=== PATIENT | male | born 1975 | race Caucasian/White ===

== ENCOUNTER 2018-07-15 14:16 | Outpatient (RCR) | payer BC, SELFPAY ==
[2018-07-15 14:55] VITALS: BP 151/86; PULSE 88; RESP 18; TEMP 31.1; BMI 41.2
--- NOTE | 2018-07-15 16:20 | PCM.WC.HP ---
(1) Non-healing wound of lower extremity Status: Acute Current Visit: Yes Code(s): S81.809A - Unspecified open wound, unspecified lower leg, initial encounter (2) Venous insufficiency of left lower extremity Status: Chronic Current Visit: Yes Code(s): I87.2 - Venous insufficiency (chronic) (peripheral) (3) History of vein stripping Status: Chronic Current Visit: Yes Code(s): Z98.890 - Other specified postprocedural states (4) Edema of both lower extremities Status: Chronic Current Visit: Yes Code(s): R60.0 - Localized edema History of Present Illness Date of Service: 07/15/18 Chief Complaint: Nonhealing wound of left lower extremity wound left lower extremity caused by dog scratched March 2018. History of Wound: Patient obtained a left lower leg wound caused by a scratch from his dog 03/2018. He ended up hospitalized with cellulitis and had IV antibiotics. Since March he has been on Keflex for MSSA. He has been applying Neosporin to the site. Patient has a history of vein stripping 15 years ago of that left leg. He has a history of venous stasis. He has significant amount of edema of his lower extremities. Patient has compression stockings that he has not been wearing due to the significant amount of pain of his left lower extremity wound. Patient is obese. Denies smoking. Denies any recent fever chills nausea or vomiting. Past Medical History Past Medical History: Chronic Problems Venous insufficiency of left lower extremity (Chronic) History of vein stripping (Chronic) Edema of both lower extremities (Chronic) Allergies/Adverse Reactions: Allergies shrimp Allergy (Verified 07/17/18 10:06) Unknown Smoking Status: Never smoker Tobacco Use: Non-smoker Review of Systems Constitutional: Denies: Chills, Fever Eyes: Denies: Pain, Vision Change HEENT: Denies: Difficulty Hearing, Difficulty Swallowing, Sinus Congestion Cardiovascular: Denies: Chest Pain, Palpitations Respiratory: Denies: Cough, Shortness of Breath Gastrointestinal: Denies: Diarrhea, Nausea, Vomiting Genitourinary: Denies: Dysuria, Hematuria Musculoskeletal: Reports: Leg Pain - Left lower extremity pain at wound site. Psychiatric: Denies: Anxiety, Depression - Physical Exam Vital Signs Temp Pulse Resp BP 88 F L 88 18 151/86 H 07/15/18 14:55 07/15/18 14:55 07/15/18 14:55 07/15/18 14:55 General: Alert, Oriented x3, Cooperative, No apparent distress HEENT: PERRLA, EOMI Oral: Moist Mucosa Neck: No JVD Lungs: Clear to auscultation, Normal air movement Cardiovascular: Regular rate, Regular Rhythm Extremities: Capillary Refill Less than 3 Seconds, No Calf Tenderness, Diminished Peripheral Pulses, Edema - +3 pitting edema bilateral lower extremities. Bilateral lower extremities discolored skin tone purple hue, skin extremely dry and flaky., Tenderness Skin: Ulcer/ Wound - Left lower extremity anterior wound Wound Measurements and Assessment WC - Nurse 1 - General Ulcer Measurement Start: 07/15/18 14:55 Freq: Status: Active Protocol: Activity Type Activity Date Activity User E-Sign Co-Sign Detail Recorded Client Recorded Date Recorded By Document 07/15/18 14:55 DV [id number] 07/15/18 15:10 DV 07/15/18 14:55 Wound Center Nurse 1 [Ulcer Assessment] #1 Left superior moralez -Combined with other wound No -Current Size (cm) - Length 6.5 -Current Size (cm) - Width 3.7 -Current Size (cm) - Depth 0.2 -Total Square Cm 24.05 -Date of Last Picture (Recall this 07/15/18 field) -Photo Taken Yes -Epithelialization Small 1-33% -Tunneling No -Undermining/Tunneling No -Circular Undermining No -Classification - Thickness Full Thickness without Exposed Support Structure -Exudate Amt Medium (34-66%) -Exudate Type Serosanguineous -Wound Margin Flat & Intact -Granulation Amt Medium (34-66%) -Granulation Quality Red -Slough/Fibrin Yes -Necrosis Amt Medium (34-66%) -Necrotic Tissue Type Adherent Slough -Structure Exposed Fascia Fat Layer Exposed -Texture (Adali-wound Skin Appearance) Assessed Friable Localized Edema Scarring -Moisture (Adali-wound Skin Appearance Assessed ) Maceration -Color (Adali-wound Skin Appearance) Assessed Erythema Hemosiderin Staining -Temperature (Adali-wound Skin No Abnormality Appearance) (Pt Warm) -Tenderness on Palpation (Adali-wound Yes Skin Appearance) -Ulcer Cleansing Rinsed/ Irrigated with Saline -Foul Odor after Cleansing No -Anesthetic Used 5% Lidocaine Gel [Edema Assessment] -Lower Limb Edema Present Yes -Right Calf (cm) 51.0 -Right Ankle (cm) 31.0 -Left Calf (cm) 52.0 -Left Ankle (cm) 31.0 SILVANO - Nurse 2 - General Ulcer CM Notes Start: 07/15/18 14:55 Freq: Status: Active Protocol: Activity Type Activity Date Activity User E-Sign Co-Sign Detail Recorded Client Recorded Date Recorded By Document 07/15/18 15:30 CORI [id number] 07/15/18 15:33 CORI 07/15/18 15:30 Wound Center Nurse 2 [Procedure/Treatment] 2-left inferior moralez -Time 15:31 -Correct Patient Yes -Correct Side, Site, Position Yes -Correct Procedure Yes -Procedure Performed Yes -Type of Procedure Debridement -Clinical Debridement Subcutaneous -Post Debridement Size (cm) - Length 1.3 -Post Debridement Size (cm) - Width 1.2 -Post Debridement Size (cm) - Depth 0.2 -Total Square Cm 1.56 -Wound/Ulcer Outcome Not Healed -Ulcer Cleansing Rinsed/ Irrigated with Saline -Foul Odor after Cleansing No -Bioengineered Tissue No -Bleeding Controlled with Pressure -Treatment Response Procedure Tolerated Well #1 Left superior moralez -Time 15:32 -Correct Patient Yes -Correct Side, Site, Position Yes -Correct Procedure Yes -Procedure Performed Yes -Type of Procedure Debridement -Clinical Debridement Subcutaneous -Post Debridement Size (cm) - Length 2.5 -Post Debridement Size (cm) - Width 1.8 -Post Debridement Size (cm) - Depth 0.2 -Total Square Cm 4.50 -Wound/Ulcer Outcome Not Healed -Ulcer Cleansing Rinsed/ Irrigated with Saline -Foul Odor after Cleansing No -Bioengineered Tissue No -Bleeding Controlled with Pressure -Treatment Response Procedure Tolerated Well [See Physician Procedure note for Specifics] Pain Scale: 0-10 Numeric [Pain] -Is Patient Pain Free? Yes Musculoskeletal: No Tenderness to Palpation of Joints or Extremities Neurological: Neuro grossly intact Psych/Mental Status: Normal Affect, Appropriate, Alert and oriented to time, place, person, mood and affect Debridement Note Post-Debridement Measurements/Treatment SILVANO - Nurse 2 - General Ulcer CM Notes Start: 07/15/18 14:55 Freq: Status: Active Protocol: Activity Type Activity Date Activity User E-Sign Co-Sign Detail Recorded Client Recorded Date Recorded By Document 07/15/18 15:30 [id number] 07/15/18 15:33 07/15/18 15:30 Wound Center Nurse 2 2-left inferior moralez -Time 15:31 -Correct Patient Yes -Correct Side, Site, Position Yes -Correct Procedure Yes -Procedure Performed Yes -Type of Procedure Debridement -Clinical Debridement Subcutaneous -Post Debridement Size (cm) - Length 1.3 -Post Debridement Size (cm) - Width 1.2 -Post Debridement Size (cm) - Depth 0.2 -Total Square Cm 1.56 -Wound/Ulcer Outcome Not Healed -Ulcer Cleansing Rinsed/ Irrigated with Saline -Foul Odor after Cleansing No -Bioengineered Tissue No -Bleeding Controlled with Pressure -Treatment Response Procedure Tolerated Well #1 Left superior moralez -Time 15:32 -Correct Patient Yes -Correct Side, Site, Position Yes -Correct Procedure Yes -Procedure Performed Yes -Type of Procedure Debridement -Clinical Debridement Subcutaneous -Post Debridement Size (cm) - Length 2.5 -Post Debridement Size (cm) - Width 1.8 -Post Debridement Size (cm) - Depth 0.2 -Total Square Cm 4.50 -Wound/Ulcer Outcome Not Healed -Ulcer Cleansing Rinsed/ Irrigated with Saline -Foul Odor after Cleansing No -Bioengineered Tissue No -Bleeding Controlled with Pressure -Treatment Response Procedure Tolerated Well Pain Scale: 0-10 Numeric Is Patient Pain Free? Yes Wound debrided: Left anterior lower extremity Laterality: Left Type of Debridement: Excisional debridement Anesthesia Used: 5% Lidocaine Gel Depth: Down to and including healthy tissue, in the subcutaneous layer Percentage of wound debrided: 100 Instrument Used: 5mm curette Tissue Removed: Subcutaneous tissue, slough and bioderm. Severity: Fat Layer Exposed Amount of bleeding with debridement: Mild Bleeding Controlled with: Pressure Patient tolerated procedure well Assessment/Plan Ordered vascular studies and wound culture. Active Problems Non-healing wound of lower extremity (Acute) Venous insufficiency of left lower extremity (Chronic) History of vein stripping (Chronic) Edema of both lower extremities (Chronic) Assessment: 1. Non-healing wound of lower extremity (Acute). 2. Venous insufficiency of left lower extremity (Chronic). 3. History of vein stripping (Chronic). 4. Edema of both lower extremities (Chronic) Plan: Patient was seen and examined the wound center today plan of care was developed. Subcutaneous debridement was performed today. Patient tolerated the procedure well. Patient's wounds consists of a cluster wound on his left anterior/lateral lower extremity. We will have him apply Aquacel silver daily to the wound. With his significant amount of lower extremity edema we will have him apply double Adonis wrap to left lower extremity until further ocular studies were obtained. He may wear his home compression on his right lower extremity. Instructed to try to elevate his legs for 30 minutes at least 3 times a day. Wound cultures were obtained. Baseline blood work was ordered. Vascular studies were ordered. Patient educated on the importance of diet on wound healing and instructed to increase his protein intake. Patient verbalized understanding. We will have him follow-up in the wound center in 1 week. Update 07/17 2018?wound culture comes back positive for Staphylococcus aureus. Phoned and notified patient to stop his Keflex. We will start him on doxycycline twice daily with food.
[2018-07-15 19:22] LABS: ALB/GLOB Ratio 0.9 RATIO (0.9-2.4); AST(SGOT) 18 U/L (15-37); Alanine Aminotransfer ALT/SGPT 30 U/L (16-61); Albumin, Serum 3.7 g/dL (3.2-5.0); Alkaline Phosphatase 63 U/L (45-117); Anion Gap 9 (5-15); BUN 17 mg/dL (7-18); BUN/Creat Ratio 19.7 RATIO (10-20); Calcium,Total 9.1 mg/dL (8.5-10.1); Chloride 105 mmol/L (98-107); Creatinine, Serum 0.86 mg/dL (0.70-1.30); EST Glomerular Filtration Rate 103 mL/min (>60); Est Glom Filt Rate - Afr Amer 124 mL/min (>60); Estimated Creatinine Clearance 132.37 ml/min; Globulin 3.9 g/dL (2.2-4.2); Glucose 105 mg/dL (74-106); Potassium 3.5 mmol/L (3.5-5.1); Prealbumin 21.4 mg/dL (20.0-40.0); Protein, Total 7.6 g/dL (6.4-8.2); Sodium Level 141 mmol/L (136-145)
[2018-07-15 19:28] LABS: Hematocrit 34.9 % (40-54); Hemoglobin 11.1 g/dl (13.0-16.5); Mean Corp Hgb Conc 31.8 g/gl (32-36); Mean Corpuscular Hgb 28.1 pg (27.0-32.0); Mean Corpuscular Volume 88.4 fL (80-94); Mean Platelet Vol. 11.3 fl (6.2-12.0); Platelet Count 279 K/mm3 (150-450); RBC Distribution Width CV 14.1 % (11.6-14.6); Red Blood Count 3.95 M/mm3 (4.6-6.2); White Blood Count 8.4 K/mm3 (4.4-11.0)
[2018-07-15 19:30] LABS: Scan Indicated on CBC? Y/N NO
== END 2018-07-20 23:59 ==
LOC: WC 14:16
PROVIDERS: Visit Provider Nurse Practitioner Family
DX: I87.2 Venous insufficiency (chronic) (peripheral) (principal); R60.0 Localized edema; S80.812A Abrasion, left lower leg, initial encounter; W45.8XXA Other foreign body or object entering through skin, initial encounter
CPT/HCPCS: 11042; 80053; 84134; 85027; 87070; 87075; 87077; 87186; 87205; 99203; G0463

== ENCOUNTER 2018-08-12 15:30 | Outpatient (RCR) | payer BC, SELFPAY ==
[2018-07-21 01:47] VITALS: BP 151/86; PULSE 88; RESP 18; TEMP 31.1
--- NOTE | 2018-07-22 14:06 | VDLE_ITS ---
Reason For Study: ulcer, pain, swelling RIGHT LEFT CFV is compressible, spontaneous, phasic, CFV is compressible, spontaneous, phasic, competent and demonstrates normal competent, and demonstrates normal augmentation. augmentation. FV is compressible, spontaneous, phasic, FV is compressible, spontaneous, phasic, competent and demonstrates normal competent and demonstrates normal augmentation. augmentation. T/P Trunk is compressible. POP V is compressible, spontaneous, phasic, PTV is compressible. competent and demonstrates normal RT PerV is compressible. augmentation. POP V is compressible with reflux upon T/P Trunk is compressible. augmentation. PTV is compressible. S-F Junction is competent. LT PerV is compressible. GSV is incompetent throughout for greater S-F Junction is incompetent for greater than .5 seconds. GSV measures .490 x .519 cm than .5 seconds. ASV below the knee is incompetent for GSV is partially harvested. Large segment of greater than .5 seconds. ASV measures .432 GSV in the thigh is incompetent for greater x .432 cm. than .5 seconds. GSV measures .876 x .878 SSV is incompetent for greater than .5 cm. Large segment of GSV at the ankle is seconds. SSV measures .2 x .175 cm. incompetent for greater than .5 seconds. GSV Political Analyst V 11 cm proximal to the medial measures .618 x .637 cm. malleolus is incompetent for greater than .5 ASV in the thigh is incompetent for greater seconds. than .5 seconds. ASV measures .790 x .778 Procedure cm. Exam performed in department. SSV is incompetent for greater than .5 The exam was diagnostic. seconds. SSV measures .338 x .364 cm. Political Analyst V 7 cm proximal to the medial malleolus is incompetent for greater than .5 seconds. Interpretation Summary Deep veins of the lower extremities are bilaterally patent and compressible segmentally. There is no evidence of deep vein thrombosis on either side. The right popliteal vein is incompetent. The right common femoral vein and femoral vein are competent. Valvular competence appears intact within the proximal deep venous system on the left . The greater saphenous veins appear bilaterally patent and compressible segmentally. The right sapheno-femoral junction is competent . The left sapheno- femoral junction is incompetent . The right greater saphenous vein appears segmentally incompetent. The left greater saphenous vein has been partially harvested. Of the segments remaining, the left greater saphenous vein is incompetent in the left thigh and near the left ankle. Small saphenous veins are patent and incompetent bilaterally. A right accessory saphenous vein below the knee is incompetent. A left accessory saphenous vein in the thigh is incompetent. An incompetent freight trucker vein is noted in the right calf, located 11 centimeters proximal to the right medial malleolus. An incompetent freight trucker vein is noted in the left calf, located 7 centimeters proximal to the left medial malleolus. Crdering Physician: Maeve Olson NP- Performed By: Kristian Levi RVT and Student
[2018-07-22 15:01] VITALS: BP 164/97; PULSE 79; RESP 16; TEMP 36.9
--- NOTE | 2018-07-22 16:36 | PCM.WC.PN ---
(1) Non-healing wound of lower extremity Status: Acute Current Visit: Yes Code(s): S81.809A - Unspecified open wound, unspecified lower leg, initial encounter (2) Venous insufficiency of left lower extremity Status: Chronic Current Visit: Yes Code(s): I87.2 - Venous insufficiency (chronic) (peripheral) (3) History of vein stripping Status: Chronic Current Visit: No Code(s): Z98.890 - Other specified postprocedural states (4) Edema of both lower extremities Status: Chronic Current Visit: Yes Code(s): R60.0 - Localized edema Type of Wound Date of Service: 07/22/18 Chief Complaint: Nonhealing wound of left lower extremity wound left lower extremity caused by dog scratched March 2018. History of Wound: Patient obtained a left lower leg wound caused by a scratch from his dog 03/2018. He ended up hospitalized with cellulitis and had IV antibiotics. Since March he has been on Keflex for MSSA. He has been applying Neosporin to the site. Patient has a history of vein stripping 15 years ago of that left leg. He has a history of venous stasis. He has significant amount of edema of his lower extremities. Patient has compression stockings that he has not been wearing due to the significant amount of pain of his left lower extremity wound. Patient is obese. Denies smoking. Denies any recent fever chills nausea or vomiting. Progress of Wound: Improving. - Physical Exam Vital Signs Temp Pulse Resp BP 98.4 F 79 16 164/97 H 07/22/18 15:01 07/22/18 15:01 07/22/18 15:01 07/22/18 15:01 General: Alert, Oriented x3, Cooperative HEENT: Atraumatic Oral: Moist Mucosa Cardiovascular: Regular rate Extremities: Edema, Peripheral Pulses Normal Skin: Ulcer/ Wound - Left lower extremity cluster ulcer Wound Measurements and Assessment WC - Nurse 1 - General Ulcer Measurement Start: 07/22/18 15:00 Freq: Status: Active Protocol: Activity Type Activity Date Activity User E-Sign Co-Sign Detail Recorded Client Recorded Date Recorded By Document 07/22/18 15:01 [facility] [id number] 07/22/18 15:10 [facility] 07/22/18 15:01 Wound Center Nurse 1 [Ulcer Assessment] 2-left inferior moralez -Combined with other wound No -Current Size (cm) - Length 1.3 -Current Size (cm) - Width 1.4 -Current Size (cm) - Depth 0.2 -Total Square Cm 1.82 -Photo Taken No -Epithelialization None Present -Tunneling No -Undermining/Tunneling No -Circular Undermining No -Exudate Amt Small (1-33%) -Exudate Type Serosanguineous -Wound Margin Distinct, Outline Attached -Granulation Amt Small (1-33%) -Granulation Quality Red -Slough/Fibrin Yes -Necrosis Amt Large (67-100%) -Necrotic Tissue Type Adherent Slough -Texture (Adali-wound Skin Appearance) Scarring -Moisture (Adali-wound Skin Appearance Dry/Scaly ) -Color (Adali-wound Skin Appearance) Hemosiderin Staining -Temperature (Adali-wound Skin No Abnormality Appearance) (Pt Warm) -Tenderness on Palpation (Adali-wound Yes Skin Appearance) -Ulcer Cleansing Rinsed/ Irrigated with Saline -Foul Odor after Cleansing No -Anesthetic Used 4% Lidocaine Solution 5% Lidocaine Gel #1 Left superior moralez -Combined with other wound No -Current Size (cm) - Length 2.4 -Current Size (cm) - Width 2.1 -Current Size (cm) - Depth 0.2 -Total Square Cm 5.04 -Photo Taken No -Epithelialization None Present -Tunneling No -Undermining/Tunneling No -Circular Undermining No -Exudate Amt Small (1-33%) -Exudate Type Serosanguineous -Wound Margin Distinct, Outline Attached -Granulation Amt Small (1-33%) -Granulation Quality Red -Slough/Fibrin Yes -Necrosis Amt Large (67-100%) -Necrotic Tissue Type Adherent Slough -Texture (Adali-wound Skin Appearance) Scarring -Moisture (Adali-wound Skin Appearance Dry/Scaly ) -Color (Adali-wound Skin Appearance) Hemosiderin Staining -Temperature (Adali-wound Skin No Abnormality Appearance) (Pt Warm) -Tenderness on Palpation (Adali-wound Yes Skin Appearance) -Ulcer Cleansing Rinsed/ Irrigated with Saline -Foul Odor after Cleansing No -Anesthetic Used 4% Lidocaine Solution 5% Lidocaine Gel [Edema Assessment] -Lower Limb Edema Present Yes -Left Calf (cm) 49.9 -Left Ankle (cm) 30.1 WC - Nurse 2 - General Ulcer CM Notes Start: 07/22/18 15:00 Freq: Status: Active Protocol: Activity Type Activity Date Activity User E-Sign Co-Sign Detail Recorded Client Recorded Date Recorded By Document 07/22/18 15:43 DV [id number] 07/22/18 15:45 DV 07/22/18 15:43 Wound Center Nurse 2 [Procedure/Treatment] 2-left inferior moralez -Time 15:43 -Correct Patient Yes -Correct Side, Site, Position Yes -Correct Procedure Yes -Procedure Performed Yes -Type of Procedure Debridement -Clinical Debridement Subcutaneous -Post Debridement Size (cm) - Length 1.3 -Post Debridement Size (cm) - Width 1.0 -Post Debridement Size (cm) - Depth 0.2 -Total Square Cm 1.30 -Wound/Ulcer Outcome Not Healed -Ulcer Cleansing Rinsed/ Irrigated with Saline -Foul Odor after Cleansing No -Bioengineered Tissue No -Bleeding Controlled with Pressure -Treatment Response Procedure Tolerated Well #1 Left superior moralez -Time 15:43 -Correct Patient Yes -Correct Side, Site, Position Yes -Correct Procedure Yes -Procedure Performed Yes -Type of Procedure Debridement -Clinical Debridement Subcutaneous -Post Debridement Size (cm) - Length 2.2 -Post Debridement Size (cm) - Width 1.7 -Post Debridement Size (cm) - Depth 0.2 -Total Square Cm 3.74 -Wound/Ulcer Outcome Not Healed -Ulcer Cleansing Rinsed/ Irrigated with Saline -Foul Odor after Cleansing No -Bioengineered Tissue No -Bleeding Controlled with Pressure -Treatment Response Procedure Tolerated Well [See Physician Procedure note for Specifics] Pain Scale: 0-10 Numeric [Pain] -Is Patient Pain Free? Yes Debridement Note Post-Debridement Measurements/Treatment WC - Nurse 2 - General Ulcer CM Notes Start: 07/22/18 15:00 Freq: Status: Active Protocol: Activity Type Activity Date Activity User E-Sign Co-Sign Detail Recorded Client Recorded Date Recorded By Document 07/22/18 15:43 DV [id number] 07/22/18 15:45 DV 07/22/18 15:43 Wound Center Nurse 2 2-left inferior moralez -Time 15:43 -Correct Patient Yes -Correct Side, Site, Position Yes -Correct Procedure Yes -Procedure Performed Yes -Type of Procedure Debridement -Clinical Debridement Subcutaneous -Post Debridement Size (cm) - Length 1.3 -Post Debridement Size (cm) - Width 1.0 -Post Debridement Size (cm) - Depth 0.2 -Total Square Cm 1.30 -Wound/Ulcer Outcome Not Healed -Ulcer Cleansing Rinsed/ Irrigated with Saline -Foul Odor after Cleansing No -Bioengineered Tissue No -Bleeding Controlled with Pressure -Treatment Response Procedure Tolerated Well #1 Left superior moralez -Time 15:43 -Correct Patient Yes -Correct Side, Site, Position Yes -Correct Procedure Yes -Procedure Performed Yes -Type of Procedure Debridement -Clinical Debridement Subcutaneous -Post Debridement Size (cm) - Length 2.2 -Post Debridement Size (cm) - Width 1.7 -Post Debridement Size (cm) - Depth 0.2 -Total Square Cm 3.74 -Wound/Ulcer Outcome Not Healed -Ulcer Cleansing Rinsed/ Irrigated with Saline -Foul Odor after Cleansing No -Bioengineered Tissue No -Bleeding Controlled with Pressure -Treatment Response Procedure Tolerated Well Pain Scale: 0-10 Numeric Is Patient Pain Free? Yes Wound debrided: Left lower extremity superior ulcer Laterality: Left Type of Debridement: Excisional debridement Anesthesia Used: 4% Lidocaine Solution Depth: in the subcutaneous layer Percentage of wound debrided: 100 Instrument Used: 7mm curette Tissue Removed: Subcutaneous tissue and slough. Severity: Fat Layer Exposed Amount of bleeding with debridement: Mild Bleeding Controlled with: Pressure Patient tolerated procedure well - Additional Wound Wound debrided: Left lower extremity inferior ulcer Laterality: Left Type of Debridement: Excisional debridement Anesthesia Used: 4% Lidocaine Solution Depth: in the subcutaneous layer Percentage of wound debrided: 100 Instrument Used: 7mm curette Severity: Fat Layer Exposed Amount of bleeding with debridement: None Bleeding Controlled with: Pressure Patient tolerated procedure: Patient tolerated procedure well Assessment/Plan Active Problems Non-healing wound of lower extremity (Acute) Venous insufficiency of left lower extremity (Chronic) Edema of both lower extremities (Chronic) Assessment: 1. Non-healing wound of lower extremity (Acute). 2. Venous insufficiency of left lower extremity (Chronic). 3. History of vein stripping (Chronic). 4. Edema of both lower extremities (Chronic) Plan: Subcutaneous debridement was performed today. Patient tolerated the procedure well. Patient's wounds consists of a cluster wound on his left anterior/lateral lower extremity. He has been having issues with the Aquacel silver sticking to his wound and being very uncomfortable. We will have him apply Adaptic then apply Aquacel silver daily to the wound. With his significant amount of lower extremity edema we will have him apply double Adonis wrap to left lower extremity until further vascular studies were obtained. He may wear his home compression on his right lower extremity. Wound cultures showed Staphylococcus aureus and anaerobic cocci patient was started last week on doxycycline, will continue that and add Flagyl. Instructed to try to elevate his legs for 30 minutes at least 3 times a day. Wound cultures were obtained. Baseline blood work was ordered. Vascular studies were ordered. Patient educated on the importance of diet on wound healing and instructed to increase his protein intake. Patient verbalized understanding. We will have him follow-up in the wound center in 1 week. Code Visit [id number]: 18404 Greta subq tissue 20 sq cm/<
--- NOTE | 2018-07-22 16:44 | PN.PCM_ITS ---
(1) Non-healing wound of lower extremity Status: Acute Current Visit: Yes Code(s): S81.809A - Unspecified open wound, unspecified lower leg, initial encounter (2) Venous insufficiency of left lower extremity Status: Chronic Current Visit: Yes Code(s): I87.2 - Venous insufficiency (chronic) (peripheral) (3) History of vein stripping Status: Chronic Current Visit: No Code(s): Z98.890 - Other specified postprocedural states (4) Edema of both lower extremities Status: Chronic Current Visit: Yes Code(s): R60.0 - Localized edema Type of Wound Date of Service: 07/22/18 Chief Complaint: Nonhealing wound of left lower extremity wound left lower extremity caused by dog scratched March 2018. History of Wound: Patient obtained a left lower leg wound caused by a scratch from his dog 03/2018. He ended up hospitalized with cellulitis and had IV antibiotics. Since March he has been on Keflex for MSSA. He has been applying Neosporin to the site. Patient has a history of vein stripping 15 years ago of that left leg. He has a history of venous stasis. He has significant amount of edema of his lower extremities. Patient has compression stockings that he has not been wearing due to the significant amount of pain of his left lower extremity wound. Patient is obese. Denies smoking. Denies any recent fever chills nausea or vomiting. Progress of Wound: Improving. - Physical Exam Vital Signs Temp Pulse Resp BP 98.4 F 79 16 164/97 H 07/22/18 15:01 07/22/18 15:01 07/22/18 15:01 07/22/18 15:01 General: Alert, Oriented x3, Cooperative HEENT: Atraumatic Oral: Moist Mucosa Cardiovascular: Regular rate Extremities: Edema, Peripheral Pulses Normal Skin: Ulcer/ Wound - Left lower extremity cluster ulcer Wound Measurements and Assessment WC - Nurse 1 - General Ulcer Measurement Start: 07/22/18 15:00 Freq: Status: Active Protocol: Activity Type Activity Date Activity User E-Sign Co-Sign Detail Recorded Client Recorded Date Recorded By Document 07/22/18 15:01 [facility] [id number] 07/22/18 15:10 [facility] 07/22/18 15:01 Wound Center Nurse 1 [Ulcer Assessment] 2-left inferior moralez -Combined with other wound No -Current Size (cm) - Length 1.3 -Current Size (cm) - Width 1.4 -Current Size (cm) - Depth 0.2 -Total Square Cm 1.82 -Photo Taken No -Epithelialization None Present -Tunneling No -Undermining/Tunneling No -Circular Undermining No -Exudate Amt Small (1-33%) -Exudate Type Serosanguineous -Wound Margin Distinct, Outline Attached -Granulation Amt Small (1-33%) -Granulation Quality Red -Slough/Fibrin Yes -Necrosis Amt Large (67-100%) -Necrotic Tissue Type Adherent Slough -Texture (Adali-wound Skin Appearance) Scarring -Moisture (Adali-wound Skin Appearance Dry/Scaly ) -Color (Adali-wound Skin Appearance) Hemosiderin Staining -Temperature (Adali-wound Skin No Abnormality Appearance) (Pt Warm) -Tenderness on Palpation (Adali-wound Yes Skin Appearance) -Ulcer Cleansing Rinsed/ Irrigated with Saline -Foul Odor after Cleansing No -Anesthetic Used 4% Lidocaine Solution 5% Lidocaine Gel #1 Left superior moralez -Combined with other wound No -Current Size (cm) - Length 2.4 -Current Size (cm) - Width 2.1 -Current Size (cm) - Depth 0.2 -Total Square Cm 5.04 -Photo Taken No -Epithelialization None Present -Tunneling No -Undermining/Tunneling No -Circular Undermining No -Exudate Amt Small (1-33%) -Exudate Type Serosanguineous -Wound Margin Distinct, Outline Attached -Granulation Amt Small (1-33%) -Granulation Quality Red -Slough/Fibrin Yes -Necrosis Amt Large (67-100%) -Necrotic Tissue Type Adherent Slough -Texture (Adali-wound Skin Appearance) Scarring -Moisture (Adali-wound Skin Appearance Dry/Scaly ) -Color (Adali-wound Skin Appearance) Hemosiderin Staining -Temperature (Adali-wound Skin No Abnormality Appearance) (Pt Warm) -Tenderness on Palpation (Adali-wound Yes Skin Appearance) -Ulcer Cleansing Rinsed/ Irrigated with Saline -Foul Odor after Cleansing No -Anesthetic Used 4% Lidocaine Solution 5% Lidocaine Gel [Edema Assessment] -Lower Limb Edema Present Yes -Left Calf (cm) 49.9 -Left Ankle (cm) 30.1 WC - Nurse 2 - General Ulcer CM Notes Start: 07/22/18 15:00 Freq: Status: Active Protocol: Activity Type Activity Date Activity User E-Sign Co-Sign Detail Recorded Client Recorded Date Recorded By Document 07/22/18 15:43 DV [id number] 07/22/18 15:45 DV 07/22/18 15:43 Wound Center Nurse 2 [Procedure/Treatment] 2-left inferior moralez -Time 15:43 -Correct Patient Yes -Correct Side, Site, Position Yes -Correct Procedure Yes -Procedure Performed Yes -Type of Procedure Debridement -Clinical Debridement Subcutaneous -Post Debridement Size (cm) - Length 1.3 -Post Debridement Size (cm) - Width 1.0 -Post Debridement Size (cm) - Depth 0.2 -Total Square Cm 1.30 -Wound/Ulcer Outcome Not Healed -Ulcer Cleansing Rinsed/ Irrigated with Saline -Foul Odor after Cleansing No -Bioengineered Tissue No -Bleeding Controlled with Pressure -Treatment Response Procedure Tolerated Well #1 Left superior moralez -Time 15:43 -Correct Patient Yes -Correct Side, Site, Position Yes -Correct Procedure Yes -Procedure Performed Yes -Type of Procedure Debridement -Clinical Debridement Subcutaneous -Post Debridement Size (cm) - Length 2.2 -Post Debridement Size (cm) - Width 1.7 -Post Debridement Size (cm) - Depth 0.2 -Total Square Cm 3.74 -Wound/Ulcer Outcome Not Healed -Ulcer Cleansing Rinsed/ Irrigated with Saline -Foul Odor after Cleansing No -Bioengineered Tissue No -Bleeding Controlled with Pressure -Treatment Response Procedure Tolerated Well [See Physician Procedure note for Specifics] Pain Scale: 0-10 Numeric [Pain] -Is Patient Pain Free? Yes Debridement Note Post-Debridement Measurements/Treatment WC - Nurse 2 - General Ulcer CM Notes Start: 07/22/18 15:00 Freq: Status: Active Protocol: Activity Type Activity Date Activity User E-Sign Co-Sign Detail Recorded Client Recorded Date Recorded By Document 07/22/18 15:43 DV [id number] 07/22/18 15:45 DV 07/22/18 15:43 Wound Center Nurse 2 2-left inferior moralez -Time 15:43 -Correct Patient Yes -Correct Side, Site, Position Yes -Correct Procedure Yes -Procedure Performed Yes -Type of Procedure Debridement -Clinical Debridement Subcutaneous -Post Debridement Size (cm) - Length 1.3 -Post Debridement Size (cm) - Width 1.0 -Post Debridement Size (cm) - Depth 0.2 -Total Square Cm 1.30 -Wound/Ulcer Outcome Not Healed -Ulcer Cleansing Rinsed/ Irrigated with Saline -Foul Odor after Cleansing No -Bioengineered Tissue No -Bleeding Controlled with Pressure -Treatment Response Procedure Tolerated Well #1 Left superior moralez -Time 15:43 -Correct Patient Yes -Correct Side, Site, Position Yes -Correct Procedure Yes -Procedure Performed Yes -Type of Procedure Debridement -Clinical Debridement Subcutaneous -Post Debridement Size (cm) - Length 2.2 -Post Debridement Size (cm) - Width 1.7 -Post Debridement Size (cm) - Depth 0.2 -Total Square Cm 3.74 -Wound/Ulcer Outcome Not Healed -Ulcer Cleansing Rinsed/ Irrigated with Saline -Foul Odor after Cleansing No -Bioengineered Tissue No -Bleeding Controlled with Pressure -Treatment Response Procedure Tolerated Well Pain Scale: 0-10 Numeric Is Patient Pain Free? Yes Wound debrided: Left lower extremity superior ulcer Laterality: Left Type of Debridement: Excisional debridement Anesthesia Used: 4% Lidocaine Solution Depth: in the subcutaneous layer Percentage of wound debrided: 100 Instrument Used: 7mm curette Tissue Removed: Subcutaneous tissue and slough. Severity: Fat Layer Exposed Amount of bleeding with debridement: Mild Bleeding Controlled with: Pressure Patient tolerated procedure well - Additional Wound Wound debrided: Left lower extremity inferior ulcer Laterality: Left Type of Debridement: Excisional debridement Anesthesia Used: 4% Lidocaine Solution Depth: in the subcutaneous layer Percentage of wound debrided: 100 Instrument Used: 7mm curette Severity: Fat Layer Exposed Amount of bleeding with debridement: None Bleeding Controlled with: Pressure Patient tolerated procedure: Patient tolerated procedure well Assessment/Plan Active Problems Non-healing wound of lower extremity (Acute) Venous insufficiency of left lower extremity (Chronic) Edema of both lower extremities (Chronic) Assessment: 1. Non-healing wound of lower extremity (Acute). 2. Venous insufficiency of left lower extremity (Chronic). 3. History of vein stripping (Chronic). 4. Edema of both lower extremities (Chronic) Plan: Subcutaneous debridement was performed today. Patient tolerated the procedure well. Patient's wounds consists of a cluster wound on his left ante rior/lateral lower extremity. He has been having issues with the Aquacel silver sticking to his wound and being very uncomfortable. We will have him apply Adaptic then apply Aquacel silver daily to the wound. With his significant amount of lower extremity edema we will have him apply double Adonis wrap to left lower extremity until further vascular studies were obtained. He may wear his home compression on his right lower extremity. Wound cultures showed Staphylococcus aureus and anaerobic cocci patient was started last week on doxycycline, will continue that and add Flagyl. Instructed to try to elevate his legs for 30 minutes at least 3 times a day. Wound cultures were obtained. Baseline blood work was ordered. Vascular studies were ordered. Patient educated on the importance of diet on wound healing and instructed to increase his protein intake. Patient verbalized understanding. We will have him follow- up in the wound center in 1 week. Code Visit 111xxx-113xx: [id number] Greta subq tissue 20 sq cm/<
[2018-07-29 15:28] VITALS: BP 140/77; PULSE 88; RESP 18; TEMP 36.6
--- NOTE | 2018-07-31 08:38 | PCM.WC.PN ---
(1) Non-healing wound of lower extremity Status: Acute Current Visit: Yes Code(s): S81.809A - Unspecified open wound, unspecified lower leg, initial encounter (2) Venous insufficiency of left lower extremity Status: Chronic Current Visit: Yes Code(s): I87.2 - Venous insufficiency (chronic) (peripheral) (3) History of vein stripping Status: Chronic Current Visit: No Code(s): Z98.890 - Other specified postprocedural states (4) Edema of both lower extremities Status: Chronic Current Visit: Yes Code(s): R60.0 - Localized edema Type of Wound Date of Service: 07/29/18 Chief Complaint: Nonhealing wound of left lower extremity wound left lower extremity caused by dog scratched March 2018. History of Wound: Patient obtained a left lower leg wound caused by a scratch from his dog 03/2018. He ended up hospitalized with cellulitis and had IV antibiotics. Since March he has been on Keflex for MSSA. He has been applying Neosporin to the site. Patient has a history of vein stripping 15 years ago of that left leg. He has a history of venous stasis. He has significant amount of edema of his lower extremities. Patient has compression stockings that he has not been wearing due to the significant amount of pain of his left lower extremity wound. Patient is obese. Denies smoking. Denies any recent fever chills nausea or vomiting. Progress of Wound: Improving. - Physical Exam Vital Signs Temp Pulse Resp BP 97.8 F 88 18 140/77 H 07/29/18 15:28 07/29/18 15:28 07/29/18 15:28 07/29/18 15:28 General: Alert, Oriented x3 HEENT: Atraumatic Lungs: Normal air movement Cardiovascular: Regular rate Extremities: Diminished Peripheral Pulses, Edema Skin: Ulcer/ Wound - Left lower extremity wound Wound Measurements and Assessment WC - Nurse 1 - General Ulcer Measurement Start: 07/22/18 15:00 Freq: Status: Active Protocol: Activity Type Activity Date Activity User E-Sign Co-Sign Detail Recorded Client Recorded Date Recorded By Document 07/29/18 15:28 DL [id number] 07/29/18 15:34 DL 07/29/18 15:28 Wound Center Nurse 1 [Ulcer Assessment] 2-left inferior moralez -Current Size (cm) - Length 1 -Current Size (cm) - Width 0.8 -Current Size (cm) - Depth 0.1 -Total Square Cm 0.8 -Photo Taken No -Exudate Amt Small (1-33%) -Exudate Type Serosanguineous -Wound Margin Distinct, Outline Attached -Granulation Amt Large (67-100%) -Granulation Quality Red -Necrosis Amt Small (1-33%) -Necrotic Tissue Type Adherent Slough -Structure Exposed N/A -Texture (Adali-wound Skin Appearance) Localized Edema Scarring -Moisture (Adali-wound Skin Appearance No Abnormality ) -Color (Adali-wound Skin Appearance) Erythema Hemosiderin Staining Rubor -Temperature (Adali-wound Skin No Abnormality Appearance) (Pt Warm) -Tenderness on Palpation (Adali-wound Yes Skin Appearance) -Ulcer Cleansing Rinsed/ Irrigated with Saline -Foul Odor after Cleansing No -Anesthetic Used 4% Lidocaine Solution #1 Left superior moralez -Current Size (cm) - Length 2.3 -Current Size (cm) - Width 1.5 -Current Size (cm) - Depth 0.1 -Total Square Cm 3.45 -Photo Taken No -Exudate Amt Small (1-33%) -Exudate Type Serosanguineous -Wound Margin Distinct, Outline Attached -Granulation Amt Small (1-33%) -Granulation Quality [place] -Necrosis Amt Large (67-100%) -Necrotic Tissue Type Adherent Slough -Structure Exposed N/A -Texture (Adali-wound Skin Appearance) Localized Edema Scarring -Moisture (Adali-wound Skin Appearance No Abnormality ) -Color (Adali-wound Skin Appearance) Erythema Hemosiderin Staining Rubor [Edema Assessment] -Left Calf (cm) 47.5 -Left Ankle (cm) 28 WC - Nurse 2 - General Ulcer CM Notes Start: 07/22/18 15:00 Freq: Status: Active Protocol: Activity Type Activity Date Activity User E-Sign Co-Sign Detail Recorded Client Recorded Date Recorded By Document 07/29/18 15:58 CORI [id number] 07/29/18 16:05 CORI 07/29/18 15:58 Wound Center Nurse 2 [Procedure/Treatment] 2-left inferior moralez -Time 15:58 -Correct Patient Yes -Correct Side, Site, Position Yes -Correct Procedure Yes -Procedure Performed Yes -Type of Procedure Debridement -Clinical Debridement Subcutaneous -Post Debridement Size (cm) - Length 1.0 -Post Debridement Size (cm) - Width 1.0 -Post Debridement Size (cm) - Depth 0.2 -Total Square Cm 1.00 -Wound/Ulcer Outcome Not Healed -Ulcer Cleansing Rinsed/ Irrigated with Saline -Foul Odor after Cleansing No -Bioengineered Tissue No -Bleeding Controlled with Pressure -Treatment Response Procedure Tolerated Well #1 Left superior moralez -Time 15:58 -Correct Patient Yes -Correct Side, Site, Position Yes -Correct Procedure Yes -Procedure Performed Yes -Type of Procedure Debridement -Clinical Debridement Subcutaneous -Post Debridement Size (cm) - Length 2.0 -Post Debridement Size (cm) - Width 1.9 -Post Debridement Size (cm) - Depth 0.3 -Total Square Cm 3.80 -Wound/Ulcer Outcome Not Healed -Ulcer Cleansing Rinsed/ Irrigated with Saline -Foul Odor after Cleansing No -Bioengineered Tissue No -Bleeding Controlled with Pressure -Treatment Response Procedure Tolerated Well [See Physician Procedure note for Specifics] Pain Scale: 0-10 Numeric [Pain] -Is Patient Pain Free? Yes Musculoskeletal: No Tenderness to Palpation of Joints or Extremities Neurological: Neuro grossly intact Psych/Mental Status: Normal Affect, Appropriate Debridement Note Post-Debridement Measurements/Treatment WC - Nurse 2 - General Ulcer CM Notes Start: 07/22/18 15:00 Freq: Status: Active Protocol: Activity Type Activity Date Activity User E-Sign Co-Sign Detail Recorded Client Recorded Date Recorded By Document 07/22/18 15:43 DV [id number] 07/22/18 15:45 DV Document 07/29/18 15:58 [id number] 07/29/18 16:05 07/22/18 07/29/18 15:43 15:58 Wound Center Nurse 2 2-left inferior moralez -Time 15:43 15:58 -Correct Patient Yes Yes -Correct Side, Site, Position Yes Yes -Correct Procedure Yes Yes -Procedure Performed Yes Yes -Type of Procedure Debridement Debridement -Clinical Debridement Subcutaneous Subcutaneous -Post Debridement Size (cm) - Length 1.3 1.0 -Post Debridement Size (cm) - Width 1.0 1.0 -Post Debridement Size (cm) - Depth 0.2 0.2 -Total Square Cm 1.30 1.00 -Wound/Ulcer Outcome Not Healed Not Healed -Ulcer Cleansing Rinsed/ Rinsed/ Irrigated with Irrigated with Saline Saline -Foul Odor after Cleansing No No -Bioengineered Tissue No No -Bleeding Controlled with Pressure Pressure -Treatment Response Procedure Procedure Tolerated Well Tolerated Well #1 Left superior moralez -Time 15:43 15:58 -Correct Patient Yes Yes -Correct Side, Site, Position Yes Yes -Correct Procedure Yes Yes -Procedure Performed Yes Yes -Type of Procedure Debridement Debridement -Clinical Debridement Subcutaneous Subcutaneous -Post Debridement Size (cm) - Length 2.2 2.0 -Post Debridement Size (cm) - Width 1.7 1.9 -Post Debridement Size (cm) - Depth 0.2 0.3 -Total Square Cm 3.74 3.80 -Wound/Ulcer Outcome Not Healed Not Healed -Ulcer Cleansing Rinsed/ Rinsed/ Irrigated with Irrigated with Saline Saline -Foul Odor after Cleansing No No -Bioengineered Tissue No No -Bleeding Controlled with Pressure Pressure -Treatment Response Procedure Procedure Tolerated Well Tolerated Well Pain Scale: 0-10 Numeric Is Patient Pain Free? Yes Yes Wound debrided: Left lower extremity wound Laterality: Left Type of Debridement: Excisional debridement Anesthesia Used: 5% Lidocaine Gel Depth: in the subcutaneous layer Percentage of wound debrided: 100 Instrument Used: 5mm curette Tissue Removed: Subcutaneous tissue and slough. Severity: Limited To Skin Breakdown Amount of bleeding with debridement: Mild Bleeding Controlled with: Pressure Patient tolerated procedure well Assessment/Plan Active Problems Non-healing wound of lower extremity (Acute) Venous insufficiency of left lower extremity (Chronic) Edema of both lower extremities (Chronic) Assessment: 1. Non-healing wound of lower extremity (Acute). 2. Venous insufficiency of left lower extremity (Chronic). 3. History of vein stripping (Chronic). 4. Edema of both lower extremities (Chronic) Plan: Subcutaneous debridement was performed today. Patient tolerated the procedure well. Patient's wounds consists of a cluster wound on his left anterior/lateral lower extremity. He has been having issues with the Aquacel silver sticking to his wound and being very uncomfortable. He has not been applying Adaptic then apply Aquacel silver daily to the wound. He is complaining of having a burning pain with dressing changes. We will put him on moistened Bhavna dressing daily. With his significant amount of lower extremity edema we will have him apply surepress to left lower extremity. He may wear his home compression on his right lower extremity. He has an appointment with Dr. Carrillo 08/13/18 Wound cultures showed Staphylococcus aureus and anaerobic cocci patient was started last week on doxycycline, will continue that and add Flagyl. Instructed to try to elevate his legs for 30 minutes at least 3 times a day. Wound cultures were obtained. Baseline blood work was ordered. Venous doppler studies showed Right popliteal vein incompetent. Left sapheno-femoral junction is incompetent. RGS segmentally incompetent. Left GSV has been partially harvested. Of segments remaing, the left GSV is incompetent in the left thigh and near the left ankle. Small saphenous veins are patent and incompetent bilaterally. A right accessory saphenous vein below the knee is incompetent. A left accessory saphenous vein in the thigh is incompetent. 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 An incompetent school psychologist vein is noted in the left calf proximal to the left medial malleolus. Patient educated on the importance of diet on wound healing and instructed to increase his protein intake. Patient verbalized understanding. We will have him follow-up in the wound center in 1 week. Code Visit 111xxx-[id number]: [id number] Greta subq tissue 20 sq cm/<
--- NOTE | 2018-07-31 08:42 | PN.PCM_ITS ---
(1) Non-healing wound of lower extremity Status: Acute Current Visit: Yes Code(s): S81.809A - Unspecified open wound, unspecified lower leg, initial encounter (2) Venous insufficiency of left lower extremity Status: Chronic Current Visit: Yes Code(s): I87.2 - Venous insufficiency (chronic) (peripheral) (3) History of vein stripping Status: Chronic Current Visit: No Code(s): Z98.890 - Other specified postprocedural states (4) Edema of both lower extremities Status: Chronic Current Visit: Yes Code(s): R60.0 - Localized edema Type of Wound Date of Service: 07/29/18 Chief Complaint: Nonhealing wound of left lower extremity wound left lower extremity caused by dog scratched March 2018. History of Wound: Patient obtained a left lower leg wound caused by a scratch from his dog 03/2018. He ended up hospitalized with cellulitis and had IV antibiotics. Since March he has been on Keflex for MSSA. He has been applying Neosporin to the site. Patient has a history of vein stripping 15 years ago of that left leg. He has a history of venous stasis. He has significant amount of edema of his lower extremities. Patient has compression stockings that he has not been wearing due to the significant amount of pain of his left lower extremity wound. Patient is obese. Denies smoking. Denies any recent fever chills nausea or vomiting. Progress of Wound: Improving. - Physical Exam Vital Signs Temp Pulse Resp BP 97.8 F 88 18 140/77 H 07/29/18 15:28 07/29/18 15:28 07/29/18 15:28 07/29/18 15:28 General: Alert, Oriented x3 HEENT: Atraumatic Lungs: Normal air movement Cardiovascular: Regular rate Extremities: Diminished Peripheral Pulses, Edema Skin: Ulcer/ Wound - Left lower extremity wound Wound Measurements and Assessment WC - Nurse 1 - General Ulcer Measurement Start: 07/22/18 15:00 Freq: Status: Active Protocol: Activity Type Activity Date Activity User E-Sign Co-Sign Detail Recorded Client Recorded Date Recorded By Document 07/29/18 15:28 DL [id number] 07/29/18 15:34 DL 07/29/18 15:28 Wound Center Nurse 1 [Ulcer Assessment] 2-left inferior moralez -Current Size (cm) - Length 1 -Current Size (cm) - Width 0.8 -Current Size (cm) - Depth 0.1 -Total Square Cm 0.8 -Photo Taken No -Exudate Amt Small (1-33%) -Exudate Type Serosanguineous -Wound Margin Distinct, Outline Attached -Granulation Amt Large (67-100%) -Granulation Quality Red -Necrosis Amt Small (1-33%) -Necrotic Tissue Type Adherent Slough -Structure Exposed N/A -Texture (Adali-wound Skin Appearance) Localized Edema Scarring -Moisture (Adali-wound Skin Appearance No Abnormality ) -Color (Adali-wound Skin Appearance) Erythema Hemosiderin Staining Rubor -Temperature (Adali-wound Skin No Abnormality Appearance) (Pt Warm) -Tenderness on Palpation (Adali-wound Yes Skin Appearance) -Ulcer Cleansing Rinsed/ Irrigated with Saline -Foul Odor after Cleansing No -Anesthetic Used 4% Lidocaine Solution #1 Left superior moralez -Current Size (cm) - Length 2.3 -Current Size (cm) - Width 1.5 -Current Size (cm) - Depth 0.1 -Total Square Cm 3.45 -Photo Taken No -Exudate Amt Small (1-33%) -Exudate Type Serosanguineous -Wound Margin Distinct, Outline Attached -Granulation Amt Small (1-33%) -Granulation Quality [place] -Necrosis Amt Large (67-100%) -Necrotic Tissue Type Adherent Slough -Structure Exposed N/A -Texture (Adali-wound Skin Appearance) Localized Edema Scarring -Moisture (Adali-wound Skin Appearance No Abnormality ) -Color (Adali-wound Skin Appearance) Erythema Hemosiderin Staining Rubor [Edema Assessment] -Left Calf (cm) 47.5 -Left Ankle (cm) 28 WC - Nurse 2 - General Ulcer CM Notes Start: 07/22/18 15:00 Freq: Status: Active Protocol: Activity Type Activity Date Activity User E-Sign Co-Sign Detail Recorded Client Recorded Date Recorded By Document 07/29/18 15:58 CORI [id number] 07/29/18 16:05 COIR 07/29/18 15:58 Wound Center Nurse 2 [Procedure/Treatment] 2-left inferior moralez -Time 15:58 -Correct Patient Yes -Correct Side, Site, Position Yes -Correct Procedure Yes -Procedure Performed Yes -Type of Procedure Debridement -Clinical Debridement Subcutaneous -Post Debridement Size (cm) - Length 1.0 -Post Debridement Size (cm) - Width 1.0 -Post Debridement Size (cm) - Depth 0.2 -Total Square Cm 1.00 -Wound/Ulcer Outcome Not Healed -Ulcer Cleansing Rinsed/ Irrigated with Saline -Foul Odor after Cleansing No -Bioengineered Tissue No -Bleeding Controlled with Pressure -Treatment Response Procedure Tolerated Well #1 Left superior moralez -Time 15:58 -Correct Patient Yes -Correct Side, Site, Position Yes -Correct Procedure Yes -Procedure Performed Yes -Type of Procedure Debridement -Clinical Debridement Subcutaneous -Post Debridement Size (cm) - Length 2.0 -Post Debridement Size (cm) - Width 1.9 -Post Debridement Size (cm) - Depth 0.3 -Total Square Cm 3.80 -Wound/Ulcer Outcome Not Healed -Ulcer Cleansing Rinsed/ Irrigated with Saline -Foul Odor after Cleansing No -Bioengineered Tissue No -Bleeding Controlled with Pressure -Treatment Response Procedure Tolerated Well [See Physician Procedure note for Specifics] Pain Scale: 0-10 Numeric [Pain] -Is Patient Pain Free? Yes Musculoskeletal: No Tenderness to Palpation of Joints or Extremities Neurological: Neuro grossly intact Psych/Mental Status: Normal Affect, Appropriate Debridement Note Post-Debridement Measurements/Treatment WC - Nurse 2 - General Ulcer CM Notes Start: 07/22/18 15:00 Freq: Status: Active Protocol: Activity Type Activity Date Activity User E-Sign Co-Sign Detail Recorded Client Recorded Date Recorded By Document 07/22/18 15:43 DV [id number] 07/22/18 15:45 DV Document 07/29/18 15:58 [id number] 07/29/18 16:05 07/22/18 07/29/18 15:43 15:58 Wound Center Nurse 2 2-left inferior moralez -Time 15:43 15:58 -Correct Patient Yes Yes -Correct Side, Site, Position Yes Yes -Correct Procedure Yes Yes -Procedure Performed Yes Yes -Type of Procedure Debridement Debridement -Clinical Debridement Subcutaneous Subcutaneous -Post Debridement Size (cm) - Length 1.3 1.0 -Post Debridement Size (cm) - Width 1.0 1.0 -Post Debridement Size (cm) - Depth 0.2 0.2 -Total Square Cm 1.30 1.00 -Wound/Ulcer Outcome Not Healed Not Healed -Ulcer Cleansing Rinsed/ Rinsed/ Irrigated with Irrigated with Saline Saline -Foul Odor after Cleansing No No -Bioengineered Tissue No No -Bleeding Controlled with Pressure Pressure -Treatment Response Procedure Procedure Tolerated Well Tolerated Well #1 Left superior moralez -Time 15:43 15:58 -Correct Patient Yes Yes -Correct Side, Site, Position Yes Yes -Correct Procedure Yes Yes -Procedure Performed Yes Yes -Type of Procedure Debridement Debridement -Clinical Debridement Subcutaneous Subcutaneous -Post Debridement Size (cm) - Length 2.2 2.0 -Post Debridement Size (cm) - Width 1.7 1.9 -Post Debridement Size (cm) - Depth 0.2 0.3 -Total Square Cm 3.74 3.80 -Wound/Ulcer Outcome Not Healed Not Healed -Ulcer Cleansing Rinsed/ Rinsed/ Irrigated with Irrigated with Saline Saline -Foul Odor after Cleansing No No -Bioengineered Tissue No No -Bleeding Controlled with Pressure Pressure -Treatment Response Procedure Procedure Tolerated Well Tolerated Well Pain Scale: 0-10 Numeric Is Patient Pain Free? Yes Yes Wound debrided: Left lower extremity wound Laterality: Left Type of Debridement: Excisional debridement Anesthesia Used: 5% Lidocaine Gel Depth: in the subcutaneous layer Percentage of wound debrided: 100 Instrument Used: 5mm curette Tissue Removed: Subcutaneous tissue and slough. Severity: Limited To Skin Breakdown Amount of bleeding with debridement: Mild Bleeding Controlled with: Pressure Patient tolerated procedure well Assessment/Plan Active Problems Non-healing wound of lower extremity (Acute) Venous insufficiency of left lower extremity (Chronic) Edema of both lower extremities (Chronic) Assessment: 1. Non-healing wound of lower extremity (Acute). 2. Venous insufficiency of left lower extremity (Chronic). 3. History of vein stripping (Chronic). 4. Edema of both lower extremities (Chronic) Plan: Subcutaneous debridement was performed today. Patient tolerated the procedure well. Patient's wounds consists of a cluster wound on his left anterior/lateral lower extremity. He has been having issues with the Aquacel silver sticking to his wound and being very uncomfortable. He has not been applying Adaptic then apply Aquacel silver daily to the wound. He is complaining of having a burning pain with dressing changes. We will put him on moistened Bhavna dressing daily. With his significant amount of lower extremity edema we will have him apply surepress to left lower extremity. He may wear his home compression on his right lower extremity. He has an appointment with Dr. Carrillo 08/13/18 Wound cultures showed Staphylococcus aureus and anaerobic cocci patient was started last week on doxycycline, will continue that and add Flagyl. Instructed to try to elevate his legs for 30 minutes at least 3 times a day. Wound cultures were obtained. Baseline blood work was ordered. Venous doppler studies showed Right popliteal vein incompetent. Left sapheno-femoral junction is incompetent. RGS segmentally incompetent. Left GSV has been partially harvested. Of segments remaing, the left GSV is incompetent in the left thigh and near the left ankle. Small saphenous veins are patent and incompetent bilaterally. A right accessory saphenous vein below the knee is incompetent. A left accessory saphenous vein in the thigh is incompetent. An incompetent signing agent vein is noted in the right calf proximal to the right medial malleolus. An incompetent signing agent vein is noted in the left calf proximal to the left medial malleolus. Patient educated on the importance of diet on wound healing and instructed to increase his protein intake. Patient verbalized understanding. We will have him follow-up in the wound center in 1 week. Code Visit [id number]: [id number] Greta subq tissue 20 sq cm/<
[2018-08-05 15:37] VITALS: BP 162/80; PULSE 80; RESP 16; TEMP 37.3
--- NOTE | 2018-08-05 16:50 | PCM.WC.PN ---
(1) Non-healing wound of lower extremity Status: Acute Current Visit: Yes Code(s): S81.809A - Unspecified open wound, unspecified lower leg, initial encounter (2) Venous insufficiency of left lower extremity Status: Chronic Current Visit: Yes Code(s): I87.2 - Venous insufficiency (chronic) (peripheral) (3) History of vein stripping Status: Chronic Current Visit: No Code(s): Z98.890 - Other specified postprocedural states (4) Edema of both lower extremities Status: Chronic Current Visit: Yes Code(s): R60.0 - Localized edema (5) Nerve pain Status: Acute Current Visit: Yes Code(s): M79.2 - Neuralgia and neuritis, unspecified Type of Wound Date of Service: 08/05/18 Chief Complaint: Nonhealing wound of left lower extremity wound left lower extremity caused by dog scratched March 2018. History of Wound: Patient obtained a left lower leg wound caused by a scratch from his dog 03/2018. He ended up hospitalized with cellulitis and had IV antibiotics. Since March he has been on Keflex for MSSA. He has been applying Neosporin to the site. Patient has a history of vein stripping 15 years ago of that left leg. He has a history of venous stasis. He has significant amount of edema of his lower extremities. Patient has compression stockings that he has not been wearing due to the significant amount of pain of his left lower extremity wound. Patient is obese. Denies smoking. Denies any recent fever chills nausea or vomiting. Progress of Wound: Improving. Subjective: Patient is complaining of burning pain in left lower leg around the area of his wound. It has been become increasingly more painful to do dressing changes. - Physical Exam Vital Signs Temp Pulse Resp BP 99.1 F 80 16 162/80 H 08/05/18 15:37 08/05/18 15:37 08/05/18 15:37 08/05/18 15:37 General: Alert, Oriented x3, Cooperative HEENT: Atraumatic Oral: Moist Mucosa Lungs: Normal air movement Extremities: Edema, Peripheral Pulses Normal Skin: Ulcer/ Wound - Left lower lateral leg Wound Measurements and Assessment WC - Nurse 1 - General Ulcer Measurement Start: 07/22/18 15:00 Freq: Status: Active Protocol: Activity Type Activity Date Activity User E-Sign Co-Sign Detail Recorded Client Recorded Date Recorded By Document 08/05/18 15:37 SCOTT [id number] 08/05/18 15:55 JS 08/05/18 15:37 Wound Center Nurse 1 [Ulcer Assessment] 2-left inferior moralez -Combined with other wound No -Current Size (cm) - Length 1.8 -Current Size (cm) - Width 1.0 -Current Size (cm) - Depth 0.2 -Total Square Cm 1.80 #1 Left superior moralez -Current Size (cm) - Length 2.6 -Current Size (cm) - Width 1.6 -Current Size (cm) - Depth 0.1 -Total Square Cm 4.16 -Date of Last Picture (Recall this 07/15/18 field) -Tunneling No -Undermining/Tunneling No -Circular Undermining No -Classification - Thickness Full Thickness without Exposed Support Structure -Change in Wound Grade/Stage No Query Text:If change please identify the Stage/Grade in the comment (ie. S2 G3) -Exudate Amt Small (1-33%) -Exudate Type Serosanguineous -Wound Margin Distinct, Outline Attached -Granulation Amt Small (1-33%) -Granulation Quality Pale Red -Slough/Fibrin Yes -Necrosis Amt None Present (0 %) -Necrotic Tissue Type Eschar -Structure Exposed N/A -Texture (Adali-wound Skin Appearance) No Abnormality -Moisture (Adali-wound Skin Appearance No Abnormality ) -Color (Adali-wound Skin Appearance) Hemosiderin Staining -Temperature (Adali-wound Skin No Abnormality Appearance) (Pt Warm) -Tenderness on Palpation (Adali-wound Yes Skin Appearance) -Ulcer Cleansing Rinsed/ Irrigated with Saline -Foul Odor after Cleansing No -Anesthetic Used 4% Lidocaine Solution 5% Lidocaine Gel [Edema Assessment] -Lower Limb Edema Present Yes -Left Calf (cm) 48.3 -Left Ankle (cm) 26.7 WC - Nurse 2 - General Ulcer CM Notes Start: 07/22/18 15:00 Freq: Status: Active Protocol: Activity Type Activity Date Activity User E-Sign Co-Sign Detail Recorded Client Recorded Date Recorded By Document 08/05/18 16:32 CORI [id number] 08/05/18 16:34 CORI 08/05/18 16:32 Wound Center Nurse 2 [Procedure/Treatment] 2-left inferior moralez -Time 16:33 -Correct Patient Yes -Correct Side, Site, Position Yes -Correct Procedure Yes -Procedure Performed Yes -Type of Procedure Debridement -Clinical Debridement Subcutaneous -Post Debridement Size (cm) - Length 1.3 -Post Debridement Size (cm) - Width 1.3 -Post Debridement Size (cm) - Depth 0.2 -Total Square Cm 1.69 -Wound/Ulcer Outcome Amputation -Ulcer Cleansing Rinsed/ Irrigated with Saline -Foul Odor after Cleansing No -Bioengineered Tissue No -Bleeding Controlled with Pressure -Treatment Response Procedure Tolerated Well #1 Left superior moralez -Time 16:34 -Correct Patient Yes -Correct Side, Site, Position Yes -Correct Procedure Yes -Procedure Performed Yes -Type of Procedure Debridement -Clinical Debridement Subcutaneous -Post Debridement Size (cm) - Length 2.7 -Post Debridement Size (cm) - Width 1.8 -Post Debridement Size (cm) - Depth 0.1 -Total Square Cm 4.86 -Wound/Ulcer Outcome Not Healed -Ulcer Cleansing Rinsed/ Irrigated with Saline -Foul Odor after Cleansing No -Bioengineered Tissue No -Bleeding Controlled with Pressure -Treatment Response Procedure Tolerated Well [See Physician Procedure note for Specifics] Pain Scale: 0-10 Numeric [Pain] -Is Patient Pain Free? Yes Musculoskeletal: No Tenderness to Palpation of Joints or Extremities Neurological: Neuro grossly intact Psych/Mental Status: Normal Affect, Appropriate Debridement Note Post-Debridement Measurements/Treatment WC - Nurse 2 - General Ulcer CM Notes Start: 07/22/18 15:00 Freq: Status: Active Protocol: Activity Type Activity Date Activity User E-Sign Co-Sign Detail Recorded Client Recorded Date Recorded By Document 07/22/18 15:43 DV [id number] 07/22/18 15:45 DV Document 07/29/18 15:58 [id number] 07/29/18 16:05 JF Document 08/05/18 16:32 [id number] 08/05/18 16:34 07/22/18 07/29/18 08/05/18 15:43 15:58 16:32 Wound Center Nurse 2 2-left inferior moralez -Time 15:43 15:58 16:33 -Correct Patient Yes Yes Yes -Correct Side, Site, Position Yes Yes Yes -Correct Procedure Yes Yes Yes -Procedure Performed Yes Yes Yes -Type of Procedure Debridement Debridement Debridement -Clinical Debridement Subcutaneous Subcutaneous Subcutaneous -Post Debridement Size (cm) - Length 1.3 1.0 1.3 -Post Debridement Size (cm) - Width 1.0 1.0 1.3 -Post Debridement Size (cm) - Depth 0.2 0.2 0.2 -Total Square Cm 1.30 1.00 1.69 -Wound/Ulcer Outcome Not Healed Not Healed Amputation -Ulcer Cleansing Rinsed/ Rinsed/ Rinsed/ Irrigated with Irrigated with Irrigated with Saline Saline Saline -Foul Odor after Cleansing No No No -Bioengineered Tissue No No No -Bleeding Controlled with Pressure Pressure Pressure -Treatment Response Procedure Procedure Procedure Tolerated Well Tolerated Well Tolerated Well #1 Left superior moralez -Time 15:43 15:58 16:34 -Correct Patient Yes Yes Yes -Correct Side, Site, Position Yes Yes Yes -Correct Procedure Yes Yes Yes -Procedure Performed Yes Yes Yes -Type of Procedure Debridement Debridement Debridement -Clinical Debridement Subcutaneous Subcutaneous Subcutaneous -Post Debridement Size (cm) - Length 2.2 2.0 2.7 -Post Debridement Size (cm) - Width 1.7 1.9 1.8 -Post Debridement Size (cm) - Depth 0.2 0.3 0.1 -Total Square Cm 3.74 3.80 4.86 -Wound/Ulcer Outcome Not Healed Not Healed Not Healed -Ulcer Cleansing Rinsed/ Rinsed/ Rinsed/ Irrigated with Irrigated with Irrigated with Saline Saline Saline -Foul Odor after Cleansing No No No -Bioengineered Tissue No No No -Bleeding Controlled with Pressure Pressure Pressure -Treatment Response Procedure Procedure Procedure Tolerated Well Tolerated Well Tolerated Well Pain Scale: 0-10 Numeric Is Patient Pain Free? Yes Yes Yes Wound debrided: Left lower leg Laterality: Left Type of Debridement: Excisional debridement Anesthesia Used: 4% Lidocaine Solution Depth: Down to and including healthy tissue, in the subcutaneous layer Percentage of wound debrided: 100 Instrument Used: 7mm curette Tissue Removed: Subcutaneous tissue and slough Severity: Limited To Skin Breakdown Amount of bleeding with debridement: Mild Bleeding Controlled with: Pressure Patient tolerated procedure well Assessment/Plan Active Problems Non-healing wound of lower extremity (Acute) Venous insufficiency of left lower extremity (Chronic) Edema of both lower extremities (Chronic) Nerve pain (Acute) Assessment: 1. Non-healing wound of lower extremity (Acute). 2. Venous insufficiency of left lower extremity (Chronic). 3. History of vein stripping (Chronic). 4. Edema of both lower extremities (Chronic) Plan: Subcutaneous debridement was performed today. Patient tolerated the procedure well. Patient's wounds consists of a cluster wound on his left anterior/lateral lower extremity. He had been having issues with the Aquacel silver sticking to his wound and being very uncomfortable. We changed him to moistened Bhavna dressing daily with no improvement in his burning pain or it sticking to his wound. He was not using the adaptic as prescribed. Will inquire about insurance approval for appligraf to help promote faster healing since he has not had much improvement over the past couple weeks. Will have him use aquacel silver with adaptic daily while we wait for insurance approval. He is complaining of having a burning pain with dressing changes and now through out the day. Will start him on Neurotin to help with the burning pain he has been experiencing that has not improved with tylenol or ibuprofen. With his significant amount of lower extremity edema we will had him apply surepress to left lower extremity but it he didn't like it so he quit wearing it. He is refusing 3M double wrap compression. Will apply Tubigrip today. He may wear his home compression on his right lower extremity. Stressed again the importance of compression. Instructed to try to elevate his legs for 30 minutes at least 3 times a day. He has an appointment with Dr. Carrillo 08/13/18. Wound cultures showed Staphylococcus aureus and anaerobic cocci. Patient completed his antibiotics of doxycycline and Flagyl. Baseline bloodwork was unremarkable. Pre-albumin 21.4 from 07/15/18. Venous doppler studies showed Right popliteal vein incompetent. Left sapheno-femoral junction is incompetent. RGS segmentally incompetent. Left GSV has been partially harvested. Of segments remaing, the left GSV is incompetent in the left thigh and near the left ankle. Small saphenous veins are patent and incompetent bilaterally. A right accessory saphenous vein below the knee is incompetent. A left accessory saphenous vein in the thigh is incompetent. 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 An incompetent regional refrigerated cdl truck driver vein is noted in the left calf proximal to the left medial malleolus. Patient educated on the importance of diet on wound healing and instructed to increase his protein intake. Patient verbalized understanding. We will have him follow-up in the wound center in 1 week.
[2018-08-12 16:08] VITALS: BP 136/81; PULSE 75; RESP 20; TEMP 37
--- NOTE | 2018-08-12 17:11 | PCM.WC.PN ---
(1) Non-healing wound of lower extremity Status: Acute Current Visit: Yes Code(s): S81.809A - Unspecified open wound, unspecified lower leg, initial encounter (2) Venous insufficiency of left lower extremity Status: Chronic Current Visit: Yes Code(s): I87.2 - Venous insufficiency (chronic) (peripheral) (3) History of vein stripping Status: Chronic Current Visit: No Code(s): Z98.890 - Other specified postprocedural states (4) Edema of both lower extremities Status: Chronic Current Visit: Yes Code(s): R60.0 - Localized edema (5) Nerve pain Status: Acute Current Visit: Yes Code(s): M79.2 - Neuralgia and neuritis, unspecified Type of Wound Date of Service: 08/12/18 Chief Complaint: Nonhealing wound of left lower extremity wound left lower extremity caused by dog scratched March 2018. History of Wound: Patient obtained a left lower leg wound caused by a scratch from his dog 03/2018. He ended up hospitalized with cellulitis and had IV antibiotics. Since March he has been on Keflex for MSSA. He has been applying Neosporin to the site. Patient has a history of vein stripping 15 years ago of that left leg. He has a history of venous stasis. He has significant amount of edema of his lower extremities. Patient has compression stockings that he has not been wearing due to the significant amount of pain of his left lower extremity wound. Patient is obese. Denies smoking. Denies any recent fever chills nausea or vomiting. Progress of Wound: Improving. - Physical Exam Vital Signs Temp Pulse Resp BP 98.6 F 75 20 H 136/81 H 08/12/18 16:08 08/12/18 16:08 08/12/18 16:08 08/12/18 16:08 General: Alert, Oriented x3, Cooperative HEENT: Atraumatic Lungs: Normal air movement Extremities: Capillary Refill Less than 3 Seconds, Edema, Peripheral Pulses Normal Skin: Ulcer/ Wound - Left lower leg wound Wound Measurements and Assessment WC - Nurse 1 - General Ulcer Measurement Start: 07/22/18 15:00 Freq: Status: Active Protocol: Activity Type Activity Date Activity User E-Sign Co-Sign Detail Recorded Client Recorded Date Recorded By Document 08/12/18 16:08 DL [id number] 08/12/18 16:18 DL 08/12/18 16:08 Wound Center Nurse 1 [Ulcer Assessment] 2-left inferior moralez -Current Size (cm) - Length 1.7 -Current Size (cm) - Width 0.8 -Current Size (cm) - Depth 0.1 -Total Square Cm 1.36 -Photo Taken No -Exudate Amt Small (1-33%) -Exudate Type Serosanguineous -Wound Margin Distinct, Outline Attached -Granulation Amt Medium (34-66%) -Granulation Quality Red -Necrosis Amt Medium (34-66%) -Necrotic Tissue Type Adherent Slough -Structure Exposed N/A -Texture (Adali-wound Skin Appearance) Localized Edema Scarring -Moisture (Adali-wound Skin Appearance No Abnormality ) -Color (Adali-wound Skin Appearance) Hemosiderin Staining Rubor -Temperature (Adali-wound Skin No Abnormality Appearance) (Pt Warm) -Tenderness on Palpation (Adali-wound Yes Skin Appearance) -Ulcer Cleansing Wound Cleanser -Foul Odor after Cleansing No -Anesthetic Used 4% Lidocaine Solution 5% Lidocaine Gel #1 Left superior moralez -Current Size (cm) - Length 2.5 -Current Size (cm) - Width 1.4 -Current Size (cm) - Depth 0.1 -Total Square Cm 3.50 -Photo Taken No -Exudate Amt Small (1-33%) -Exudate Type Serosanguineous -Wound Margin Distinct, Outline Attached -Granulation Amt Medium (34-66%) -Granulation Quality Red -Necrosis Amt Medium (34-66%) -Necrotic Tissue Type Adherent Slough -Structure Exposed N/A -Texture (Adali-wound Skin Appearance) Localized Edema Scarring -Moisture (Adali-wound Skin Appearance No Abnormality ) -Color (Adali-wound Skin Appearance) Erythema Hemosiderin Staining Rubor -Temperature (Adali-wound Skin No Abnormality Appearance) (Pt Warm) -Tenderness on Palpation (Adali-wound Yes Skin Appearance) -Ulcer Cleansing Rinsed/ Irrigated with Saline -Foul Odor after Cleansing No -Anesthetic Used 4% Lidocaine Solution 5% Lidocaine Gel [Edema Assessment] -Left Calf (cm) 47 -Left Ankle (cm) 28.5 WC - Nurse 2 - General Ulcer CM Notes Start: 07/22/18 15:00 Freq: Status: Active Protocol: Activity Type Activity Date Activity User E-Sign Co-Sign Detail Recorded Client Recorded Date Recorded By Document 08/12/18 16:45 [id number] 08/12/18 16:51 08/12/18 16:45 Wound Center Nurse 2 [Procedure/Treatment] 2-left inferior moralez -Time 16:46 -Correct Patient Yes -Correct Side, Site, Position Yes -Correct Procedure Yes -Procedure Performed Yes -Type of Procedure Debridement -Clinical Debridement Subcutaneous -Post Debridement Size (cm) - Length 1.3 -Post Debridement Size (cm) - Width 1.3 -Post Debridement Size (cm) - Depth 0.2 -Total Square Cm 1.69 -Wound/Ulcer Outcome Not Healed -Ulcer Cleansing Rinsed/ Irrigated with Saline -Foul Odor after Cleansing No -Bioengineered Tissue No -Bleeding Controlled with Pressure -Treatment Response Procedure Tolerated Well #1 Left superior moralez -Time 16:46 -Correct Patient Yes -Correct Side, Site, Position Yes -Correct Procedure Yes -Procedure Performed Yes -Type of Procedure Debridement -Clinical Debridement Subcutaneous -Post Debridement Size (cm) - Length 2.3 -Post Debridement Size (cm) - Width 1.8 -Post Debridement Size (cm) - Depth 0.2 -Total Square Cm 4.14 -Wound/Ulcer Outcome Not Healed -Ulcer Cleansing Rinsed/ Irrigated with Saline -Foul Odor after Cleansing No -Bioengineered Tissue No -Bleeding Controlled with Pressure -Treatment Response Procedure Tolerated Well [See Physician Procedure note for Specifics] Pain Scale: 0-10 Numeric [Pain] -Is Patient Pain Free? Yes Musculoskeletal: No Tenderness to Palpation of Joints or Extremities Neurological: Neuro grossly intact Psych/Mental Status: Normal Affect, Appropriate Debridement Note Post-Debridement Measurements/Treatment WC - Nurse 2 - General Ulcer CM Notes Start: 07/22/18 15:00 Freq: Status: Active Protocol: Activity Type Activity Date Activity User E-Sign Co-Sign Detail Recorded Client Recorded Date Recorded By Document 07/22/18 15:43 DV [id number] 07/22/18 15:45 DV Document 07/29/18 15:58 JF [id number] 07/29/18 16:05 JF Document 08/05/18 16:32 JF [id number] 08/05/18 16:34 JF Document 08/12/18 16:45 [id number] 08/12/18 16:51 JF 1007/29/18 08/05/18 15:43 15:58 16:32 Wound Center Nurse 2 2-left inferior moralez -Time 15:43 15:58 16:33 -Correct Patient Yes Yes Yes -Correct Side, Site, Position Yes Yes Yes -Correct Procedure Yes Yes Yes -Procedure Performed Yes Yes Yes -Type of Procedure Debridement Debridement Debridement -Clinical Debridement Subcutaneous Subcutaneous Subcutaneous -Post Debridement Size (cm) - Length 1.3 1.0 1.3 -Post Debridement Size (cm) - Width 1.0 1.0 1.3 -Post Debridement Size (cm) - Depth 0.2 0.2 0.2 -Total Square Cm 1.30 1.00 1.69 -Wound/Ulcer Outcome Not Healed Not Healed Amputation -Ulcer Cleansing Rinsed/ Rinsed/ Rinsed/ Irrigated with Irrigated with Irrigated with Saline Saline Saline -Foul Odor after Cleansing No No No -Bioengineered Tissue No No No -Bleeding Controlled with Pressure Pressure Pressure -Treatment Response Procedure Procedure Procedure Tolerated Well Tolerated Well Tolerated Well #1 Left superior moralez -Time 15:43 15:58 16:34 -Correct Patient Yes Yes Yes -Correct Side, Site, Position Yes Yes Yes -Correct Procedure Yes Yes Yes -Procedure Performed Yes Yes Yes -Type of Procedure Debridement Debridement Debridement -Clinical Debridement Subcutaneous Subcutaneous Subcutaneous -Post Debridement Size (cm) - Length 2.2 2.0 2.7 -Post Debridement Size (cm) - Width 1.7 1.9 1.8 -Post Debridement Size (cm) - Depth 0.2 0.3 0.1 -Total Square Cm 3.74 3.80 4.86 -Wound/Ulcer Outcome Not Healed Not Healed Not Healed -Ulcer Cleansing Rinsed/ Rinsed/ Rinsed/ Irrigated with Irrigated with Irrigated with Saline Saline Saline -Foul Odor after Cleansing No No No -Bioengineered Tissue No No No -Bleeding Controlled with Pressure Pressure Pressure -Treatment Response Procedure Procedure Procedure Tolerated Well Tolerated Well Tolerated Well Pain Scale: 0-10 Numeric Is Patient Pain Free? Yes Yes Yes 08/12/18 16:45 Wound Center Nurse 2 2-left inferior moralez -Time 16:46 -Correct Patient Yes -Correct Side, Site, Position Yes -Correct Procedure Yes -Procedure Performed Yes -Type of Procedure Debridement -Clinical Debridement Subcutaneous -Post Debridement Size (cm) - Length 1.3 -Post Debridement Size (cm) - Width 1.3 -Post Debridement Size (cm) - Depth 0.2 -Total Square Cm 1.69 -Wound/Ulcer Outcome Not Healed -Ulcer Cleansing Rinsed/ Irrigated with Saline -Foul Odor after Cleansing No -Bioengineered Tissue No -Bleeding Controlled with Pressure -Treatment Response Procedure Tolerated Well #1 Left superior moralez -Time 16:46 -Correct Patient Yes -Correct Side, Site, Position Yes -Correct Procedure Yes -Procedure Performed Yes -Type of Procedure Debridement -Clinical Debridement Subcutaneous -Post Debridement Size (cm) - Length 2.3 -Post Debridement Size (cm) - Width 1.8 -Post Debridement Size (cm) - Depth 0.2 -Total Square Cm 4.14 -Wound/Ulcer Outcome Not Healed -Ulcer Cleansing Rinsed/ Irrigated with Saline -Foul Odor after Cleansing No -Bioengineered Tissue No -Bleeding Controlled with Pressure -Treatment Response Procedure Tolerated Well Pain Scale: 0-10 Numeric Is Patient Pain Free? Yes Wound debrided: Left lower leg Laterality: Left Type of Debridement: Excisional debridement Anesthesia Used: 5% Lidocaine Gel Depth: Down to and including healthy tissue, in the subcutaneous layer Percentage of wound debrided: 100 Instrument Used: 7mm curette Tissue Removed: Subcutaneous tissue and slough Severity: Fat Layer Exposed Amount of bleeding with debridement: Mild Bleeding Controlled with: Pressure Patient tolerated procedure well Assessment/Plan Active Problems Non-healing wound of lower extremity (Acute) Venous insufficiency of left lower extremity (Chronic) Edema of both lower extremities (Chronic) Nerve pain (Acute) Assessment: 1. Non-healing wound of lower extremity (Acute). 2. Venous insufficiency of left lower extremity (Chronic). 3. History of vein stripping (Chronic). 4. Edema of both lower extremities (Chronic) Plan: Subcutaneous debridement was performed today. Patient tolerated the procedure well. Patient's wounds consists of a cluster wound on his left anterior/lateral lower extremity. He was approved for appligraf but his expense out of pocket is more than he would like to spend. Will have him continue aquacel silver with adaptic daily. He has started the Neurotin and is now taking it twice per day. He is not sure if he has started to notice a difference in his burning pain. Will apply Tubigrip today for compression (since he does not like any other compression). He may wear his home compression on his right lower extremity. Stressed again the importance of compression. Instructed to try to elevate his legs for 30 minutes at least 3 times a day. He has an appointment with Dr. Carrillo 08/13/18. Wound cultures showed Staphylococcus aureus and anaerobic cocci. Patient completed his antibiotics of doxycycline and Flagyl. Baseline bloodwork was unremarkable. Pre-albumin 21.4 from 07/15/18. Venous doppler studies showed Right popliteal vein incompetent. Left sapheno-femoral junction is incompetent. RGS segmentally incompetent. Left GSV has been partially harvested. Of segments remaing, the left GSV is incompetent in the left thigh and near the left ankle. Small saphenous veins are patent and incompetent bilaterally. A right accessory saphenous vein below the knee is incompetent. A left accessory saphenous vein in the thigh is incompetent. An incompetent lead enterprise architect vein is noted in the right calf proximal to the right medial malleolus. An incompetent lead enterprise architect vein is noted in the left calf proximal to the left medial malleolus. Patient educated on the importance of diet on wound healing and instructed to increase his protein intake. Patient verbalized understanding. We will have him follow-up in the wound center in 2 weeks. Code Visit [id number]: [id number] Greta subq tissue 20 sq cm/<
--- NOTE | 2018-08-14 13:21 | PN.PCM_ITS ---
(1) Non-healing wound of lower extremity Status: Acute Current Visit: Yes Code(s): S81.809A - Unspecified open wound, unspecified lower leg, initial encounter (2) Venous insufficiency of left lower extremity Status: Chronic Current Visit: Yes Code(s): I87.2 - Venous insufficiency (chronic) (peripheral) (3) History of vein stripping Status: Chronic Current Visit: No Code(s): Z98.890 - Other specified postprocedural states (4) Edema of both lower extremities Status: Chronic Current Visit: Yes Code(s): R60.0 - Localized edema (5) Nerve pain Status: Acute Current Visit: Yes Code(s): M79.2 - Neuralgia and neuritis, unspecified Type of Wound Date of Service: 08/12/18 Chief Complaint: Nonhealing wound of left lower extremity wound left lower extremity caused by dog scratched March 2018. History of Wound: Patient obtained a left lower leg wound caused by a scratch from his dog 03/2018. He ended up hospitalized with cellulitis and had IV antibiotics. Since March he has been on Keflex for MSSA. He has been applying Neosporin to the site. Patient has a history of vein stripping 15 years ago of that left leg. He has a history of venous stasis. He has significant amount of edema of his lower extremities. Patient has compression stockings that he has not been wearing due to the significant amount of pain of his left lower extremity wound. Patient is obese. Denies smoking. Denies any recent fever chills nausea or vomiting. Progress of Wound: Improving. - Physical Exam Vital Signs Temp Pulse Resp BP 98.6 F 75 20 H 136/81 H 08/12/18 16:08 08/12/18 16:08 08/12/18 16:08 08/12/18 16:08 General: Alert, Oriented x3, Cooperative HEENT: Atraumatic Lungs: Normal air movement Extremities: Capillary Refill Less than 3 Seconds, Edema, Peripheral Pulses Normal Skin: Ulcer/ Wound - Left lower leg wound Wound Measurements and Assessment WC - Nurse 1 - General Ulcer Measurement Start: 07/22/18 15:00 Freq: Status: Active Protocol: Activity Type Activity Date Activity User E-Sign Co-Sign Detail Recorded Client Recorded Date Recorded By Document 08/12/18 16:08 DL [id number] 08/12/18 16:18 DL 08/12/18 16:08 Wound Center Nurse 1 [Ulcer Assessment] 2-left inferior moralez -Current Size (cm) - Length 1.7 -Current Size (cm) - Width 0.8 -Current Size (cm) - Depth 0.1 -Total Square Cm 1.36 -Photo Taken No -Exudate Amt Small (1-33%) -Exudate Type Serosanguineous -Wound Margin Distinct, Outline Attached -Granulation Amt Medium (34-66%) -Granulation Quality Red -Necrosis Amt Medium (34-66%) -Necrotic Tissue Type Adherent Slough -Structure Exposed N/A -Texture (Adali-wound Skin Appearance) Localized Edema Scarring -Moisture (Adali-wound Skin Appearance No Abnormality ) -Color (Adali-wound Skin Appearance) Hemosiderin Staining Rubor -Temperature (Adali-wound Skin No Abnormality Appearance) (Pt Warm) -Tenderness on Palpation (Adali-wound Yes Skin Appearance) -Ulcer Cleansing Wound Cleanser -Foul Odor after Cleansing No -Anesthetic Used 4% Lidocaine Solution 5% Lidocaine Gel #1 Left superior moralez -Current Size (cm) - Length 2.5 -Current Size (cm) - Width 1.4 -Current Size (cm) - Depth 0.1 -Total Square Cm 3.50 -Photo Taken No -Exudate Amt Small (1-33%) -Exudate Type Serosanguineous -Wound Margin Distinct, Outline Attached -Granulation Amt Medium (34-66%) -Granulation Quality Red -Necrosis Amt Medium (34-66%) -Necrotic Tissue Type Adherent Slough -Structure Exposed N/A -Texture (Adali-wound Skin Appearance) Localized Edema Scarring -Moisture (Adali-wound Skin Appearance No Abnormality ) -Color (Adali-wound Skin Appearance) Erythema Hemosiderin Staining Rubor -Temperature (Adali-wound Skin No Abnormality Appearance) (Pt Warm) -Tenderness on Palpation (Adali-wound Yes Skin Appearance) -Ulcer Cleansing Rinsed/ Irrigated with Saline -Foul Odor after Cleansing No -Anesthetic Used 4% Lidocaine Solution 5% Lidocaine Gel [Edema Assessment] -Left Calf (cm) 47 -Left Ankle (cm) 28.5 WC - Nurse 2 - General Ulcer CM Notes Start: 07/22/18 15:00 Freq: Status: Active Protocol: Activity Type Activity Date Activity User E-Sign Co-Sign Detail Recorded Client Recorded Date Recorded By Document 08/12/18 16:45 [id number] 08/12/18 16:51 08/12/18 16:45 Wound Center Nurse 2 [Procedure/Treatment] 2-left inferior moralez -Time 16:46 -Correct Patient Yes -Correct Side, Site, Position Yes -Correct Procedure Yes -Procedure Performed Yes -Type of Procedure Debridement -Clinical Debridement Subcutaneous -Post Debridement Size (cm) - Length 1.3 -Post Debridement Size (cm) - Width 1.3 -Post Debridement Size (cm) - Depth 0.2 -Total Square Cm 1.69 -Wound/Ulcer Outcome Not Healed -Ulcer Cleansing Rinsed/ Irrigated with Saline -Foul Odor after Cleansing No -Bioengineered Tissue No -Bleeding Controlled with Pressure -Treatment Response Procedure Tolerated Well #1 Left superior moralez -Time 16:46 -Correct Patient Yes -Correct Side, Site, Position Yes -Correct Procedure Yes -Procedure Performed Yes -Type of Procedure Debridement -Clinical Debridement Subcutaneous -Post Debridement Size (cm) - Length 2.3 -Post Debridement Size (cm) - Width 1.8 -Post Debridement Size (cm) - Depth 0.2 -Total Square Cm 4.14 -Wound/Ulcer Outcome Not Healed -Ulcer Cleansing Rinsed/ Irrigated with Saline -Foul Odor after Cleansing No -Bioengineered Tissue No -Bleeding Controlled with Pressure -Treatment Response Procedure Tolerated Well [See Physician Procedure note for Specifics] Pain Scale: 0-10 Numeric [Pain] -Is Patient Pain Free? Yes Musculoskeletal: No Tenderness to Palpation of Joints or Extremities Neurological: Neuro grossly intact Psych/Mental Status: Normal Affect, Appropriate Debridement Note Post-Debridement Measurements/Treatment WC - Nurse 2 - General Ulcer CM Notes Start: 07/22/18 15:00 Freq: Status: Active Protocol: Activity Type Activity Date Activity User E-Sign Co-Sign Detail Recorded Client Recorded Date Recorded By Document 07/22/18 15:43 DV [id number] 07/22/18 15:45 DV Document 07/29/18 15:58 JF [id number] 07/29/18 16:05 JF Document 08/05/18 16:32 JF [id number] 08/05/18 16:34 JF Document 08/12/18 16:45 [id number] 08/12/18 16:51 JF 1007/29/18 08/05/18 15:43 15:58 16:32 Wound Center Nurse 2 2-left inferior moralez -Time 15:43 15:58 16:33 -Correct Patient Yes Yes Yes -Correct Side, Site, Position Yes Yes Yes -Correct Procedure Yes Yes Yes -Procedure Performed Yes Yes Yes -Type of Procedure Debridement Debridement Debridement -Clinical Debridement Subcutaneous Subcutaneous Subcutaneous -Post Debridement Size (cm) - Length 1.3 1.0 1.3 -Post Debridement Size (cm) - Width 1.0 1.0 1.3 -Post Debridement Size (cm) - Depth 0.2 0.2 0.2 -Total Square Cm 1.30 1.00 1.69 -Wound/Ulcer Outcome Not Healed Not Healed Amputation -Ulcer Cleansing Rinsed/ Rinsed/ Rinsed/ Irrigated with Irrigated with Irrigated with Saline Saline Saline -Foul Odor after Cleansing No No No -Bioengineered Tissue No No No -Bleeding Controlled with Pressure Pressure Pressure -Treatment Response Procedure Procedure Procedure Tolerated Well Tolerated Well Tolerated Well #1 Left superior moralez -Time 15:43 15:58 16:34 -Correct Patient Yes Yes Yes -Correct Side, Site, Position Yes Yes Yes -Correct Procedure Yes Yes Yes -Procedure Performed Yes Yes Yes -Type of Procedure Debridement Debridement Debridement -Clinical Debridement Subcutaneous Subcutaneous Subcutaneous -Post Debridement Size (cm) - Length 2.2 2.0 2.7 -Post Debridement Size (cm) - Width 1.7 1.9 1.8 -Post Debridement Size (cm) - Depth 0.2 0.3 0.1 -Total Square Cm 3.74 3.80 4.86 -Wound/Ulcer Outcome Not Healed Not Healed Not Healed -Ulcer Cleansing Rinsed/ Rinsed/ Rinsed/ Irrigated with Irrigated with Irrigated with Saline Saline Saline -Foul Odor after Cleansing No No No -Bioengineered Tissue No No No -Bleeding Controlled with Pressure Pressure Pressure -Treatment Response Procedure Procedure Procedure Tolerated Well Tolerated Well Tolerated Well Pain Scale: 0-10 Numeric Is Patient Pain Free? Yes Yes Yes 08/12/18 16:45 Wound Center Nurse 2 2-left inferior moralez -Time 16:46 -Correct Patient Yes -Correct Side, Site, Position Yes -Correct Procedure Yes -Procedure Performed Yes -Type of Procedure Debridement -Clinical Debridement Subcutaneous -Post Debridement Size (cm) - Length 1.3 -Post Debridement Size (cm) - Width 1.3 -Post Debridement Size (cm) - Depth 0.2 -Total Square Cm 1.69 -Wound/Ulcer Outcome Not Healed -Ulcer Cleansing Rinsed/ Irrigated with Saline -Foul Odor after Cleansing No -Bioengineered Tissue No -Bleeding Controlled with Pressure -Treatment Response Procedure Tolerated Well #1 Left superior moralez -Time 16:46 -Correct Patient Yes -Correct Side, Site, Position Yes -Correct Procedure Yes -Procedure Performed Yes -Type of Procedure Debridement -Clinical Debridement Subcutaneous -Post Debridement Size (cm) - Length 2.3 -Post Debridement Size (cm) - Width 1.8 -Post Debridement Size (cm) - Depth 0.2 -Total Square Cm 4.14 -Wound/Ulcer Outcome Not Healed -Ulcer Cleansing Rinsed/ Irrigated with Saline -Foul Odor after Cleansing No -Bioengineered Tissue No -Bleeding Controlled with Pressure -Treatment Response Procedure Tolerated Well Pain Scale: 0-10 Numeric Is Patient Pain Free? Yes Wound debrided: Left lower leg Laterality: Left Type of Debridement: Excisional debridement Anesthesia Used: 5% Lidocaine Gel Depth: Down to and including healthy tissue, in the subcutaneous layer Percentage of wound debrided: 100 Instrument Used: 7mm curette Tissue Removed: Subcutaneous tissue and slough Severity: Fat Layer Exposed Amount of bleeding with debridement: Mild Bleeding Controlled with: Pressure Patient tolerated procedure well Assessment/Plan Active Problems Non-healing wound of lower extremity (Acute) Venous insufficiency of left lower extremity (Chronic) Edema of both lower extremities (Chronic) Nerve pain (Acute) Assessment: 1. Non-healing wound of lower extremity (Acute). 2. Venous insufficiency of left lower extremity (Chronic). 3. History of vein stripping (Chronic). 4. Edema of both lower extremities (Chronic) Plan: Subcutaneous debridement was performed today. Patient tolerated the procedure well. Patient's wounds consists of a cluster wound on his left anterior/lateral lower extremity. He was approved for appligraf but his expense out of pocket is more than he would like to spend. Will have him continue aquacel silver with adaptic daily. He has started the Neurotin and is now taking it twice per day. He is not sure if he has started to notice a difference in his burning pain. Will apply Tubigrip today for compression (since he does not like any other compression). He may wear his home compression on his right lower extremity. Stressed again the importance of compression. Instructed to try to elevate his legs for 30 minutes at least 3 times a day. He has an appointment with Dr. Carrillo 08/13/18. Wound cultures showed Staphylococcus aureus and anaerobic cocci. Patient completed his antibiotics of doxycycline and Flagyl. Baseline bloodwork was unremarkable. Pre-albumin 21.4 from 07/15/18. Venous doppler studies showed Right popliteal vein incompetent. Left sapheno-femoral junction is incompetent. RGS segmentally incompetent. Left GSV has been partially harvested. Of segments remaing, the left GSV is incompetent in the left thigh and near the left ankle. Small saphenous veins are patent and incompetent bilaterally. A right accessory saphen ous vein below the knee is incompetent. A left accessory saphenous vein in the thigh is incompetent. An incompetent stable attendant vein is noted in the right calf proximal to the right medial malleolus. An incompetent stable attendant vein is noted in the left calf proximal to the left medial malleolus. Patient educated on the importance of diet on wound healing and instructed to increase his protein intake. Patient verbalized understanding. We will have him follow-up in the wound center in 2 weeks. Code Visit 111xxx-113xx: [id number] Greta subq tissue 20 sq cm/<
== END 2018-08-20 23:59 ==
LOC: WC 15:30
PROVIDERS: Referring Provider Nurse Practitioner Family; Visit Provider Nurse Practitioner Family
DX: I87.2 Venous insufficiency (chronic) (peripheral) (principal); R60.0 Localized edema; S80.812A Abrasion, left lower leg, initial encounter; W45.8XXA Other foreign body or object entering through skin, initial encounter
CPT/HCPCS: 11042; 93970

== ENCOUNTER 2018-09-16 15:30 | Outpatient (RCR) | payer BC, SELFPAY ==
[2018-08-21 01:44] VITALS: BP 136/81; PULSE 75; RESP 20; TEMP 37
[2018-08-26 15:49] VITALS: BP 153/84; PULSE 88; RESP 16; TEMP 36.7
--- NOTE | 2018-08-27 08:21 | PCM.WC.PN ---
(1) Non-healing wound of lower extremity Status: Chronic Current Visit: Yes Code(s): S81.809A - Unspecified open wound, unspecified lower leg, initial encounter (2) Venous insufficiency of left lower extremity Status: Chronic Current Visit: Yes Code(s): I87.2 - Venous insufficiency (chronic) (peripheral) (3) History of vein stripping Status: Chronic Current Visit: Yes Code(s): Z98.890 - Other specified postprocedural states (4) Edema of both lower extremities Status: Chronic Current Visit: Yes Code(s): R60.0 - Localized edema (5) Nerve pain Status: Acute Current Visit: Yes Code(s): M79.2 - Neuralgia and neuritis, unspecified Type of Wound Date of Service: 08/26/18 Chief Complaint: Nonhealing wound of left lower extremity wound left lower extremity caused by dog scratched March 2018. History of Wound: Patient obtained a left lower leg wound caused by a scratch from his dog 03/2018. He ended up hospitalized with cellulitis and had IV antibiotics. Since March he has been on Keflex for MSSA. He has been applying Neosporin to the site. Patient has a history of vein stripping 15 years ago of that left leg. He has a history of venous stasis. He has significant amount of edema of his lower extremities. Patient has compression stockings that he has not been wearing due to the significant amount of pain of his left lower extremity wound. Patient is obese. Denies smoking. Patient is on his feet standing for 10-15 hours per day. Denies any recent fever chills nausea or vomiting. Progress of Wound: Improving. - Physical Exam Vital Signs Temp Pulse Resp BP 98.0 F 88 16 153/84 H 08/26/18 15:49 08/26/18 15:49 08/26/18 15:49 08/26/18 15:49 General: Alert, Oriented x3, Cooperative HEENT: Atraumatic Cardiovascular: Regular rate Extremities: Diminished Peripheral Pulses, Edema Skin: Ulcer/ Wound - Left lower leg opened area Wound Measurements and Assessment WC - Nurse 1 - General Ulcer Measurement Start: 08/26/18 15:49 Freq: Status: Active Protocol: Activity Type Activity Date Activity User E-Sign Co-Sign Detail Recorded Client Recorded Date Recorded By Document 08/26/18 15:49 [id number] 08/26/18 15:52 08/26/18 15:49 Wound Center Nurse 1 [Ulcer Assessment] 2-left inferior moralez -Combined with other wound No -Current Size (cm) - Length 1.4 -Current Size (cm) - Width 1.1 -Current Size (cm) - Depth 0.1 -Total Square Cm 1.54 -Photo Taken No -Epithelialization Medium 34-66% -Tunneling No -Undermining/Tunneling No -Circular Undermining No -Exudate Amt Small (1-33%) -Exudate Type Serosanguineous -Wound Margin Flat & Intact -Granulation Amt Medium (34-66%) -Granulation Quality Red -Slough/Fibrin Yes -Necrosis Amt Small (1-33%) -Necrotic Tissue Type Adherent Slough -Structure Exposed N/A -Texture (Adali-wound Skin Appearance) Assessed Localized Edema -Moisture (Adali-wound Skin Appearance Assessed ) Dry/Scaly -Color (Adali-wound Skin Appearance) Assessed Hemosiderin Staining -Temperature (Adali-wound Skin No Abnormality Appearance) (Pt Warm) -Tenderness on Palpation (Adali-wound No Skin Appearance) -Ulcer Cleansing Rinsed/ Irrigated with Saline -Foul Odor after Cleansing No -Anesthetic Used 4% Lidocaine Solution #1 Left superior moralez -Combined with other wound No -Current Size (cm) - Length 2.6 -Current Size (cm) - Width 1.6 -Current Size (cm) - Depth 0.1 -Total Square Cm 4.16 -Photo Taken No -Epithelialization Medium 34-66% -Tunneling No -Undermining/Tunneling No -Circular Undermining No -Exudate Amt Medium (34-66%) -Exudate Type Serosanguineous -Wound Margin Flat & Intact -Granulation Amt Medium (34-66%) -Granulation Quality Red -Slough/Fibrin Yes -Necrosis Amt Small (1-33%) -Necrotic Tissue Type Adherent Slough -Structure Exposed N/A -Texture (Adali-wound Skin Appearance) Assessed Localized Edema -Moisture (Adali-wound Skin Appearance Assessed ) Dry/Scaly -Color (Adali-wound Skin Appearance) Assessed Hemosiderin Staining -Temperature (Adali-wound Skin No Abnormality Appearance) (Pt Warm) -Tenderness on Palpation (Adali-wound No Skin Appearance) -Ulcer Cleansing Rinsed/ Irrigated with Saline -Foul Odor after Cleansing No -Anesthetic Used 4% Lidocaine Solution [Edema Assessment] -Lower Limb Edema Present Yes -Left Calf (cm) 49.0 -Left Ankle (cm) 29.0 SILVANO - Nurse 2 - General Ulcer CM Notes Start: 08/26/18 15:49 Freq: Status: Active Protocol: Activity Type Activity Date Activity User E-Sign Co-Sign Detail Recorded Client Recorded Date Recorded By Document 08/26/18 16:23 [id number] [id number] 08/26/18 16:28 08/26/18 16:23 Wound Center Nurse 2 [Procedure/Treatment] 2-left inferior moralez -Time 16:25 -Correct Patient Yes -Correct Side, Site, Position Yes -Correct Procedure Yes -Procedure Performed Yes -Type of Procedure Debridement -Clinical Debridement Subcutaneous -Post Debridement Size (cm) - Length 1.3 -Post Debridement Size (cm) - Width 1.7 -Post Debridement Size (cm) - Depth 0.2 -Total Square Cm 2.21 -Wound/Ulcer Outcome Not Healed -Ulcer Cleansing Rinsed/ Irrigated with Saline -Foul Odor after Cleansing No -Bioengineered Tissue No -Bleeding Controlled with Pressure -Treatment Response Procedure Tolerated Well #1 Left superior moralez -Time 16:25 -Correct Patient Yes -Correct Side, Site, Position Yes -Correct Procedure Yes -Procedure Performed Yes -Type of Procedure Debridement -Clinical Debridement Subcutaneous -Post Debridement Size (cm) - Length 2.5 -Post Debridement Size (cm) - Width 1.7 -Post Debridement Size (cm) - Depth 0.2 -Total Square Cm 4.25 -Wound/Ulcer Outcome Not Healed -Ulcer Cleansing Rinsed/ Irrigated with Saline -Foul Odor after Cleansing No -Bioengineered Tissue No -Bleeding Controlled with Pressure -Treatment Response Procedure Tolerated Well [See Physician Procedure note for Specifics] Pain Scale: 0-10 Numeric [Pain] -Is Patient Pain Free? Yes Musculoskeletal: No Tenderness to Palpation of Joints or Extremities Neurological: Neuro grossly intact Psych/Mental Status: Normal Affect, Appropriate Debridement Note Post-Debridement Measurements/Treatment SILVANO - Nurse 2 - General Ulcer CM Notes Start: 08/26/18 15:49 Freq: Status: Active Protocol: Activity Type Activity Date Activity User E-Sign Co-Sign Detail Recorded Client Recorded Date Recorded By Document 08/26/18 16:23 [id number] 08/26/18 16:28 08/26/18 16:23 Wound Center Nurse 2 2-left inferior moralez -Time 16:25 -Correct Patient Yes -Correct Side, Site, Position Yes -Correct Procedure Yes -Procedure Performed Yes -Type of Procedure Debridement -Clinical Debridement Subcutaneous -Post Debridement Size (cm) - Length 1.3 -Post Debridement Size (cm) - Width 1.7 -Post Debridement Size (cm) - Depth 0.2 -Total Square Cm 2.21 -Wound/Ulcer Outcome Not Healed -Ulcer Cleansing Rinsed/ Irrigated with Saline -Foul Odor after Cleansing No -Bioengineered Tissue No -Bleeding Controlled with Pressure -Treatment Response Procedure Tolerated Well #1 Left superior moralez -Time 16:25 -Correct Patient Yes -Correct Side, Site, Position Yes -Correct Procedure Yes -Procedure Performed Yes -Type of Procedure Debridement -Clinical Debridement Subcutaneous -Post Debridement Size (cm) - Length 2.5 -Post Debridement Size (cm) - Width 1.7 -Post Debridement Size (cm) - Depth 0.2 -Total Square Cm 4.25 -Wound/Ulcer Outcome Not Healed -Ulcer Cleansing Rinsed/ Irrigated with Saline -Foul Odor after Cleansing No -Bioengineered Tissue No -Bleeding Controlled with Pressure -Treatment Response Procedure Tolerated Well Pain Scale: 0-10 Numeric Is Patient Pain Free? Yes Wound debrided: left lower leg Laterality: Left Type of Debridement: Excisional debridement Anesthesia Used: 5% Lidocaine Gel Depth: Down to and including healthy tissue, in the subcutaneous layer Percentage of wound debrided: 100 Instrument Used: 3mm curette Tissue Removed: Subcutaneous tissue and slough Severity: Fat Layer Exposed Amount of bleeding with debridement: Mild Bleeding Controlled with: Pressure Patient tolerated procedure well Assessment/Plan Active Problems Non-healing wound of lower extremity (Chronic) Venous insufficiency of left lower extremity (Chronic) History of vein stripping (Chronic) Edema of both lower extremities (Chronic) Nerve pain (Acute) Assessment: 1. Non-healing wound of lower extremity (Acute). 2. Venous insufficiency of left lower extremity (Chronic). 3. History of vein stripping (Chronic). 4. Edema of both lower extremities (Chronic) Plan: Subcutaneous debridement was performed today. Patient tolerated the procedure well. Patient's wounds consists of a cluster wound on his left anterior/lateral lower extremity. He continues to have a significant amount of bioburden. He would benefit from a product that would help reduce that between visits. Since the appligraf was too expensive, will apply for Santyl to see if that is more cost effective for him. Will have him continue aquacel silver with adaptic daily until we hear if he qualifies and can afford Santyl. He has started the Neurotin and is now taking it twice per day. He is not sure if he has started to notice a difference in his burning pain. Will apply Tubigrip today for compression (since he does not like any other compression). He may wear his home compression on his right lower extremity. Stressed again the importance of compression. Instructed to try to elevate his legs for 30 minutes at least 3 times a day. He had his appointment with Dr. Carrillo 08/13/18. He states that Dr. Carrillo would like his wound improved before doing anything else. He will follow up with Dr. Carrillo in 3 months. Wound cultures showed Staphylococcus aureus and anaerobic cocci. Patient completed his antibiotics of doxycycline and Flagyl. Baseline bloodwork was unremarkable. Pre-albumin 21.4 from 07/15/18. Venous doppler studies showed Right popliteal vein incompetent. Left sapheno-femoral junction is incompetent. RGS segmentally incompetent. Left GSV has been partially harvested. Of segments remaing, the left GSV is incompetent in the left thigh and near the left ankle. Small saphenous veins are patent and incompetent bilaterally. A right accessory saphenous vein below the knee is incompetent. A left accessory saphenous vein in the thigh is incompetent. An incompetent collector of aquarium specimens vein is noted in the right calf proximal to the right medial malleolus. An incompetent collector of aquarium specimens vein is noted in the left calf proximal to the left medial malleolus. Patient educated on the importance of diet on wound healing and instructed to increase his protein intake. Patient verbalized understanding. We will have him follow-up in the wound center in 1 week. Code Visit 111xxx-113xx: [id number] Greta subq tissue 20 sq cm/<
--- NOTE | 2018-08-27 08:25 | PN.PCM_ITS ---
(1) Non-healing wound of lower extremity Status: Chronic Current Visit: Yes Code(s): S81.809A - Unspecified open wound, unspecified lower leg, initial encounter (2) Venous insufficiency of left lower extremity Status: Chronic Current Visit: Yes Code(s): I87.2 - Venous insufficiency (chronic) (peripheral) (3) History of vein stripping Status: Chronic Current Visit: Yes Code(s): Z98.890 - Other specified postprocedural states (4) Edema of both lower extremities Status: Chronic Current Visit: Yes Code(s): R60.0 - Localized edema (5) Nerve pain Status: Acute Current Visit: Yes Code(s): M79.2 - Neuralgia and neuritis, unspecified Type of Wound Date of Service: 08/26/18 Chief Complaint: Nonhealing wound of left lower extremity wound left lower extremity caused by dog scratched March 2018. History of Wound: Patient obtained a left lower leg wound caused by a scratch from his dog 03/2018. He ended up hospitalized with cellulitis and had IV antibiotics. Since March he has been on Keflex for MSSA. He has been applying Neosporin to the site. Patient has a history of vein stripping 15 years ago of that left leg. He has a history of venous stasis. He has significant amount of edema of his lower extremities. Patient has compression stockings that he has not been wearing due to the significant amount of pain of his left lower extremity wound. Patient is obese. Denies smoking. Patient is on his feet standing for 10-15 hours per day. Denies any recent fever chills nausea or vomiting. Progress of Wound: Improving. - Physical Exam Vital Signs Temp Pulse Resp BP 98.0 F 88 16 153/84 H 08/26/18 15:49 08/26/18 15:49 08/26/18 15:49 08/26/18 15:49 General: Alert, Oriented x3, Cooperative HEENT: Atraumatic Cardiovascular: Regular rate Extremities: Diminished Peripheral Pulses, Edema Skin: Ulcer/ Wound - Left lower leg opened area Wound Measurements and Assessment WC - Nurse 1 - General Ulcer Measurement Start: 08/26/18 15:49 Freq: Status: Active Protocol: Activity Type Activity Date Activity User E-Sign Co-Sign Detail Recorded Client Recorded Date Recorded By Document 08/26/18 15:49 [id number] 08/26/18 15:52 08/26/18 15:49 Wound Center Nurse 1 [Ulcer Assessment] 2-left inferior moralez -Combined with other wound No -Current Size (cm) - Length 1.4 -Current Size (cm) - Width 1.1 -Current Size (cm) - Depth 0.1 -Total Square Cm 1.54 -Photo Taken No -Epithelialization Medium 34-66% -Tunneling No -Undermining/Tunneling No -Circular Undermining No -Exudate Amt Small (1-33%) -Exudate Type Serosanguineous -Wound Margin Flat & Intact -Granulation Amt Medium (34-66%) -Granulation Quality Red -Slough/Fibrin Yes -Necrosis Amt Small (1-33%) -Necrotic Tissue Type Adherent Slough -Structure Exposed N/A -Texture (Adali-wound Skin Appearance) Assessed Localized Edema -Moisture (Adali-wound Skin Appearance Assessed ) Dry/Scaly -Color (Adali-wound Skin Appearance) Assessed Hemosiderin Staining -Temperature (Adali-wound Skin No Abnormality Appearance) (Pt Warm) -Tenderness on Palpation (Adali-wound No Skin Appearance) -Ulcer Cleansing Rinsed/ Irrigated with Saline -Foul Odor after Cleansing No -Anesthetic Used 4% Lidocaine Solution #1 Left superior moralez -Combined with other wound No -Current Size (cm) - Length 2.6 -Current Size (cm) - Width 1.6 -Current Size (cm) - Depth 0.1 -Total Square Cm 4.16 -Photo Taken No -Epithelialization Medium 34-66% -Tunneling No -Undermining/Tunneling No -Circular Undermining No -Exudate Amt Medium (34-66%) -Exudate Type Serosanguineous -Wound Margin Flat & Intact -Granulation Amt Medium (34-66%) -Granulation Quality Red -Slough/Fibrin Yes -Necrosis Amt Small (1-33%) -Necrotic Tissue Type Adherent Slough -Structure Exposed N/A -Texture (Adali-wound Skin Appearance) Assessed Localized Edema -Moisture (Adali-wound Skin Appearance Assessed ) Dry/Scaly -Color (Adali-wound Skin Appearance) Assessed Hemosiderin Staining -Temperature (Adali-wound Skin No Abnormality Appearance) (Pt Warm) -Tenderness on Palpation (Adali-wound No Skin Appearance) -Ulcer Cleansing Rinsed/ Irrigated with Saline -Foul Odor after Cleansing No -Anesthetic Used 4% Lidocaine Solution [Edema Assessment] -Lower Limb Edema Present Yes -Left Calf (cm) 49.0 -Left Ankle (cm) 29.0 SILVANO - Nurse 2 - General Ulcer CM Notes Start: 08/26/18 15:49 Freq: Status: Active Protocol: Activity Type Activity Date Activity User E-Sign Co-Sign Detail Recorded Client Recorded Date Recorded By Document 08/26/18 16:23 [id number] 08/26/18 16:28 08/26/18 16:23 Wound Center Nurse 2 [Procedure/Treatment] 2-left inferior moralez -Time 16:25 -Correct Patient Yes -Correct Side, Site, Position Yes -Correct Procedure Yes -Procedure Performed Yes -Type of Procedure Debridement -Clinical Debridement Subcutaneous -Post Debridement Size (cm) - Length 1.3 -Post Debridement Size (cm) - Width 1.7 -Post Debridement Size (cm) - Depth 0.2 -Total Square Cm 2.21 -Wound/Ulcer Outcome Not Healed -Ulcer Cleansing Rinsed/ Irrigated with Saline -Foul Odor after Cleansing No -Bioengineered Tissue No -Bleeding Controlled with Pressure -Treatment Response Procedure Tolerated Well #1 Left superior moralez -Time 16:25 -Correct Patient Yes -Correct Side, Site, Position Yes -Correct Procedure Yes -Procedure Performed Yes -Type of Procedure Debridement -Clinical Debridement Subcutaneous -Post Debridement Size (cm) - Length 2.5 -Post Debridement Size (cm) - Width 1.7 -Post Debridement Size (cm) - Depth 0.2 -Total Square Cm 4.25 -Wound/Ulcer Outcome Not Healed -Ulcer Cleansing Rinsed/ Irrigated with Saline -Foul Odor after Cleansing No -Bioengineered Tissue No -Bleeding Controlled with Pressure -Treatment Response Procedure Tolerated Well [See Physician Procedure note for Specifics] Pain Scale: 0-10 Numeric [Pain] -Is Patient Pain Free? Yes Musculoskeletal: No Tenderness to Palpation of Joints or Extremities Neurological: Neuro grossly intact Psych/Mental Status: Normal Affect, Appropriate Debridement Note Post-Debridement Measurements/Treatment SILVANO - Nurse 2 - General Ulcer CM Notes Start: 08/26/18 15:49 Freq: Status: Active Protocol: Activity Type Activity Date Activity User E-Sign Co-Sign Detail Recorded Client Recorded Date Recorded By Document 08/26/18 16:23 [id number] 08/26/18 16:28 08/26/18 16:23 Wound Center Nurse 2 2-left inferior moralez -Time 16:25 -Correct Patient Yes -Correct Side, Site, Position Yes -Correct Procedure Yes -Procedure Performed Yes -Type of Procedure Debridement -Clinical Debridement Subcutaneous -Post Debridement Size (cm) - Length 1.3 -Post Debridement Size (cm) - Width 1.7 -Post Debridement Size (cm) - Depth 0.2 -Total Square Cm 2.21 -Wound/Ulcer Outcome Not Healed -Ulcer Cleansing Rinsed/ Irrigated with Saline -Foul Odor after Cleansing No -Bioengineered Tissue No -Bleeding Controlled with Pressure -Treatment Response Procedure Tolerated Well #1 Left superior moralez -Time 16:25 -Correct Patient Yes -Correct Side, Site, Position Yes -Correct Procedure Yes -Procedure Performed Yes -Type of Procedure Debridement -Clinical Debridement Subcutaneous -Post Debridement Size (cm) - Length 2.5 -Post Debridement Size (cm) - Width 1.7 -Post Debridement Size (cm) - Depth 0.2 -Total Square Cm 4.25 -Wound/Ulcer Outcome Not Healed -Ulcer Cleansing Rinsed/ Irrigated with Saline -Foul Odor after Cleansing No -Bioengineered Tissue No -Bleeding Controlled with Pressure -Treatment Response Procedure Tolerated Well Pain Scale: 0-10 Numeric Is Patient Pain Free? Yes Wound debrided: left lower leg Laterality: Left Type of Debridement: Excisional debridement Anesthesia Used: 5% Lidocaine Gel Depth: Down to and including healthy tissue, in the subcutaneous layer Percentage of wound debrided: 100 Instrument Used: 3mm curette Tissue Removed: Subcutaneous tissue and slough Severity: Fat Layer Exposed Amount of bleeding with debridement: Mild Bleeding Controlled with: Pressure Patient tolerated procedure well Assessment/Plan Active Problems Non-healing wound of lower extremity (Chronic) Venous insufficiency of left lower extremity (Chronic) History of vein stripping (Chronic) Edema of both lower extremities (Chronic) Nerve pain (Acute) Assessment: 1. Non-healing wound of lower extremity (Acute). 2. Venous insufficiency of left lower extremity (Chronic). 3. History of vein stripping (Chronic). 4. Edema of both lower extremities (Chronic) Plan: Subcutaneous debridement was performed today. Patient tolerated the procedure well. Patient's wounds consists of a cluster wound on his left anterior/lateral lower extremity. He continues to have a significant amount of bioburden. He would benefit from a product that would help reduce that between visits. Since the appligraf was too expensive, will apply for Santyl to see if that is more cost effective for him. Will have him continue aquacel silver with adaptic daily until we hear if he qualifies and can afford Santyl. He has started the Neurotin and is now taking it twice per day. He is not sure if he has started to notice a difference in his burning pain. Will apply Tubigrip today for compression (since he does not like any other compression). He may wear his home compression on his right lower extremity. Stressed again the importance of compression. Instructed to try to elevate his legs for 30 minutes at least 3 times a day. He had his appointment with Dr. Carrillo 08/13/18. He states that Dr. Carrillo would like his wound improved before doing anything else. He will follow up with Dr. Carrillo in 3 months. Wound cultures showed Staphylococcus aureus and anaerobic cocci. Patient completed his antibiotics of doxycycline and Flagyl. Baseline bloodwork was unremarkable. Pre-albumin 21.4 from 07/15/18. Venous doppler studies showed Right popliteal vein incompetent. Left sapheno-femoral junction is incompetent. RGS segmentally incompetent. Left GSV has been partially harvested. Of segments remaing, the left GSV is incompetent in the left thigh and near the left ankle. Small saphenous veins are patent and incompetent bilaterally. A right accessory saphenous vein below the knee is incompetent. A left accessory saphenous vein in the thigh is incompetent. An incompetent senior credit officer vein is noted in the right calf proximal to the right medial malleolus. An incompetent senior credit officer vein is n oted in the left calf proximal to the left medial malleolus. Patient educated on the importance of diet on wound healing and instructed to increase his protein intake. Patient verbalized understanding. We will have him follow-up in the wound center in 1 week. Code Visit 111xxx-113xx: [id number] Greta subq tissue 20 sq cm/<
[2018-09-02 16:10] VITALS: BP 154/88; PULSE 79; RESP 18; TEMP 36.1
--- NOTE | 2018-09-02 17:47 | PCM.WC.PN ---
(1) Non-healing wound of lower extremity Status: Chronic Current Visit: Yes Code(s): S81.809A - Unspecified open wound, unspecified lower leg, initial encounter (2) Venous insufficiency of left lower extremity Status: Chronic Current Visit: Yes Code(s): I87.2 - Venous insufficiency (chronic) (peripheral) (3) History of vein stripping Status: Chronic Current Visit: Yes Code(s): Z98.890 - Other specified postprocedural states (4) Edema of both lower extremities Status: Chronic Current Visit: Yes Code(s): R60.0 - Localized edema (5) Nerve pain Status: Acute Current Visit: Yes Code(s): M79.2 - Neuralgia and neuritis, unspecified Type of Wound Date of Service: 09/02/18 Chief Complaint: Nonhealing wound of left lower extremity wound left lower extremity caused by dog scratched March 2018. History of Wound: Patient obtained a left lower leg wound caused by a scratch from his dog 03/2018. He ended up hospitalized with cellulitis and had IV antibiotics. Since March he has been on Keflex for MSSA. He has been applying Neosporin to the site. Patient has a history of vein stripping 15 years ago of that left leg. He has a history of venous stasis. He has significant amount of edema of his lower extremities. Patient has compression stockings that he has not been wearing due to the significant amount of pain of his left lower extremity wound. Patient is obese. Denies smoking. Patient is on his feet standing for 10-15 hours per day. Denies any recent fever chills nausea or vomiting. Progress of Wound: Improving. - Physical Exam Vital Signs Temp Pulse Resp BP 97 F L 79 18 154/88 H 09/02/18 16:10 09/02/18 16:10 09/02/18 16:10 09/02/18 16:10 General: Alert, Oriented x3, Cooperative HEENT: Atraumatic Oral: Moist Mucosa Extremities: Diminished Peripheral Pulses, Edema Skin: Ulcer/ Wound - Left lower anterior/lateral leg ulcers Wound Measurements and Assessment WC - Nurse 1 - General Ulcer Measurement Start: 08/26/18 15:49 Freq: Status: Active Protocol: Activity Type Activity Date Activity User E-Sign Co-Sign Detail Recorded Client Recorded Date Recorded By Document 09/02/18 16:10 IN [id number] 09/02/18 16:17 IN 09/02/18 16:10 Wound Center Nurse 1 [Ulcer Assessment] 2-left inferior moralez -Combined with other wound No -Current Size (cm) - Length 1.7 -Current Size (cm) - Width 1.4 -Current Size (cm) - Depth 0.1 -Total Square Cm 2.38 -Photo Taken No -Tunneling No -Undermining/Tunneling No -Circular Undermining No -Exudate Amt Medium (34-66%) -Exudate Type Serosanguineous -Wound Margin Flat & Intact -Granulation Amt Medium (34-66%) -Granulation Quality Pale [place] -Slough/Fibrin Yes -Necrosis Amt Small (1-33%) -Necrotic Tissue Type Adherent Slough -Texture (Adali-wound Skin Appearance) Assessed Localized Edema -Moisture (Adali-wound Skin Appearance Assessed ) Maceration -Color (Adali-wound Skin Appearance) Assessed -Temperature (Adali-wound Skin No Abnormality Appearance) (Pt Warm) -Ulcer Cleansing Rinsed/ Irrigated with Saline -Foul Odor after Cleansing No -Anesthetic Used 5% Lidocaine Gel #1 Left superior moralez -Current Size (cm) - Length 3 -Current Size (cm) - Width 1.9 -Current Size (cm) - Depth 0.1 -Total Square Cm 5.7 -Photo Taken No -Tunneling No -Undermining/Tunneling No -Circular Undermining No -Exudate Amt None Present (0 %) -Exudate Type Serosanguineous -Wound Margin Flat & Intact -Granulation Amt Medium (34-66%) -Granulation Quality Pale [place] -Necrosis Amt Medium (34-66%) -Necrotic Tissue Type Adherent Slough -Texture (Adali-wound Skin Appearance) Assessed Localized Edema -Moisture (Adali-wound Skin Appearance Assessed ) Maceration -Color (Adali-wound Skin Appearance) Assessed -Temperature (Adali-wound Skin No Abnormality Appearance) (Pt Warm) -Tenderness on Palpation (Adali-wound No Skin Appearance) -Ulcer Cleansing Rinsed/ Irrigated with Saline -Foul Odor after Cleansing No -Anesthetic Used 5% Lidocaine Gel [Edema Assessment] -Right Calf (cm) 47 -Right Ankle (cm) 30 WC - Nurse 2 - General Ulcer CM Notes Start: 08/26/18 15:49 Freq: Status: Active Protocol: Activity Type Activity Date Activity User E-Sign Co-Sign Detail Recorded Client Recorded Date Recorded By Document 09/02/18 16:35 [id number] 09/02/18 16:40 09/02/18 16:35 Wound Center Nurse 2 [Procedure/Treatment] 2-left inferior moralez -Time 16:36 -Correct Patient Yes -Correct Side, Site, Position Yes -Correct Procedure Yes -Procedure Performed Yes -Type of Procedure Debridement -Clinical Debridement Subcutaneous -Post Debridement Size (cm) - Length 1.5 -Post Debridement Size (cm) - Width 1.5 -Post Debridement Size (cm) - Depth 0.2 -Total Square Cm 2.25 -Wound/Ulcer Outcome Not Healed -Ulcer Cleansing Rinsed/ Irrigated with Saline -Foul Odor after Cleansing No -Bioengineered Tissue No -Bleeding Controlled with Pressure -Treatment Response Procedure Tolerated Well #1 Left superior moralez -Time 16:36 -Correct Patient Yes -Correct Side, Site, Position Yes -Correct Procedure Yes -Procedure Performed Yes -Type of Procedure Debridement -Clinical Debridement Subcutaneous -Post Debridement Size (cm) - Length 2.8 -Post Debridement Size (cm) - Width 2.0 -Post Debridement Size (cm) - Depth 0.2 -Total Square Cm 5.60 -Wound/Ulcer Outcome Not Healed -Ulcer Cleansing Rinsed/ Irrigated with Saline -Foul Odor after Cleansing No -Bioengineered Tissue No -Bleeding Controlled with Pressure -Treatment Response Procedure Tolerated Well [See Physician Procedure note for Specifics] Pain Scale: 0-10 Numeric [Pain] -Is Patient Pain Free? Yes Musculoskeletal: No Tenderness to Palpation of Joints or Extremities Neurological: Deep Tendon Reflexes 2+/4 and Symmetrical Psych/Mental Status: Normal Affect, Appropriate Debridement Note Post-Debridement Measurements/Treatment WC - Nurse 2 - General Ulcer CM Notes Start: 08/26/18 15:49 Freq: Status: Active Protocol: Activity Type Activity Date Activity User E-Sign Co-Sign Detail Recorded Client Recorded Date Recorded By Document 08/26/18 16:23 [id number] 08/26/18 16:28 Document 09/02/18 16:35 [id number] 09/02/18 16:40 08/26/18 09/02/18 16:23 16:35 Wound Center Nurse 2 2-left inferior moralez -Time 16:25 16:36 -Correct Patient Yes Yes -Correct Side, Site, Position Yes Yes -Correct Procedure Yes Yes -Procedure Performed Yes Yes -Type of Procedure Debridement Debridement -Clinical Debridement Subcutaneous Subcutaneous -Post Debridement Size (cm) - Length 1.3 1.5 -Post Debridement Size (cm) - Width 1.7 1.5 -Post Debridement Size (cm) - Depth 0.2 0.2 -Total Square Cm 2.21 2.25 -Wound/Ulcer Outcome Not Healed Not Healed -Ulcer Cleansing Rinsed/ Rinsed/ Irrigated with Irrigated with Saline Saline -Foul Odor after Cleansing No No -Bioengineered Tissue No No -Bleeding Controlled with Pressure Pressure -Treatment Response Procedure Procedure Tolerated Well Tolerated Well #1 Left superior moralez -Time 16:25 16:36 -Correct Patient Yes Yes -Correct Side, Site, Position Yes Yes -Correct Procedure Yes Yes -Procedure Performed Yes Yes -Type of Procedure Debridement Debridement -Clinical Debridement Subcutaneous Subcutaneous -Post Debridement Size (cm) - Length 2.5 2.8 -Post Debridement Size (cm) - Width 1.7 2.0 -Post Debridement Size (cm) - Depth 0.2 0.2 -Total Square Cm 4.25 5.60 -Wound/Ulcer Outcome Not Healed Not Healed -Ulcer Cleansing Rinsed/ Rinsed/ Irrigated with Irrigated with Saline Saline -Foul Odor after Cleansing No No -Bioengineered Tissue No No -Bleeding Controlled with Pressure Pressure -Treatment Response Procedure Procedure Tolerated Well Tolerated Well Pain Scale: 0-10 Numeric Is Patient Pain Free? Yes Yes Wound debrided: Left lower anterior/lateral ulcer Type of Debridement: Excisional debridement Anesthesia Used: 4% Lidocaine Solution Depth: Down to and including healthy tissue, in the subcutaneous layer Percentage of wound debrided: 100 Instrument Used: 3mm curette Tissue Removed: Subcutaneous tissue and slough Severity: Fat Layer Exposed Amount of bleeding with debridement: Mild Bleeding Controlled with: Pressure Patient did not tolerate procedure well - Patient having significant amount of discomfort during debridement due to the amount of slough Assessment/Plan Active Problems Non-healing wound of lower extremity (Chronic) Venous insufficiency of left lower extremity (Chronic) History of vein stripping (Chronic) Edema of both lower extremities (Chronic) Nerve pain (Acute) Assessment: 1. Non-healing wound of lower extremity (Acute). 2. Venous insufficiency of left lower extremity (Chronic). 3. History of vein stripping (Chronic). 4. Edema of both lower extremities (Chronic) Plan: Subcutaneous debridement was performed today. Patient tolerated the procedure well. Patient's ulcer consists of a cluster opened on his left anterior/lateral lower extremity. He continues to have a significant amount of bioburden. He would benefit from a product that would help reduce that between visits. Since the appligraf was too expensive, will apply for Santyl to see if that is more cost effective for him. He states that Santyl is $50 and he can afford it, he just has not paid to get it. Will have him continue aquacel silver with adaptic daily until we hear if he qualifies and can afford Santyl. He has started the Neurotin and is now taking it twice per day. He is not sure if he has started to notice a difference in his burning pain. Will apply double wrap Tubigrip and loi wrap today for compression. He may wear his home compression on his right lower extremity. Stressed again the importance of compression. Instructed to try to elevate his legs for 30 minutes at least 3 times a day. He had his appointment with Dr. Carrillo 08/13/18. He states that Dr. Carrillo would like his wound improved before doing anything else. He will follow up with Dr. Carrillo in 3 months. Wound cultures showed Staphylococcus aureus and anaerobic cocci. Patient completed his antibiotics of doxycycline and Flagyl. Baseline bloodwork was unremarkable. Pre-albumin 21.4 from 07/15/18. Venous doppler studies showed Right popliteal vein incompetent. Left sapheno-femoral junction is incompetent. RGS segmentally incompetent. Left GSV has been partially harvested. Of segments remaing, the left GSV is incompetent in the left thigh and near the left ankle. Small saphenous veins are patent and incompetent bilaterally. A right accessory saphenous vein below the knee is incompetent. A left accessory saphenous vein in the thigh is incompetent. An incompetent slug press operator vein is noted in the right calf proximal to the right medial malleolus. An incompetent slug press operator vein is noted in the left calf proximal to the left medial malleolus. Patient educated on the importance of diet on wound healing and instructed to increase his protein intake. Patient verbalized understanding. We will have him follow-up in the wound center in 2 weeks due to his work schedule. Code Visit [id number]: [id number] Greta subq tissue 20 sq cm/<
--- NOTE | 2018-09-04 11:52 | PN.PCM_ITS ---
(1) Non-healing wound of lower extremity Status: Chronic Current Visit: Yes Code(s): S81.809A - Unspecified open wound, unspecified lower leg, initial encounter (2) Venous insufficiency of left lower extremity Status: Chronic Current Visit: Yes Code(s): I87.2 - Venous insufficiency (chronic) (peripheral) (3) History of vein stripping Status: Chronic Current Visit: Yes Code(s): Z98.890 - Other specified postprocedural states (4) Edema of both lower extremities Status: Chronic Current Visit: Yes Code(s): R60.0 - Localized edema (5) Nerve pain Status: Acute Current Visit: Yes Code(s): M79.2 - Neuralgia and neuritis, unspecified Type of Wound Date of Service: 09/02/18 Chief Complaint: Nonhealing wound of left lower extremity wound left lower extremity caused by dog scratched March 2018. History of Wound: Patient obtained a left lower leg wound caused by a scratch from his dog 03/2018. He ended up hospitalized with cellulitis and had IV antibiotics. Since March he has been on Keflex for MSSA. He has been applying Neosporin to the site. Patient has a history of vein stripping 15 years ago of that left leg. He has a history of venous stasis. He has significant amount of edema of his lower extremities. Patient has compression stockings that he has not been wearing due to the significant amount of pain of his left lower extremity wound. Patient is obese. Denies smoking. Patient is on his feet standing for 10-15 hours per day. Denies any recent fever chills nausea or vomiting. Progress of Wound: Improving. - Physical Exam Vital Signs Temp Pulse Resp BP 97 F L 79 18 154/88 H 09/02/18 16:10 09/02/18 16:10 09/02/18 16:10 09/02/18 16:10 General: Alert, Oriented x3, Cooperative HEENT: Atraumatic Oral: Moist Mucosa Extremities: Diminished Peripheral Pulses, Edema Skin: Ulcer/ Wound - Left lower anterior/lateral leg ulcers Wound Measurements and Assessment WC - Nurse 1 - General Ulcer Measurement Start: 08/26/18 15:49 Freq: Status: Active Protocol: Activity Type Activity Date Activity User E-Sign Co-Sign Detail Recorded Client Recorded Date Recorded By Document 09/02/18 16:10 RI [id number] 09/02/18 16:17 RI 09/02/18 16:10 Wound Center Nurse 1 [Ulcer Assessment] 2-left inferior moralez -Combined with other wound No -Current Size (cm) - Length 1.7 -Current Size (cm) - Width 1.4 -Current Size (cm) - Depth 0.1 -Total Square Cm 2.38 -Photo Taken No -Tunneling No -Undermining/Tunneling No -Circular Undermining No -Exudate Amt Medium (34-66%) -Exudate Type Serosanguineous -Wound Margin Flat & Intact -Granulation Amt Medium (34-66%) -Granulation Quality Pale [place] -Slough/Fibrin Yes -Necrosis Amt Small (1-33%) -Necrotic Tissue Type Adherent Slough -Texture (Adali-wound Skin Appearance) Assessed Localized Edema -Moisture (Adali-wound Skin Appearance Assessed ) Maceration -Color (Adali-wound Skin Appearance) Assessed -Temperature (Adali-wound Skin No Abnormality Appearance) (Pt Warm) -Ulcer Cleansing Rinsed/ Irrigated with Saline -Foul Odor after Cleansing No -Anesthetic Used 5% Lidocaine Gel #1 Left superior moralez -Current Size (cm) - Length 3 -Current Size (cm) - Width 1.9 -Current Size (cm) - Depth 0.1 -Total Square Cm 5.7 -Photo Taken No -Tunneling No -Undermining/Tunneling No -Circular Undermining No -Exudate Amt None Present (0 %) -Exudate Type Serosanguineous -Wound Margin Flat & Intact -Granulation Amt Medium (34-66%) -Granulation Quality Pale [place] -Necrosis Amt Medium (34-66%) -Necrotic Tissue Type Adherent Slough -Texture (Adali-wound Skin Appearance) Assessed Localized Edema -Moisture (Adali-wound Skin Appearance Assessed ) Maceration -Color (Adali-wound Skin Appearance) Assessed -Temperature (Adali-wound Skin No Abnormality Appearance) (Pt Warm) -Tenderness on Palpation (Adali-wound No Skin Appearance) -Ulcer Cleansing Rinsed/ Irrigated with Saline -Foul Odor after Cleansing No -Anesthetic Used 5% Lidocaine Gel [Edema Assessment] -Right Calf (cm) 47 -Right Ankle (cm) 30 WC - Nurse 2 - General Ulcer CM Notes Start: 08/26/18 15:49 Freq: Status: Active Protocol: Activity Type Activity Date Activity User E-Sign Co-Sign Detail Recorded Client Recorded Date Recorded By Document 09/02/18 16:35 [id number] 09/02/18 16:40 09/02/18 16:35 Wound Center Nurse 2 [Procedure/Treatment] 2-left inferior moralez -Time 16:36 -Correct Patient Yes -Correct Side, Site, Position Yes -Correct Procedure Yes -Procedure Performed Yes -Type of Procedure Debridement -Clinical Debridement Subcutaneous -Post Debridement Size (cm) - Length 1.5 -Post Debridement Size (cm) - Width 1.5 -Post Debridement Size (cm) - Depth 0.2 -Total Square Cm 2.25 -Wound/Ulcer Outcome Not Healed -Ulcer Cleansing Rinsed/ Irrigated with Saline -Foul Odor after Cleansing No -Bioengineered Tissue No -Bleeding Controlled with Pressure -Treatment Response Procedure Tolerated Well #1 Left superior moralez -Time 16:36 -Correct Patient Yes -Correct Side, Site, Position Yes -Correct Procedure Yes -Procedure Performed Yes -Type of Procedure Debridement -Clinical Debridement Subcutaneous -Post Debridement Size (cm) - Length 2.8 -Post Debridement Size (cm) - Width 2.0 -Post Debridement Size (cm) - Depth 0.2 -Total Square Cm 5.60 -Wound/Ulcer Outcome Not Healed -Ulcer Cleansing Rinsed/ Irrigated with Saline -Foul Odor after Cleansing No -Bioengineered Tissue No -Bleeding Controlled with Pressure -Treatment Response Procedure Tolerated Well [See Physician Procedure note for Specifics] Pain Scale: 0-10 Numeric [Pain] -Is Patient Pain Free? Yes Musculoskeletal: No Tenderness to Palpation of Joints or Extremities Neurological: Deep Tendon Reflexes 2+/4 and Symmetrical Psych/Mental Status: Normal Affect, Appropriate Debridement Note Post-Debridement Measurements/Treatment WC - Nurse 2 - General Ulcer CM Notes Start: 08/26/18 15:49 Freq: Status: Active Protocol: Activity Type Activity Date Activity User E-Sign Co-Sign Detail Recorded Client Recorded Date Recorded By Document 08/26/18 16:23 [id number] 08/26/18 16:28 Document 09/02/18 16:35 [id number] 09/02/18 16:40 08/26/18 09/02/18 16:23 16:35 Wound Center Nurse 2 2-left inferior moralez -Time 16:25 16:36 -Correct Patient Yes Yes -Correct Side, Site, Position Yes Yes -Correct Procedure Yes Yes -Procedure Performed Yes Yes -Type of Procedure Debridement Debridement -Clinical Debridement Subcutaneous Subcutaneous -Post Debridement Size (cm) - Length 1.3 1.5 -Post Debridement Size (cm) - Width 1.7 1.5 -Post Debridement Size (cm) - Depth 0.2 0.2 -Total Square Cm 2.21 2.25 -Wound/Ulcer Outcome Not Healed Not Healed -Ulcer Cleansing Rinsed/ Rinsed/ Irrigated with Irrigated with Saline Saline -Foul Odor after Cleansing No No -Bioengineered Tissue No No -Bleeding Controlled with Pressure Pressure -Treatment Response Procedure Procedure Tolerated Well Tolerated Well #1 Left superior moralez -Time 16:25 16:36 -Correct Patient Yes Yes -Correct Side, Site, Position Yes Yes -Correct Procedure Yes Yes -Procedure Performed Yes Yes -Type of Procedure Debridement Debridement -Clinical Debridement Subcutaneous Subcutaneous -Post Debridement Size (cm) - Length 2.5 2.8 -Post Debridement Size (cm) - Width 1.7 2.0 -Post Debridement Size (cm) - Depth 0.2 0.2 -Total Square Cm 4.25 5.60 -Wound/Ulcer Outcome Not Healed Not Healed -Ulcer Cleansing Rinsed/ Rinsed/ Irrigated with Irrigated with Saline Saline -Foul Odor after Cleansing No No -Bioengineered Tissue No No -Bleeding Controlled with Pressure Pressure -Treatment Response Procedure Procedure Tolerated Well Tolerated Well Pain Scale: 0-10 Numeric Is Patient Pain Free? Yes Yes Wound debrided: Left lower anterior/lateral ulcer Type of Debridement: Excisional debridement Anesthesia Used: 4% Lidocaine Solution Depth: Down to and including healthy tissue, in the subcutaneous layer Percentage of wound debrided: 100 Instrument Used: 3mm curette Tissue Removed: Subcutaneous tissue and slough Severity: Fat Layer Exposed Amount of bleeding with debridement: Mild Bleeding Controlled with: Pressure Patient did not tolerate procedure well - Patient having significant amount of discomfort during debridement due to the amount of slough Assessment/Plan Active Problems Non-healing wound of lower extremity (Chronic) Venous insufficiency of left lower extremity (Chronic) History of vein stripping (Chronic) Edema of both lower extremities (Chronic) Nerve pain (Acute) Assessment: 1. Non-healing wound of lower extremity (Acute). 2. Venous insufficiency of left lower extremity (Chronic). 3. History of vein stripping (Chronic). 4. Edema of both lower extremities (Chronic) Plan: Subcutaneous debridement was performed today. Patient tolerated the procedure well. Patient's ulcer consists of a cluster opened on his left anterior/lateral lower extremity. He continues to have a significant amount of bioburden. He would benefit from a product that would help reduce that between visits. Since the appligraf was too expensive, will apply for Santyl to see if that is more cost effective for him. He states that Santyl is $50 and he can afford it, he just has not paid to get it. Will have him continue aquacel silver with adaptic daily until we hear if he qualifies and can afford Santyl. He has started the Neurotin and is now taking it twice per day. He is not sure if he has started to notice a difference in his burning pain. Will apply double wrap Tubigrip and loi wrap today for compression. He may wear his home compression on his right lower extremity. Stressed again the importance of compression. Instructed to try to elevate his legs for 30 minutes at least 3 times a day. He had his appointment with Dr. Carrillo 08/13/18. He states that Dr. Carrillo would like his wound improved before doing anything else. He will follow up with Dr. Carrillo in 3 months. Wound cultures showed Staphylococcus aureus and anaerobic cocci. Patient completed his antibiotics of doxycycline and Flagyl. Baseline bloodwork was unremarkable. Pre-albumin 21.4 from 07/15/18. Venous doppler studies showed Right popliteal vein incompetent. Left sapheno-femoral junction is incompetent. RGS segmentally incompetent. Left GSV has been partially harvested. Of segments remaing, the left GSV is incompetent in the left thigh and near the left ankle. Small saphenous veins are patent and incompetent bilaterally. A right accessory saphenous vein below the knee is incompetent. A left accessory saphenous vein in the thigh is incompetent. An incompetent stock order lister vein is noted in the right calf proximal to the right medial malleolus. An incompetent stock order lister vein is noted in the left calf proximal to the left medial malleolus. Patient educated on the importance of diet on wound healing and instructed to increase his protein intake. Patient verbalized understanding. We will have him follow-up in the wound center in 2 weeks due to his work schedule. Code Visit 111xxx-[id number]: [id number] Greta subq tissue 20 sq cm/<
[2018-09-16 15:53] VITALS: BP 164/81; PULSE 88; RESP 18; TEMP 36.5
--- NOTE | 2018-09-19 10:28 | PCM.WC.PN ---
(1) Non-healing wound of lower extremity Status: Chronic Current Visit: Yes Code(s): S81.809A - Unspecified open wound, unspecified lower leg, initial encounter (2) Venous insufficiency of left lower extremity Status: Chronic Current Visit: Yes Code(s): I87.2 - Venous insufficiency (chronic) (peripheral) (3) History of vein stripping Status: Chronic Current Visit: Yes Code(s): Z98.890 - Other specified postprocedural states (4) Edema of both lower extremities Status: Chronic Current Visit: Yes Code(s): R60.0 - Localized edema (5) Nerve pain Status: Acute Current Visit: Yes Code(s): M79.2 - Neuralgia and neuritis, unspecified Type of Wound Date of Service: 09/16/18 Chief Complaint: Nonhealing wound of left lower extremity wound left lower extremity caused by dog scratched March 2018. History of Wound: Patient obtained a left lower leg wound caused by a scratch from his dog 03/2018. He ended up hospitalized with cellulitis and had IV antibiotics. Since March he has been on Keflex for MSSA. He has been applying Neosporin to the site. Patient has a history of vein stripping 15 years ago of that left leg. He has a history of venous stasis. He has significant amount of edema of his lower extremities. Patient has compression stockings that he has not been wearing due to the significant amount of pain of his left lower extremity wound. Patient is obese. Denies smoking. Patient is on his feet standing for 10-15 hours per day. Denies any recent fever chills nausea or vomiting. Progress of Wound: Improving. - Physical Exam Vital Signs Temp Pulse Resp BP 97.7 F L 88 18 164/81 H 09/16/18 15:53 09/16/18 15:53 09/16/18 15:53 09/16/18 15:53 General: Alert, Oriented x3, Cooperative HEENT: Atraumatic Oral: Moist Mucosa Lungs: Normal air movement Cardiovascular: Regular rate Extremities: Capillary Refill Less than 3 Seconds, Diminished Peripheral Pulses, Edema Skin: Ulcer/ Wound - Left lower leg wound Wound Measurements and Assessment WC - Nurse 1 - General Ulcer Measurement Start: 08/26/18 15:49 Freq: Status: Active Protocol: Activity Type Activity Date Activity User E-Sign Co-Sign Detail Recorded Client Recorded Date Recorded By Document 09/16/18 15:53 TM [id number] 09/16/18 15:56 TM 09/16/18 15:53 Wound Center Nurse 1 [Ulcer Assessment] 2-left inferior moralez -Combined with other wound No -Current Size (cm) - Length 1.1 -Current Size (cm) - Width 1.5 -Current Size (cm) - Depth 0.1 -Total Square Cm 1.65 -Photo Taken No -Epithelialization Small 1-33% -Tunneling No -Undermining/Tunneling No -Circular Undermining No -Classification - Thickness Full Thickness without Exposed Support Structure -Exudate Amt Small (1-33%) -Exudate Type Serosanguineous -Wound Margin Distinct, Outline Attached -Granulation Amt Large (67-100%) -Granulation Quality Red -Slough/Fibrin Yes -Necrosis Amt Small (1-33%) -Necrotic Tissue Type Adherent Slough -Structure Exposed Fascia Fat Layer Exposed -Texture (Adali-wound Skin Appearance) Assessed Localized Edema Scarring -Moisture (Adali-wound Skin Appearance Assessed ) Maceration -Color (Adali-wound Skin Appearance) Assessed Hemosiderin Staining -Temperature (Adali-wound Skin No Abnormality Appearance) (Pt Warm) -Tenderness on Palpation (Adali-wound No Skin Appearance) -Ulcer Cleansing Rinsed/ Irrigated with Saline -Foul Odor after Cleansing No -Anesthetic Used 5% Lidocaine Gel #1 Left superior moralez -Combined with other wound No -Current Size (cm) - Length 3.0 -Current Size (cm) - Width 2.0 -Current Size (cm) - Depth 0.1 -Total Square Cm 6.00 -Photo Taken No -Epithelialization Small 1-33% -Tunneling No -Undermining/Tunneling No -Circular Undermining No -Classification - Thickness Full Thickness without Exposed Support Structure -Exudate Amt Medium (34-66%) -Exudate Type Serosanguineous -Wound Margin Distinct, Outline Attached -Granulation Amt Large (67-100%) -Granulation Quality Red -Slough/Fibrin Yes -Necrosis Amt Small (1-33%) -Necrotic Tissue Type Adherent Slough -Structure Exposed Fascia Fat Layer Exposed -Texture (Adali-wound Skin Appearance) Assessed Friable Localized Edema Scarring -Moisture (Adali-wound Skin Appearance Assessed ) Maceration -Color (Adali-wound Skin Appearance) Assessed Hemosiderin Staining -Temperature (Adali-wound Skin No Abnormality Appearance) (Pt Warm) -Tenderness on Palpation (Adali-wound No Skin Appearance) -Ulcer Cleansing Rinsed/ Irrigated with Saline -Foul Odor after Cleansing No -Anesthetic Used 5% Lidocaine Gel [Edema Assessment] -Lower Limb Edema Present Yes -Left Calf (cm) 49.0 -Left Ankle (cm) 28.0 WC - Nurse 2 - General Ulcer CM Notes Start: 08/26/18 15:49 Freq: Status: Active Protocol: Activity Type Activity Date Activity User E-Sign Co-Sign Detail Recorded Client Recorded Date Recorded By Document 09/16/18 16:25 JF [id number] 09/16/18 16:26 JF 09/16/18 16:25 Wound Center Nurse 2 [Procedure/Treatment] 2-left inferior moralez -Time 16:25 -Correct Patient Yes -Correct Side, Site, Position Yes -Correct Procedure Yes -Procedure Performed Yes -Type of Procedure Debridement -Clinical Debridement Subcutaneous -Post Debridement Size (cm) - Length 1.2 -Post Debridement Size (cm) - Width 1.7 -Post Debridement Size (cm) - Depth 0.1 -Total Square Cm 2.04 -Wound/Ulcer Outcome Not Healed -Ulcer Cleansing Rinsed/ Irrigated with Saline -Foul Odor after Cleansing No -Bioengineered Tissue No -Bleeding Controlled with Pressure -Treatment Response Procedure Tolerated Well #1 Left superior moralez -Time 16:25 -Correct Patient Yes -Correct Side, Site, Position Yes -Correct Procedure Yes -Procedure Performed Yes -Type of Procedure Debridement -Clinical Debridement Subcutaneous -Post Debridement Size (cm) - Length 2.1 -Post Debridement Size (cm) - Width 1.4 -Post Debridement Size (cm) - Depth 0.1 -Total Square Cm 2.94 -Wound/Ulcer Outcome Not Healed -Ulcer Cleansing Rinsed/ Irrigated with Saline -Foul Odor after Cleansing No -Bioengineered Tissue No -Bleeding Controlled with Pressure -Treatment Response Procedure Tolerated Well [See Physician Procedure note for Specifics] Pain Scale: 0-10 Numeric [Pain] -Is Patient Pain Free? Yes Musculoskeletal: No Tenderness to Palpation of Joints or Extremities Neurological: Neuro grossly intact Psych/Mental Status: Normal Affect, Appropriate Debridement Note Post-Debridement Measurements/Treatment WC - Nurse 2 - General Ulcer CM Notes Start: 08/26/18 15:49 Freq: Status: Active Protocol: Activity Type Activity Date Activity User E-Sign Co-Sign Detail Recorded Client Recorded Date Recorded By Document 08/26/18 16:23 [id number] 08/26/18 16:28 Document 09/02/18 16:35 [id number] 09/02/18 16:40 Document 09/16/18 16:25 [id number] 09/16/18 16:26 08/26/18 09/02/18 09/16/18 16:23 16:35 16:25 Wound Center Nurse 2 2-left inferior moralez -Time 16:25 16:36 16:25 -Correct Patient Yes Yes Yes -Correct Side, Site, Position Yes Yes Yes -Correct Procedure Yes Yes Yes -Procedure Performed Yes Yes Yes -Type of Procedure Debridement Debridement Debridement -Clinical Debridement Subcutaneous Subcutaneous Subcutaneous -Post Debridement Size (cm) - Length 1.3 1.5 1.2 -Post Debridement Size (cm) - Width 1.7 1.5 1.7 -Post Debridement Size (cm) - Depth 0.2 0.2 0.1 -Total Square Cm 2.21 2.25 2.04 -Wound/Ulcer Outcome Not Healed Not Healed Not Healed -Ulcer Cleansing Rinsed/ Rinsed/ Rinsed/ Irrigated with Irrigated with Irrigated with Saline Saline Saline -Foul Odor after Cleansing No No No -Bioengineered Tissue No No No -Bleeding Controlled with Pressure Pressure Pressure -Treatment Response Procedure Procedure Procedure Tolerated Well Tolerated Well Tolerated Well #1 Left superior moralez -Time 16:25 16:36 16:25 -Correct Patient Yes Yes Yes -Correct Side, Site, Position Yes Yes Yes -Correct Procedure Yes Yes Yes -Procedure Performed Yes Yes Yes -Type of Procedure Debridement Debridement Debridement -Clinical Debridement Subcutaneous Subcutaneous Subcutaneous -Post Debridement Size (cm) - Length 2.5 2.8 2.1 -Post Debridement Size (cm) - Width 1.7 2.0 1.4 -Post Debridement Size (cm) - Depth 0.2 0.2 0.1 -Total Square Cm 4.25 5.60 2.94 -Wound/Ulcer Outcome Not Healed Not Healed Not Healed -Ulcer Cleansing Rinsed/ Rinsed/ Rinsed/ Irrigated with Irrigated with Irrigated with Saline Saline Saline -Foul Odor after Cleansing No No No -Bioengineered Tissue No No No -Bleeding Controlled with Pressure Pressure Pressure -Treatment Response Procedure Procedure Procedure Tolerated Well Tolerated Well Tolerated Well Pain Scale: 0-10 Numeric Is Patient Pain Free? Yes Yes Yes Wound debrided: Left lower leg Laterality: Left Type of Debridement: Excisional debridement Anesthesia Used: 4% Lidocaine Solution Depth: Down to and including healthy tissue, in the subcutaneous layer Percentage of wound debrided: 100 Instrument Used: 5mm curette Tissue Removed: Subcutaneous tissue and slough Severity: Fat Layer Exposed Amount of bleeding with debridement: Mild Bleeding Controlled with: Pressure Patient tolerated procedure well Assessment/Plan Active Problems Non-healing wound of lower extremity (Chronic) Venous insufficiency of left lower extremity (Chronic) History of vein stripping (Chronic) Edema of both lower extremities (Chronic) Nerve pain (Acute) Assessment: 1. Non-healing wound of lower extremity (Acute). 2. Venous insufficiency of left lower extremity (Chronic). 3. History of vein stripping (Chronic). 4. Edema of both lower extremities (Chronic) Plan: Subcutaneous debridement was performed today. Patient tolerated the procedure well. Patient's ulcer consists of a cluster opened on his left anterior/lateral lower extremity. He continues to have a significant amount of bioburden. He would benefit from a product that would help reduce that between visits. Since the appligraf was too expensive, will apply for Santyl to see if that is more cost effective for him. He has been using Santyl a couple weeks ago. There has been improvement in the amount of bioburden on this wound. It is starting to look much better. He has started the Neurotin and is now taking it twice per day for his burning nerve pain. Continue to double wrap Tubigrip and for compression. He may wear his home compression on his right lower extremity. Stressed again the importance of compression. Instructed to try to elevate his legs for 30 minutes at least 3 times a day. He had his appointment with Dr. Carrillo 08/13/18. He states that Dr. Carrillo would like his wound improved before doing anything else. He will follow up with Dr. Carrillo in 3 months. Wound cultures showed Staphylococcus aureus and anaerobic cocci. Patient completed his antibiotics of doxycycline and Flagyl. Baseline bloodwork was unremarkable. Pre-albumin 21.4 from 07/15/18. Venous doppler studies showed Right popliteal vein incompetent. Left sapheno-femoral junction is incompetent. RGS segmentally incompetent. Left GSV has been partially harvested. Of segments remaing, the left GSV is incompetent in the left thigh and near the left ankle. Small saphenous veins are patent and incompetent bilaterally. A right accessory saphenous vein below the knee is incompetent. A left accessory saphenous vein in the thigh is incompetent. An incompetent engineering secretary vein is noted in the right calf proximal to the right medial malleolus. An incompetent engineering secretary vein is noted in the left calf proximal to the left medial malleolus. Patient educated on the importance of diet on wound healing and instructed to increase his protein intake. Patient verbalized understanding. We will have him follow-up in the wound center in 1 week. Code Visit [id number]: [id number] Greta subq tissue 20 sq cm/<
--- NOTE | 2018-09-19 10:32 | PN.PCM_ITS ---
(1) Non-healing wound of lower extremity Status: Chronic Current Visit: Yes Code(s): S81.809A - Unspecified open wound, unspecified lower leg, initial encounter (2) Venous insufficiency of left lower extremity Status: Chronic Current Visit: Yes Code(s): I87.2 - Venous insufficiency (chronic) (peripheral) (3) History of vein stripping Status: Chronic Current Visit: Yes Code(s): Z98.890 - Other specified postprocedural states (4) Edema of both lower extremities Status: Chronic Current Visit: Yes Code(s): R60.0 - Localized edema (5) Nerve pain Status: Acute Current Visit: Yes Code(s): M79.2 - Neuralgia and neuritis, unspecified Type of Wound Date of Service: 09/16/18 Chief Complaint: Nonhealing wound of left lower extremity wound left lower extremity caused by dog scratched March 2018. History of Wound: Patient obtained a left lower leg wound caused by a scratch from his dog 03/2018. He ended up hospitalized with cellulitis and had IV antibiotics. Since March he has been on Keflex for MSSA. He has been applying Neosporin to the site. Patient has a history of vein stripping 15 years ago of that left leg. He has a history of venous stasis. He has significant amount of edema of his lower extremities. Patient has compression stockings that he has not been wearing due to the significant amount of pain of his left lower extremity wound. Patient is obese. Denies smoking. Patient is on his feet standing for 10-15 hours per day. Denies any recent fever chills nausea or vomiting. Progress of Wound: Improving. - Physical Exam Vital Signs Temp Pulse Resp BP 97.7 F L 88 18 164/81 H 09/16/18 15:53 09/16/18 15:53 09/16/18 15:53 09/16/18 15:53 General: Alert, Oriented x3, Cooperative HEENT: Atraumatic Oral: Moist Mucosa Lungs: Normal air movement Cardiovascular: Regular rate Extremities: Capillary Refill Less than 3 Seconds, Diminished Peripheral Pulses, Edema Skin: Ulcer/ Wound - Left lower leg wound Wound Measurements and Assessment WC - Nurse 1 - General Ulcer Measurement Start: 08/26/18 15:49 Freq: Status: Active Protocol: Activity Type Activity Date Activity User E-Sign Co-Sign Detail Recorded Client Recorded Date Recorded By Document 09/16/18 15:53 TM [id number] 09/16/18 15:56 TM 09/16/18 15:53 Wound Center Nurse 1 [Ulcer Assessment] 2-left inferior moralez -Combined with other wound No -Current Size (cm) - Length 1.1 -Current Size (cm) - Width 1.5 -Current Size (cm) - Depth 0.1 -Total Square Cm 1.65 -Photo Taken No -Epithelialization Small 1-33% -Tunneling No -Undermining/Tunneling No -Circular Undermining No -Classification - Thickness Full Thickness without Exposed Support Structure -Exudate Amt Small (1-33%) -Exudate Type Serosanguineous -Wound Margin Distinct, Outline Attached -Granulation Amt Large (67-100%) -Granulation Quality Red -Slough/Fibrin Yes -Necrosis Amt Small (1-33%) -Necrotic Tissue Type Adherent Slough -Structure Exposed Fascia Fat Layer Exposed -Texture (Adali-wound Skin Appearance) Assessed Localized Edema Scarring -Moisture (Adali-wound Skin Appearance Assessed ) Maceration -Color (Adali-wound Skin Appearance) Assessed Hemosiderin Staining -Temperature (Adali-wound Skin No Abnormality Appearance) (Pt Warm) -Tenderness on Palpation (Adali-wound No Skin Appearance) -Ulcer Cleansing Rinsed/ Irrigated with Saline -Foul Odor after Cleansing No -Anesthetic Used 5% Lidocaine Gel #1 Left superior moralez -Combined with other wound No -Current Size (cm) - Length 3.0 -Current Size (cm) - Width 2.0 -Current Size (cm) - Depth 0.1 -Total Square Cm 6.00 -Photo Taken No -Epithelialization Small 1-33% -Tunneling No -Undermining/Tunneling No -Circular Undermining No -Classification - Thickness Full Thickness without Exposed Support Structure -Exudate Amt Medium (34-66%) -Exudate Type Serosanguineous -Wound Margin Distinct, Outline Attached -Granulation Amt Large (67-100%) -Granulation Quality Red -Slough/Fibrin Yes -Necrosis Amt Small (1-33%) -Necrotic Tissue Type Adherent Slough -Structure Exposed Fascia Fat Layer Exposed -Texture (Adali-wound Skin Appearance) Assessed Friable Localized Edema Scarring -Moisture (Adali-wound Skin Appearance Assessed ) Maceration -Color (Adali-wound Skin Appearance) Assessed Hemosiderin Staining -Temperature (Adali-wound Skin No Abnormality Appearance) (Pt Warm) -Tenderness on Palpation (Adali-wound No Skin Appearance) -Ulcer Cleansing Rinsed/ Irrigated with Saline -Foul Odor after Cleansing No -Anesthetic Used 5% Lidocaine Gel [Edema Assessment] -Lower Limb Edema Present Yes -Left Calf (cm) 49.0 -Left Ankle (cm) 28.0 WC - Nurse 2 - General Ulcer CM Notes Start: 08/26/18 15:49 Freq: Status: Active Protocol: Activity Type Activity Date Activity User E-Sign Co-Sign Detail Recorded Client Recorded Date Recorded By Document 09/16/18 16:25 JF [id number] 09/16/18 16:26 JF 09/16/18 16:25 Wound Center Nurse 2 [Procedure/Treatment] 2-left inferior moralez -Time 16:25 -Correct Patient Yes -Correct Side, Site, Position Yes -Correct Procedure Yes -Procedure Performed Yes -Type of Procedure Debridement -Clinical Debridement Subcutaneous -Post Debridement Size (cm) - Length 1.2 -Post Debridement Size (cm) - Width 1.7 -Post Debridement Size (cm) - Depth 0.1 -Total Square Cm 2.04 -Wound/Ulcer Outcome Not Healed -Ulcer Cleansing Rinsed/ Irrigated with Saline -Foul Odor after Cleansing No -Bioengineered Tissue No -Bleeding Controlled with Pressure -Treatment Response Procedure Tolerated Well #1 Left superior moralez -Time 16:25 -Correct Patient Yes -Correct Side, Site, Position Yes -Correct Procedure Yes -Procedure Performed Yes -Type of Procedure Debridement -Clinical Debridement Subcutaneous -Post Debridement Size (cm) - Length 2.1 -Post Debridement Size (cm) - Width 1.4 -Post Debridement Size (cm) - Depth 0.1 -Total Square Cm 2.94 -Wound/Ulcer Outcome Not Healed -Ulcer Cleansing Rinsed/ Irrigated with Saline -Foul Odor after Cleansing No -Bioengineered Tissue No -Bleeding Controlled with Pressure -Treatment Response Procedure Tolerated Well [See Physician Procedure note for Specifics] Pain Scale: 0-10 Numeric [Pain] -Is Patient Pain Free? Yes Musculoskeletal: No Tenderness to Palpation of Joints or Extremities Neurological: Neuro grossly intact Psych/Mental Status: Normal Affect, Appropriate Debridement Note Post-Debridement Measurements/Treatment WC - Nurse 2 - General Ulcer CM Notes Start: 08/26/18 15:49 Freq: Status: Active Protocol: Activity Type Activity Date Activity User E-Sign Co-Sign Detail Recorded Client Recorded Date Recorded By Document 08/26/18 16:23 [id number] 08/26/18 16:28 Document 09/02/18 16:35 [id number] 09/02/18 16:40 Document 09/16/18 16:25 [id number] 09/16/18 16:26 08/26/18 09/02/18 09/16/18 16:23 16:35 16:25 Wound Center Nurse 2 2-left inferior moralez -Time 16:25 16:36 16:25 -Correct Patient Yes Yes Yes -Correct Side, Site, Position Yes Yes Yes -Correct Procedure Yes Yes Yes -Procedure Performed Yes Yes Yes -Type of Procedure Debridement Debridement Debridement -Clinical Debridement Subcutaneous Subcutaneous Subcutaneous -Post Debridement Size (cm) - Length 1.3 1.5 1.2 -Post Debridement Size (cm) - Width 1.7 1.5 1.7 -Post Debridement Size (cm) - Depth 0.2 0.2 0.1 -Total Square Cm 2.21 2.25 2.04 -Wound/Ulcer Outcome Not Healed Not Healed Not Healed -Ulcer Cleansing Rinsed/ Rinsed/ Rinsed/ Irrigated with Irrigated with Irrigated with Saline Saline Saline -Foul Odor after Cleansing No No No -Bioengineered Tissue No No No -Bleeding Controlled with Pressure Pressure Pressure -Treatment Response Procedure Procedure Procedure Tolerated Well Tolerated Well Tolerated Well #1 Left superior moralez -Time 16:25 16:36 16:25 -Correct Patient Yes Yes Yes -Correct Side, Site, Position Yes Yes Yes -Correct Procedure Yes Yes Yes -Procedure Performed Yes Yes Yes -Type of Procedure Debridement Debridement Debridement -Clinical Debridement Subcutaneous Subcutaneous Subcutaneous -Post Debridement Size (cm) - Length 2.5 2.8 2.1 -Post Debridement Size (cm) - Width 1.7 2.0 1.4 -Post Debridement Size (cm) - Depth 0.2 0.2 0.1 -Total Square Cm 4.25 5.60 2.94 -Wound/Ulcer Outcome Not Healed Not Healed Not Healed -Ulcer Cleansing Rinsed/ Rinsed/ Rinsed/ Irrigated with Irrigated with Irrigated with Saline Saline Saline -Foul Odor after Cleansing No No No -Bioengineered Tissue No No No -Bleeding Controlled with Pressure Pressure Pressure -Treatment Response Procedure Procedure Procedure Tolerated Well Tolerated Well Tolerated Well Pain Scale: 0-10 Numeric Is Patient Pain Free? Yes Yes Yes Wound debrided: Left lower leg Laterality: Left Type of Debridement: Excisional debridement Anesthesia Used: 4% Lidocaine Solution Depth: Down to and including healthy tissue, in the subcutaneous layer Percentage of wound debrided: 100 Instrument Used: 5mm curette Tissue Removed: Subcutaneous tissue and slough Severity: Fat Layer Exposed Amount of bleeding with debridement: Mild Bleeding Controlled with: Pressure Patient tolerated procedure well Assessment/Plan Active Problems Non-healing wound of lower extremity (Chronic) Venous insufficiency of left lower extremity (Chronic) History of vein stripping (Chronic) Edema of both lower extremities (Chronic) Nerve pain (Acute) Assessment: 1. Non-healing wound of lower extremity (Acute). 2. Venous insufficiency of left lower extremity (Chronic). 3. History of vein stripping (Chronic). 4. Edema of both lower extremities (Chronic) Plan: Subcutaneous debridement was performed today. Patient tolerated the procedure well. Patient's ulcer consists of a cluster opened on his left anterior/lateral lower extremity. He continues to have a significant amount of bioburden. He would benefit from a product that would help reduce that between visits. Since the appligraf was too expensive, will apply for Santyl to see if that is more cost effective for him. He has been using Santyl a couple weeks ago. There has been improvement in the amount of bioburden on this wound. It is starting to look much better. He has started the Neurotin and is now taking it twice per day for his burning nerve pain. Continue to double wrap Tubigrip and for compression. He may wear his home compression on his right lower extremity. Stressed again the importance of compression. Instructed to try to elevate his legs for 30 minutes at least 3 times a day. He had his appointment with Dr. Carrillo 08/13/18. He states that Dr. Carrillo would like his wound improved before doing anything else. He will follow up with Dr. aCrrillo in 3 months. Wound cultures showed Staphylococcus aureus and anaerobic cocci. Patient completed his antibiotics of doxycycline and Flagyl. Baseline bloodwork was unremarkable. Pre-albumin 21.4 from 07/15/18. Venous doppler studies showed Right popliteal vein incompetent. Left sapheno-femoral junction is incompetent. RGS segmentally incompetent. Left GSV has been partially harvested. Of segments remaing, the left GSV is incompetent in the left thigh and near the left ankle. Small saphenous veins are patent and incompetent bilaterally. A right accessory saphenous vein below the knee is incompetent. A left accessory saphenous vein in the thigh is incompetent. An incompetent tool procurement coordinator vein is noted in the right calf proximal to the right medial malleolus. An incompetent tool procurement coordinator vein is noted in the left calf proximal to the left medial malleolus. Patient educated on the importance of diet on wound healing and instructed to increase his protein intake. Patient verbalized understanding. We will have him follow-up in the wound center in 1 week. Code Visit 111xxx-[id number]: [id number] Greta subq tissue 20 sq cm/<
== END 2018-09-19 23:59 ==
LOC: WC 15:30
PROVIDERS: Referring Provider Nurse Practitioner Family; Visit Provider Nurse Practitioner Family
DX: I87.2 Venous insufficiency (chronic) (peripheral) (principal); S80.812A Abrasion, left lower leg, initial encounter; W45.8XXA Other foreign body or object entering through skin, initial encounter; Z98.890 Other specified postprocedural states; R60.0 Localized edema; M79.2 Neuralgia and neuritis, unspecified; E66.9 Obesity, unspecified; Z68.41 Body mass index [BMI] 40.0-44.9, adult; Z71.3 Dietary counseling and surveillance
CPT/HCPCS: 11042

== ENCOUNTER 2018-10-20 08:30 | Outpatient (RCR) | payer BC, SELFPAY ==
[2018-09-20 01:24] VITALS: BP 164/81; PULSE 88; RESP 18; TEMP 36.5
[2018-09-23 15:38] VITALS: BP 156/79; PULSE 80; RESP 18; TEMP 36.2
--- NOTE | 2018-09-23 16:24 | PCM.WC.PN ---
(1) Non-healing wound of lower extremity Status: Chronic Current Visit: Yes Code(s): S81.809A - Unspecified open wound, unspecified lower leg, initial encounter (2) Venous insufficiency of left lower extremity Status: Chronic Current Visit: Yes Code(s): I87.2 - Venous insufficiency (chronic) (peripheral) (3) History of vein stripping Status: Chronic Current Visit: Yes Code(s): Z98.890 - Other specified postprocedural states (4) Edema of both lower extremities Status: Chronic Current Visit: Yes Code(s): R60.0 - Localized edema (5) Nerve pain Status: Acute Current Visit: Yes Code(s): M79.2 - Neuralgia and neuritis, unspecified Type of Wound Date of Service: 09/23/18 Chief Complaint: Nonhealing wound of left lower extremity wound left lower extremity caused by dog scratched March 2018. History of Wound: Patient obtained a left lower leg wound caused by a scratch from his dog 03/2018. He ended up hospitalized with cellulitis and had IV antibiotics. Since March he has been on Keflex for MSSA. He has been applying Neosporin to the site. Patient has a history of vein stripping 15 years ago of that left leg. He has a history of venous stasis. He has significant amount of edema of his lower extremities. Patient has compression stockings that he has not been wearing due to the significant amount of pain of his left lower extremity wound. Patient is obese. Denies smoking. Patient is on his feet standing for 10-15 hours per day. We were approved for Apligraf but due to the amount of out of pocket for the patient, he refused to use it. Started using Santyl with improvment wound bed. Denies any recent fever chills nausea or vomiting. Progress of Wound: Improving. - Physical Exam Vital Signs Temp Pulse Resp BP 97.1 F L 80 18 156/79 H 09/23/18 15:38 09/23/18 15:38 09/23/18 15:38 09/23/18 15:38 General: Alert, Oriented x3, Cooperative HEENT: Atraumatic Oral: Moist Mucosa Lungs: Normal air movement Cardiovascular: Regular rate Extremities: Capillary Refill Less than 3 Seconds, Edema, Peripheral Pulses Normal Skin: Ulcer/ Wound - Left lower leg with 2 sepate opened areas. Improvement in wound bed using Santyl Wound Measurements and Assessment WC - Nurse 1 - General Ulcer Measurement Start: 09/23/18 15:38 Freq: Status: Active Protocol: Activity Type Activity Date Activity User E-Sign Co-Sign Detail Recorded Client Recorded Date Recorded By Document 09/23/18 15:38 [id number] 09/23/18 15:42 TM 09/23/18 15:38 Wound Center Nurse 1 [Ulcer Assessment] 2-left inferior moralez -Combined with other wound No -Current Size (cm) - Length 1.1 -Current Size (cm) - Width 1.1 -Current Size (cm) - Depth 0.1 -Total Square Cm 1.21 -Photo Taken No -Epithelialization Small 1-33% -Tunneling No -Undermining/Tunneling No -Circular Undermining No -Classification - Thickness Full Thickness without Exposed Support Structure -Exudate Amt Medium (34-66%) -Exudate Type Serosanguineous -Wound Margin Distinct, Outline Attached -Granulation Amt Large (67-100%) -Granulation Quality Red -Slough/Fibrin Yes -Necrosis Amt Small (1-33%) -Necrotic Tissue Type Adherent Slough -Structure Exposed Fascia Fat Layer Exposed -Texture (Adali-wound Skin Appearance) Assessed Friable Localized Edema -Moisture (Adali-wound Skin Appearance Assessed ) Maceration -Color (Adali-wound Skin Appearance) Assessed Hemosiderin Staining -Temperature (Adali-wound Skin No Abnormality Appearance) (Pt Warm) -Tenderness on Palpation (Adali-wound No Skin Appearance) -Ulcer Cleansing Rinsed/ Irrigated with Saline -Foul Odor after Cleansing No -Anesthetic Used 5% Lidocaine Gel #1 Left superior moralez -Combined with other wound No -Current Size (cm) - Length 1.7 -Current Size (cm) - Width 1.5 -Current Size (cm) - Depth 0.1 -Total Square Cm 2.55 -Photo Taken No -Epithelialization Small 1-33% -Tunneling No -Undermining/Tunneling No -Circular Undermining No -Classification - Thickness Full Thickness without Exposed Support Structure -Exudate Amt Small (1-33%) -Exudate Type Serosanguineous -Wound Margin Distinct, Outline Attached -Granulation Amt Large (67-100%) -Granulation Quality Red -Slough/Fibrin Yes -Necrosis Amt Small (1-33%) -Necrotic Tissue Type Adherent Slough -Structure Exposed Fascia Fat Layer Exposed -Texture (Adali-wound Skin Appearance) Assessed Friable Localized Edema Rash -Moisture (Adali-wound Skin Appearance Assessed ) Maceration -Color (Adali-wound Skin Appearance) Assessed Hemosiderin Staining -Temperature (Adali-wound Skin No Abnormality Appearance) (Pt Warm) -Tenderness on Palpation (Adali-wound No Skin Appearance) -Ulcer Cleansing Rinsed/ Irrigated with Saline -Foul Odor after Cleansing No -Anesthetic Used 5% Lidocaine Gel [Edema Assessment] -Lower Limb Edema Present Yes -Left Calf (cm) 50.5 -Left Ankle (cm) 28.0 WC - Nurse 2 - General Ulcer CM Notes Start: 09/23/18 15:38 Freq: Status: Active Protocol: Activity Type Activity Date Activity User E-Sign Co-Sign Detail Recorded Client Recorded Date Recorded By Document 09/23/18 15:54 CORI [id number] 09/23/18 15:55 CORI 09/23/18 15:54 Wound Center Nurse 2 [Procedure/Treatment] 2-left inferior moralez -Time 15:54 -Correct Patient Yes -Correct Side, Site, Position Yes -Correct Procedure Yes -Procedure Performed Yes -Type of Procedure Debridement -Clinical Debridement Subcutaneous -Post Debridement Size (cm) - Length 1.1 -Post Debridement Size (cm) - Width 1.4 -Post Debridement Size (cm) - Depth 0.1 -Total Square Cm 1.54 -Wound/Ulcer Outcome Not Healed -Ulcer Cleansing Rinsed/ Irrigated with Saline -Foul Odor after Cleansing No -Bioengineered Tissue No -Bleeding Controlled with Pressure -Offloading No -Treatment Response Procedure Tolerated Well #1 Left superior moralez -Time 15:54 -Correct Patient Yes -Correct Side, Site, Position Yes -Correct Procedure Yes -Procedure Performed Yes -Type of Procedure Debridement -Clinical Debridement Subcutaneous -Post Debridement Size (cm) - Length 1.9 -Post Debridement Size (cm) - Width 1.5 -Post Debridement Size (cm) - Depth 0.2 -Total Square Cm 2.85 -Wound/Ulcer Outcome Not Healed -Ulcer Cleansing Rinsed/ Irrigated with Saline -Foul Odor after Cleansing No -Bioengineered Tissue No -Bleeding Controlled with Pressure -Offloading No -Treatment Response Procedure Tolerated Well [See Physician Procedure note for Specifics] Pain Scale: 0-10 Numeric [Pain] -Is Patient Pain Free? Yes Musculoskeletal: No Tenderness to Palpation of Joints or Extremities Neurological: Neuro grossly intact Psych/Mental Status: Normal Affect, Appropriate Debridement Note Post-Debridement Measurements/Treatment WC - Nurse 2 - General Ulcer CM Notes Start: 09/23/18 15:38 Freq: Status: Active Protocol: Activity Type Activity Date Activity User E-Sign Co-Sign Detail Recorded Client Recorded Date Recorded By Document 09/23/18 15:54 [id number] 09/23/18 15:55 09/23/18 15:54 Wound Center Nurse 2 2-left inferior moralez -Time 15:54 -Correct Patient Yes -Correct Side, Site, Position Yes -Correct Procedure Yes -Procedure Performed Yes -Type of Procedure Debridement -Clinical Debridement Subcutaneous -Post Debridement Size (cm) - Length 1.1 -Post Debridement Size (cm) - Width 1.4 -Post Debridement Size (cm) - Depth 0.1 -Total Square Cm 1.54 -Wound/Ulcer Outcome Not Healed -Ulcer Cleansing Rinsed/ Irrigated with Saline -Foul Odor after Cleansing No -Bioengineered Tissue No -Bleeding Controlled with Pressure -Offloading No -Treatment Response Procedure Tolerated Well #1 Left superior moralez -Time 15:54 -Correct Patient Yes -Correct Side, Site, Position Yes -Correct Procedure Yes -Procedure Performed Yes -Type of Procedure Debridement -Clinical Debridement Subcutaneous -Post Debridement Size (cm) - Length 1.9 -Post Debridement Size (cm) - Width 1.5 -Post Debridement Size (cm) - Depth 0.2 -Total Square Cm 2.85 -Wound/Ulcer Outcome Not Healed -Ulcer Cleansing Rinsed/ Irrigated with Saline -Foul Odor after Cleansing No -Bioengineered Tissue No -Bleeding Controlled with Pressure -Offloading No -Treatment Response Procedure Tolerated Well Pain Scale: 0-10 Numeric Is Patient Pain Free? Yes Wound debrided: Left lower anterior proximal Laterality: Left Type of Debridement: Excisional debridement Anesthesia Used: 4% Lidocaine Solution Depth: Down to and including healthy tissue, in the subcutaneous layer Percentage of wound debrided: 100 Instrument Used: 7mm curette Tissue Removed: Subcutaneous tissue and slough Severity: Fat Layer Exposed Amount of bleeding with debridement: Mild Bleeding Controlled with: Pressure Patient tolerated procedure well - Additional Wound Wound debrided: Left lower anterior leg distal Laterality: Left Type of Debridement: Excisional debridement Anesthesia Used: 4% Lidocaine Solution Depth: Down to and including healthy tissue, in the subcutaneous layer Percentage of wound debrided: 100 Instrument Used: 7mm curette Tissue Removed: Subcutaneous tissue Severity: Fat Layer Exposed Amount of bleeding with debridement: None Bleeding Controlled with: Pressure Patient tolerated procedure: Patient tolerated procedure well Assessment/Plan Active Problems Non-healing wound of lower extremity (Chronic) Venous insufficiency of left lower extremity (Chronic) History of vein stripping (Chronic) Edema of both lower extremities (Chronic) Nerve pain (Acute) Assessment: 1. Non-healing wound of lower extremity (Acute). 2. Venous insufficiency of left lower extremity (Chronic). 3. History of vein stripping (Chronic). 4. Edema of both lower extremities (Chronic) Plan: Subcutaneous debridement was performed today. Patient tolerated the procedure well. Patient's ulcer consists of a cluster opened on his left anterior/lateral lower extremity. Continue using Santyl daily. There has been improvement in the amount of bioburden on this wound. It is starting to look much better. He finished the neurotin and does not think it helped much for the burining nerve pain he experiences. Continue to double wrap Tubigrip and AMI wrap for compression. He may wear his home compression on his right lower extremity. Stressed again the importance of compression. Instructed to try to elevate his legs for 30 minutes at least 3 times a day. He had his appointment with Dr. Carrillo 08/13/18. He states that Dr. Carrillo would like his wound improved before doing anything else. He will follow up with Dr. Carrillo in 3 months. Wound cultures showed Staphylococcus aureus and anaerobic cocci. Patient completed his antibiotics of doxycycline and Flagyl. Baseline bloodwork was unremarkable. Pre-albumin 21.4 from 07/15/18. Venous doppler studies showed Right popliteal vein incompetent. Left sapheno-femoral junction is incompetent. RGS segmentally incompetent. Left GSV has been partially harvested. Of segments remaing, the left GSV is incompetent in the left thigh and near the left ankle. Small saphenous veins are patent and incompetent bilaterally. A right accessory saphenous vein below the knee is incompetent. A left accessory saphenous vein in the thigh is incompetent. An incompetent portable c[employer] operator vein is noted in the right calf proximal to the right medial malleolus. An incompetent portable cante[employer] operator vein is noted in the left calf proximal to the left medial malleolus. Patient educated on the importance of diet on wound healing and instructed to increase his protein intake. Patient verbalized understanding. We will have him follow-up in the wound center in 1 week. Code Visit [id number]: 53092 Greta subq tissue 20 sq cm/<
--- NOTE | 2018-09-30 16:52 | PCM.WC.PN ---
(1) Non-healing wound of lower extremity Status: Chronic Current Visit: Yes Code(s): S81.809A - Unspecified open wound, unspecified lower leg, initial encounter (2) Venous insufficiency of left lower extremity Status: Chronic Current Visit: Yes Code(s): I87.2 - Venous insufficiency (chronic) (peripheral) (3) History of vein stripping Status: Chronic Current Visit: Yes Code(s): Z98.890 - Other specified postprocedural states (4) Edema of both lower extremities Status: Chronic Current Visit: Yes Code(s): R60.0 - Localized edema (5) Nerve pain Status: Acute Current Visit: Yes Code(s): M79.2 - Neuralgia and neuritis, unspecified Type of Wound Date of Service: 09/30/18 Chief Complaint: Nonhealing wound of left lower extremity wound left lower extremity caused by dog scratched March 2018. History of Wound: Patient obtained a left lower leg wound caused by a scratch from his dog 03/2018. He ended up hospitalized with cellulitis and had IV antibiotics. Since March he has been on Keflex for MSSA. He has been applying Neosporin to the site. Patient has a history of vein stripping 15 years ago of that left leg. He has a history of venous stasis. He has significant amount of edema of his lower extremities. Patient has compression stockings that he has not been wearing due to the significant amount of pain of his left lower extremity wound. Patient is obese. Denies smoking. Patient is on his feet standing for 10-15 hours per day. We were approved for Apligraf but due to the amount of out of pocket for the patient, he refused to use it. Started using Santyl with some improvment wound bed. Denies any recent fever chills nausea or vomiting. Progress of Wound: Not showing much improvement. Using Santyl, but this week seems to have more biofilm than he previously has had. Continues to have lower extremity edema. - Physical Exam Vital Signs Temp Pulse Resp BP 97.1 F L 80 18 156/79 H 09/23/18 15:38 09/23/18 15:38 09/23/18 15:38 09/23/18 15:38 General: Alert, Oriented x3, Cooperative HEENT: Atraumatic Oral: Moist Mucosa Lungs: Normal air movement Cardiovascular: Regular rate Extremities: Capillary Refill Less than 3 Seconds, Edema - +1-+2 pitting edema, Peripheral Pulses Normal Skin: Ulcer/ Wound - Left lower leg with two open areas Wound Measurements and Assessment WC - Nurse 1 - General Ulcer Measurement Start: 09/23/18 15:38 Freq: Status: Active Protocol: Activity Type Activity Date Activity User E-Sign Co-Sign Detail Recorded Client Recorded Date Recorded By Document 09/30/18 16:06 DV [id number] 09/30/18 16:17 DV 09/30/18 16:06 Wound Center Nurse 1 [Ulcer Assessment] 2-left inferior moralez -Combined with other wound No -Current Size (cm) - Length 1.1 -Current Size (cm) - Width 1.2 -Current Size (cm) - Depth 0.1 -Total Square Cm 1.32 -Photo Taken No -Epithelialization Small 1-33% -Tunneling No -Undermining/Tunneling No -Circular Undermining No -Classification - Thickness Full Thickness without Exposed Support Structure -Exudate Amt Large (67-100%) -Exudate Type Serosanguineous -Wound Margin Indistinct, Non -Visible -Granulation Amt Small (1-33%) -Granulation Quality Pale Red -Slough/Fibrin Yes -Necrosis Amt Medium (34-66%) -Necrotic Tissue Type Adherent Slough -Structure Exposed None/Limited to Skin Breakdown -Texture (Adali-wound Skin Appearance) Assessed Localized Edema Scarring -Moisture (Adali-wound Skin Appearance Assessed ) Weeping Dry/Scaly -Color (Adali-wound Skin Appearance) Assessed Hemosiderin Staining -Temperature (Adali-wound Skin No Abnormality Appearance) (Pt Warm) -Tenderness on Palpation (Adali-wound Yes Skin Appearance) -Ulcer Cleansing Rinsed/ Irrigated with Saline -Foul Odor after Cleansing No -Anesthetic Used 4% Lidocaine Solution #1 Left superior moralez -Combined with other wound No -Current Size (cm) - Length 2.6 -Current Size (cm) - Width 1.5 -Current Size (cm) - Depth 0.1 -Total Square Cm 3.90 -Photo Taken No -Epithelialization Small 1-33% -Tunneling No -Undermining/Tunneling No -Circular Undermining No -Classification - Thickness Full Thickness without Exposed Support Structure -Exudate Amt Large (67-100%) -Exudate Type Serosanguineous -Wound Margin Indistinct, Non -Visible -Granulation Amt Small (1-33%) -Granulation Quality N/A -Slough/Fibrin Yes -Necrosis Amt Medium (34-66%) -Necrotic Tissue Type Adherent Slough -Structure Exposed None/Limited to Skin Breakdown -Texture (Adali-wound Skin Appearance) Assessed Localized Edema -Moisture (Adali-wound Skin Appearance Assessed ) Weeping -Color (Adali-wound Skin Appearance) Assessed Hemosiderin Staining -Temperature (Adali-wound Skin No Abnormality Appearance) (Pt Warm) -Tenderness on Palpation (Adali-wound No Skin Appearance) -Ulcer Cleansing Rinsed/ Irrigated with Saline -Foul Odor after Cleansing No -Anesthetic Used 4% Lidocaine Solution [Edema Assessment] -Lower Limb Edema Present Yes -Left Calf (cm) 49.0 -Left Ankle (cm) 28.8 WC - Nurse 2 - General Ulcer CM Notes Start: 09/23/18 15:38 Freq: Status: Active Protocol: Activity Type Activity Date Activity User E-Sign Co-Sign Detail Recorded Client Recorded Date Recorded By Document 09/30/18 16:26 [id number] 09/30/18 16:29 09/30/18 16:26 Wound Center Nurse 2 [Procedure/Treatment] 2-left inferior moralez -Time 16:27 -Correct Patient Yes -Correct Side, Site, Position Yes -Correct Procedure Yes -Procedure Performed Yes -Type of Procedure Debridement -Clinical Debridement Subcutaneous -Post Debridement Size (cm) - Length 1.6 -Post Debridement Size (cm) - Width 1.2 -Post Debridement Size (cm) - Depth 0.2 -Total Square Cm 1.92 -Wound/Ulcer Outcome Not Healed -Ulcer Cleansing Rinsed/ Irrigated with Saline -Foul Odor after Cleansing No -Bioengineered Tissue No -Bleeding Controlled with Pressure -Offloading No -Treatment Response Procedure Tolerated Well #1 Left superior moralez -Time 16:27 -Correct Patient Yes -Correct Side, Site, Position Yes -Correct Procedure Yes -Procedure Performed Yes -Type of Procedure Debridement -Clinical Debridement Subcutaneous -Post Debridement Size (cm) - Length 1.9 -Post Debridement Size (cm) - Width 1.5 -Post Debridement Size (cm) - Depth 0.2 -Total Square Cm 2.85 -Wound/Ulcer Outcome Not Healed -Ulcer Cleansing Rinsed/ Irrigated with Saline -Foul Odor after Cleansing No -Bioengineered Tissue No -Bleeding Controlled with Pressure -Offloading No -Treatment Response Procedure Tolerated Well [See Physician Procedure note for Specifics] Pain Scale: 0-10 Numeric [Pain] -Is Patient Pain Free? Yes Musculoskeletal: No Tenderness to Palpation of Joints or Extremities Neurological: Neuro grossly intact Psych/Mental Status: Normal Affect, Appropriate Debridement Note Post-Debridement Measurements/Treatment WC - Nurse 2 - General Ulcer CM Notes Start: 09/23/18 15:38 Freq: Status: Active Protocol: Activity Type Activity Date Activity User E-Sign Co-Sign Detail Recorded Client Recorded Date Recorded By Document 09/23/18 15:54 [id number] 09/23/18 15:55 Document 09/30/18 16:26 [id number] 09/30/18 16:29 09/23/18 09/30/18 15:54 16:26 Wound Center Nurse 2 2-left inferior moralez -Time 15:54 16:27 -Correct Patient Yes Yes -Correct Side, Site, Position Yes Yes -Correct Procedure Yes Yes -Procedure Performed Yes Yes -Type of Procedure Debridement Debridement -Clinical Debridement Subcutaneous Subcutaneous -Post Debridement Size (cm) - Length 1.1 1.6 -Post Debridement Size (cm) - Width 1.4 1.2 -Post Debridement Size (cm) - Depth 0.1 0.2 -Total Square Cm 1.54 1.92 -Wound/Ulcer Outcome Not Healed Not Healed -Ulcer Cleansing Rinsed/ Rinsed/ Irrigated with Irrigated with Saline Saline -Foul Odor after Cleansing No No -Bioengineered Tissue No No -Bleeding Controlled with Pressure Pressure -Offloading No No -Treatment Response Procedure Procedure Tolerated Well Tolerated Well #1 Left superior moralez -Time 15:54 16:27 -Correct Patient Yes Yes -Correct Side, Site, Position Yes Yes -Correct Procedure Yes Yes -Procedure Performed Yes Yes -Type of Procedure Debridement Debridement -Clinical Debridement Subcutaneous Subcutaneous -Post Debridement Size (cm) - Length 1.9 1.9 -Post Debridement Size (cm) - Width 1.5 1.5 -Post Debridement Size (cm) - Depth 0.2 0.2 -Total Square Cm 2.85 2.85 -Wound/Ulcer Outcome Not Healed Not Healed -Ulcer Cleansing Rinsed/ Rinsed/ Irrigated with Irrigated with Saline Saline -Foul Odor after Cleansing No No -Bioengineered Tissue No No -Bleeding Controlled with Pressure Pressure -Offloading No No -Treatment Response Procedure Procedure Tolerated Well Tolerated Well Pain Scale: 0-10 Numeric Is Patient Pain Free? Yes Yes Wound debrided: Left lower medial leg Laterality: Left Type of Debridement: Excisional debridement Anesthesia Used: 4% Lidocaine Solution Depth: Down to and including healthy tissue, in the subcutaneous layer Percentage of wound debrided: 100 Instrument Used: 3mm curette Tissue Removed: Subcutaneous tissue with a significant amount of slough and bioburden Severity: Limited To Skin Breakdown Amount of bleeding with debridement: Mild Bleeding Controlled with: Pressure Patient tolerated procedure well - Additional Wound Wound debrided: Left lower leg medial/lateral Laterality: Left Type of Debridement: Excisional debridement Anesthesia Used: 4% Lidocaine Solution Depth: Down to and including healthy tissue Percentage of wound debrided: 100 Instrument Used: 3mm curette Tissue Removed: Subcutaneous tissue and slough and bioburden Severity: Limited To Skin Breakdown Amount of bleeding with debridement: Mild Bleeding Controlled with: Pressure Patient tolerated procedure: Patient tolerated procedure well Assessment/Plan Active Problems Non-healing wound of lower extremity (Chronic) Venous insufficiency of left lower extremity (Chronic) History of vein stripping (Chronic) Edema of both lower extremities (Chronic) Nerve pain (Acute) Assessment: 1. Non-healing wound of lower extremity (Acute). 2. Venous insufficiency of left lower extremity (Chronic). 3. History of vein stripping (Chronic). 4. Edema of both lower extremities (Chronic) Plan: Subcutaneous debridement was performed today. Patient tolerated the procedure well. Patient's ulcer consists of a cluster opened on his left anterior/lateral lower extremity. Continue using Santyl daily. There initially was improvement using the Santyl, but the progression has slowed down.He had been on neurotin for the burning nerve pain but he does not think it helped much so he stopped taking it. Continue to double wrap Tubigrip and AMI wrap for compression. He may wear his home compression on his right lower extremity. Stressed again the importance of compression. Instructed to try to elevate his legs for 30 minutes at least 3 times a day. He had his appointment with Dr. Carrillo 08/13/18. He states that Dr. Carrillo would like his wound improved before doing anything else. He will follow up with Dr. Carrillo in 3 months. Wound cultures showed Staphylococcus aureus and anaerobic cocci. Patient completed his antibiotics of doxycycline and Flagyl. Baseline bloodwork was unremarkable. Pre-albumin 21.4 from 07/15/18. Venous doppler studies showed Right popliteal vein incompetent. Left sapheno-femoral junction is incompetent. RGS segmentally incompetent. Left GSV has been partially harvested. Of segments remaing, the left GSV is incompetent in the left thigh and near the left ankle. Small saphenous veins are patent and incompetent bilaterally. A right accessory saphenous vein below the knee is incompetent. A left accessory saphenous vein in the thigh is incompetent. An incompetent [employer] vein is noted in the right calf proximal to the right medial malleolus. An incompetent [employer] vein is noted in the left calf proximal to the left medial malleolus. Patient educated on the importance of diet on wound healing and instructed to increase his protein intake. Patient verbalized understanding. We will have him follow-up in the wound center in [address] Fountain for a second opinion regarding his wound care. Code Visit 111xxx-[id number]: [id number] Greta subq tissue 20 sq cm/<
[2018-10-07 08:07] VITALS: BP 139/81; PULSE 83; RESP 18; TEMP 36
--- NOTE | 2018-10-07 08:48 | PCM.WC.HP ---
(1) Chronic venous insufficiency Status: Chronic Current Visit: Yes Code(s): I87.2 - Venous insufficiency (chronic) (peripheral) (2) Venous hypertension, chronic, with ulcer and inflammation Status: Chronic Current Visit: Yes Qualifiers: Laterality: left Qualified Code(s): I87.332 - Chronic venous hypertension (idiopathic) with ulcer and inflammation of left lower extremity; L97.929 - Non-pressure chronic ulcer of unspecified part of left lower leg with unspecified severity Code(s): I87.339 - Chronic venous hypertension (idiopathic) with ulcer and inflammation of unspecified lower extremity; L97.909 - Non-pressure chronic ulcer of unspecified part of unspecified lower leg with unspecified severity (3) Varicose veins with ulcer and inflammation Status: Chronic Current Visit: Yes Code(s): I83.209 - Varicose veins of unspecified lower extremity with both ulcer of unspecified site and inflammation; L97.909 - Non-pressure chronic ulcer of unspecified part of unspecified lower leg with unspecified severity (4) Venous stasis ulcer Status: Chronic Current Visit: Yes Qualifiers: Venous stasis ulcer site: calf Varicose vein presence: with varicose veins Laterality: left Non-pressure ulcer stage: with fat layer exposed Qualified Code(s): I83.022 - Varicose veins of left lower extremity with ulcer of calf; L97.222 - Non-pressure chronic ulcer of left calf with fat layer exposed Code(s): I83.009 - Varicose veins of unspecified lower extremity with ulcer of unspecified site; L97.909 - Non-pressure chronic ulcer of unspecified part of unspecified lower leg with unspecified severity (5) Leg swelling Status: Acute Current Visit: Yes Code(s): M79.89 - Other specified soft tissue disorders (6) Lipodermatosclerosis Status: Chronic Current Visit: Yes Code(s): I83.10 - Varicose veins of unspecified lower extremity with inflammation (7) Hyperpigmentation Status: Chronic Current Visit: Yes Code(s): L81.9 - Disorder of pigmentation, unspecified (8) Edema of both lower extremities Status: Chronic Current Visit: Yes Code(s): R60.0 - Localized edema (9) History of vein stripping Status: Chronic Current Visit: Yes Code(s): Z98.890 - Other specified postprocedural states (10) Non-healing wound of lower extremity Status: Chronic Current Visit: Yes Qualifiers: Encounter type: initial encounter Laterality: left Qualified Code(s): S81.802A - Unspecified open wound, left lower leg, initial encounter Code(s): S81.809A - Unspecified open wound, unspecified lower leg, initial encounter (11) Venous insufficiency of left lower extremity Status: Chronic Current Visit: Yes Code(s): I87.2 - Venous insufficiency (chronic) (peripheral) History of Present Illness Chief Complaint: Chronic venous insufficiency; venous hypertension with ulceration and inflammation; varicose veins with ulceration and inflammation; leg swelling; leg edema; nonhealing wound of left lower extremity caused by dog scratch- March 2018. History of Wound: This is an otherwise healthy 43-year-old male who has a long-standing history of chronic venous insufficiency, left lower extremity venous hypertension, chronic venous insufficiency, as well as swelling and edema in the left lower extremity. The patient has had approximately 10 years of symptoms in his left lower extremity, which include pain, as well as chronic skin changes such as lipodermatosclerosis and hyperpigmentation. He denies a history of thrombophlebitis. Patient sustained a left lower leg wound caused by a scratch from his dog in March 2018. He ended up hospitalized with cellulitis and had IV antibiotics for MRSA at [facility]. Since March he has been on Keflex for MSSA. He has been treated at our wound center for several months, and is currently being treated with collagenase Santyl topically, and compression to his left lower extremity. He has been treated by conservative measures for many years relative to his chronic venous disease. He has been wearing prescription graduated compression stockings of 20-30 mmHg compression for many years as well. He claims that the compression stockings are painful to wear, and has been using a 2 or 3 layer Tubigrip to his left lower extremity in recent weeks. He has just recently obtained mechanical pneumatic compression pumps, which he is to use several times daily on his left lower extremity. He has a long-standing history of swelling and edema in his left lower extremity, typically worse at the end of the day. 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 He has previously undergone left lower extremity vein stripping in the remote past, approximately 20 years ago. The procedure was performed in a suburban of [place], [place], and the precise nature of the procedure is unknown. Venous duplex examination was performed on July 22, 2018, revealing incompetence of the left great saphenous vein in the thigh, apparent absence of the left great saphenous vein in the mid leg, and incompetence of the left great saphenous vein in the lower calf and ankle. He has been applying Neosporin to the site. Patient has a history of vein stripping 15 years ago of that left leg. He has a history of venous stasis. He has significant amount of edema of his lower extremities. Patient has compression stockings that he has not been wearing due to the significant amount of pain of his left lower extremity wound, but has been wearing several layers of Tubigrip's. Patient is obese. Denies smoking. Patient is on his feet standing for 10-15 hours per day. The patient has been evaluated on an outpatient basis by Dr. Devyn Carrillo, vascular surgeon, who recommended reevaluation and possible endothermal venous ablation at a later date, once the patient's left lower extremity ulceration/wound has healed. Patient is scheduled to return to Dr. Carrillo for evaluation in several months. Despite conservative treatment measures implemented at our wound center, patient is shown little progress, and request has been made for a second opinion and further recommendations. Patient sustained a left lower leg wound caused by a scratch from his dog in March 2018. He ended up hospitalized with cellulitis and had IV antibiotics for MRSA at [facility]. Since March he has been on Keflex for MSSA. He has been treated at our wound center for several months, and is currently being treated with collagenase Santyl topically, and compression to his left lower extremity. He has been treated by conservative measures for many years relative to his chronic venous disease. He has been wearing prescription graduated compression stockings of 20-30 mmHg compression for many years as well. He claims that the compression stockings are painful to wear, and has been using a 2 or 3 layer Tubigrip to his left lower extremity in recent weeks. He has just recently obtained mechanical pneumatic compression pumps, which she is to use several times daily on his left lower extremity. He has a long-standing history of swelling and edema in his left lower extremity, typically worse at the end of the day. 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 He has previously undergone left lower extremity vein stripping in the remote past, approximately 20 years ago. The procedure was performed in a suburban of [place], [place], and the precise nature of the procedure is unknown. Venous duplex examination was performed on July 22, 2018, revealing incompetence of the left great saphenous vein in the thigh, apparent absence of the left great saphenous vein in the mid leg, and incompetence of the left great saphenous vein in the lower calf and ankle. The left accessory saphenous vein is also noted to be incompetent, as is the left small saphenous vein. There is an incompetent left calf rail gang supervisor vein located 7 cm proximal to the left medial malleolus. He has been applying Neosporin to the site. Patient has a history of vein stripping 15 years ago of that left leg. He has a history of venous stasis. He has significant amount of edema of his lower extremities. Patient has compression stockings that he has not been wearing due to the significant amount of pain of his left lower extremity wound. Patient is obese. Denies smoking. Patient is on his feet standing for 10-15 hours per day. Redundancy noted in this report is due to errors created by [employer], which may also account for omissions in this dictated report. Past Medical History Past Medical History: Chronic Problems Non-healing wound of lower extremity (Chronic) Venous insufficiency of left lower extremity (Chronic) History of vein stripping (Chronic) Edema of both lower extremities (Chronic) Chronic venous insufficiency (Chronic) Venous hypertension, chronic, with ulcer and inflammation (Chronic) Varicose veins with ulcer and inflammation (Chronic) Venous stasis ulcer (Chronic) Lipodermatosclerosis (Chronic) Hyperpigmentation (Chronic) Past Medical History: Patient's history is negative for myocardial infarction, congestive heart failure, cerebrovascular accident, hypertension, pulmonary disease, renal disease, hyperlipidemia, and thyroid disease. Surgical History: - - The patient has had bilateral knee arthroscopies on several occasions. He has also undergone a vein stripping procedure in the left lower extremity approximately 20 years ago, the nature of which is uncertain. Allergies/Adverse Reactions: Allergies shrimp Allergy (Verified 07/17/18 10:06) Unknown - Family History Maternal Hypertension Social History: Patient denies tobacco use. He consumes alcoholic beverages socially. He is . 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 Lives: Spouse/ Significant Other Smoking Status: Never smoker Tobacco Use: Non-smoker Alcohol: None Drugs: None Review of Systems Constitutional: Denies: Chills, Fever, Weight Change Eyes: Denies: Pain, Vision Change HEENT: Denies: Difficulty Hearing, Difficulty Swallowing, Sinus Congestion Cardiovascular: Denies: Chest Pain, Palpitations Respiratory: Denies: Cough, Shortness of Breath Gastrointestinal: Denies: Diarrhea, Nausea, Vomiting Genitourinary: Denies: Dysuria, Hematuria Endocrine: Denies: Heat/ Cold Intolerance, Polydipsia, Polyuria Hematologic/ Lymphatic: Denies: Easy Bruising, Easy Bleeding - Physical Exam Vital Signs Temp Pulse Resp BP 96.8 F L 83 18 139/81 H 10/07/18 08:07 10/07/18 08:07 10/07/18 08:07 10/07/18 08:07 General: Alert, Oriented x3, Cooperative, No apparent distress, Well developed, Well nourished, - - The patient is obese HEENT: Atraumatic, PERRLA, EOMI, Normocephalic Oral: Moist Mucosa, No Gingival or Mucosal Lesions/ Ulcerations Neck: Supple, No JVD, Negative Carotid Bruits, Negative Hepatojugular Reflux, No Nodes, No Nuchal Rigidity, Trachea Midline Lungs: Clear to auscultation, Normal air movement, No rhonchi, No wheeze, No rales Cardiovascular: Regular rate, Regular Rhythm, Normal S1, Normal S2, No murmurs Abdomen: Soft, Non Tender, Non-Distended Extremities: No clubbing, No cyanosis, No Calf Tenderness, Edema - Mild swelling and edema is noted in the left lower extremity. Significant skin changes are noted in the left gaiter area as well, including lipodermatosclerosis and hyperpigmentation. There are 2 adjacent ulcers on the left lateral calf. The ulcer dimensions are documented elsewhere. There is no obvious sign of infection or cellulitis. The base of each ulceration is pink and healthy in appearance, with a moderate amount of bioburden., - Wound Measurements and Assessment WC - Nurse 1 - General Ulcer Measurement Start: 09/23/18 15:38 Freq: Status: Active Protocol: Activity Type Activity Date Activity User E-Sign Co-Sign Detail Recorded Client Recorded Date Recorded By Document 10/07/18 08:07 [id number] 10/07/18 08:09 10/07/18 08:07 Wound Center Nurse 1 [Ulcer Assessment] 2-left inferior moralez -Combined with other wound No -Current Size (cm) - Length 1.0 -Current Size (cm) - Width 1.1 -Current Size (cm) - Depth 0.1 -Total Square Cm 1.10 -Photo Taken No -Epithelialization Small 1-33% -Tunneling No -Undermining/Tunneling No -Circular Undermining No -Exudate Amt Small (1-33%) -Exudate Type Serosanguineous -Wound Margin Flat & Intact -Granulation Amt Large (67-100%) -Granulation Quality Red -Slough/Fibrin Yes -Necrosis Amt Small (1-33%) -Necrotic Tissue Type Adherent Slough -Structure Exposed N/A -Texture (Adali-wound Skin Appearance) Assessed Localized Edema -Moisture (Adali-wound Skin Appearance Assessed ) Dry/Scaly -Color (Adali-wound Skin Appearance) Assessed Hemosiderin Staining -Temperature (Adali-wound Skin No Abnormality Appearance) (Pt Warm) -Tenderness on Palpation (Adali-wound No Skin Appearance) -Ulcer Cleansing Wound Cleanser -Foul Odor after Cleansing No -Anesthetic Used 5% Lidocaine Gel #1 Left superior moralez -Combined with other wound No -Current Size (cm) - Length 2.3 -Current Size (cm) - Width 1.7 -Current Size (cm) - Depth 0.1 -Total Square Cm 3.91 -Photo Taken No -Epithelialization Small 1-33% -Tunneling No -Undermining/Tunneling No -Circular Undermining No -Exudate Amt Small (1-33%) -Exudate Type Serosanguineous -Wound Margin Flat & Intact -Granulation Amt Large (67-100%) -Granulation Quality Red -Slough/Fibrin Yes -Necrosis Amt Small (1-33%) -Necrotic Tissue Type Adherent Slough -Structure Exposed N/A -Texture (Adali-wound Skin Appearance) Assessed Localized Edema -Moisture (Adali-wound Skin Appearance Assessed ) Dry/Scaly -Color (Adali-wound Skin Appearance) Assessed Hemosiderin Staining -Temperature (Adali-wound Skin No Abnormality Appearance) (Pt Warm) -Tenderness on Palpation (Adali-wound No Skin Appearance) -Ulcer Cleansing Wound Cleanser -Foul Odor after Cleansing No -Anesthetic Used 5% Lidocaine Gel [Edema Assessment] -Lower Limb Edema Present Yes -Left Calf (cm) 48.0 -Left Ankle (cm) 27.5 WC - Nurse 2 - General Ulcer CM Notes Start: 09/23/18 15:38 Freq: Status: Active Protocol: Activity Type Activity Date Activity User E-Sign Co-Sign Detail Recorded Client Recorded Date Recorded By Document 10/07/18 08:26 DV [id number] 10/07/18 08:40 DV 10/07/18 08:26 Wound Center Nurse 2 [Procedure/Treatment] 2-left inferior moralez -Time 08:32 -Correct Patient Yes -Correct Side, Site, Position Yes -Correct Procedure Yes -Procedure Performed Yes -Type of Procedure Debridement -Clinical Debridement Subcutaneous -Post Debridement Size (cm) - Length 1.1 -Post Debridement Size (cm) - Width 1.2 -Post Debridement Size (cm) - Depth 0.1 -Total Square Cm 1.32 -Wound/Ulcer Outcome Not Healed -Ulcer Cleansing Rinsed/ Irrigated with Saline -Foul Odor after Cleansing No -Bioengineered Tissue No -Bleeding Controlled with Pressure -Offloading No -Treatment Response Procedure Tolerated Well #1 Left superior moralez -Time 08:32 -Correct Patient Yes -Correct Side, Site, Position Yes -Correct Procedure Yes -Procedure Performed Yes -Type of Procedure Debridement -Clinical Debridement Subcutaneous -Post Debridement Size (cm) - Length 2.5 -Post Debridement Size (cm) - Width 1.8 -Post Debridement Size (cm) - Depth 0.1 -Total Square Cm 4.50 -Wound/Ulcer Outcome Not Healed -Ulcer Cleansing Rinsed/ Irrigated with Saline -Foul Odor after Cleansing No -Bioengineered Tissue No -Bleeding Controlled with Pressure -Offloading No -Treatment Response Procedure Tolerated Well [See Physician Procedure note for Specifics] Pain Scale: 0-10 Numeric [Pain] -Is Patient Pain Free? Yes Musculoskeletal: No Muscle Wasting Neurological: Cranial nerves II-XII grossly intact, Neuro grossly intact Psych/Mental Status: Normal Affect, Appropriate, Alert and oriented to time, place, person, mood and affect Debridement Note Post-Debridement Measurements/Treatment SILVANO - Nurse 2 - General Ulcer CM Notes Start: 09/23/18 15:38 Freq: Status: Active Protocol: Activity Type Activity Date Activity User E-Sign Co-Sign Detail Recorded Client Recorded Date Recorded By Document 09/23/18 15:54 [id number] 09/23/18 15:55 Document 09/30/18 16:26 [id number] 09/30/18 16:29 Document 10/07/18 08:26 DV [id number] 10/07/18 08:40 DV 09/23/18 09/30/18 10/07/18 15:54 16:26 08:26 Wound Center Nurse 2 2-left inferior moralez -Time 15:54 16:27 08:32 -Correct Patient Yes Yes Yes -Correct Side, Site, Position Yes Yes Yes -Correct Procedure Yes Yes Yes -Procedure Performed Yes Yes Yes -Type of Procedure Debridement Debridement Debridement -Clinical Debridement Subcutaneous Subcutaneous Subcutaneous -Post Debridement Size (cm) - Length 1.1 1.6 1.1 -Post Debridement Size (cm) - Width 1.4 1.2 1.2 -Post Debridement Size (cm) - Depth 0.1 0.2 0.1 -Total Square Cm 1.54 1.92 1.32 -Wound/Ulcer Outcome Not Healed Not Healed Not Healed -Ulcer Cleansing Rinsed/ Rinsed/ Rinsed/ Irrigated with Irrigated with Irrigated with Saline Saline Saline -Foul Odor after Cleansing No No No -Bioengineered Tissue No No No -Bleeding Controlled with Pressure Pressure Pressure -Offloading No No No -Treatment Response Procedure Procedure Procedure Tolerated Well Tolerated Well Tolerated Well #1 Left superior moralez -Time 15:54 16:27 08:32 -Correct Patient Yes Yes Yes -Correct Side, Site, Position Yes Yes Yes -Correct Procedure Yes Yes Yes -Procedure Performed Yes Yes Yes -Type of Procedure Debridement Debridement Debridement -Clinical Debridement Subcutaneous Subcutaneous Subcutaneous -Post Debridement Size (cm) - Length 1.9 1.9 2.5 -Post Debridement Size (cm) - Width 1.5 1.5 1.8 -Post Debridement Size (cm) - Depth 0.2 0.2 0.1 -Total Square Cm 2.85 2.85 4.50 -Wound/Ulcer Outcome Not Healed Not Healed Not Healed -Ulcer Cleansing Rinsed/ Rinsed/ Rinsed/ Irrigated with Irrigated with Irrigated with Saline Saline Saline -Foul Odor after Cleansing No No No -Bioengineered Tissue No No No -Bleeding Controlled with Pressure Pressure Pressure -Offloading No No No -Treatment Response Procedure Procedure Procedure Tolerated Well Tolerated Well Tolerated Well Pain Scale: 0-10 Numeric Is Patient Pain Free? Yes Yes Yes Laterality: Left - Lateral calf Type of Debridement: Excisional debridement Anesthesia Used: 5% Lidocaine Gel Depth: Down to and including healthy tissue, in the subcutaneous layer Percentage of wound debrided: 100 Instrument Used: 7mm curette Severity: Fat Layer Exposed Amount of bleeding with debridement: Mild Bleeding Controlled with: Compression and gauze Patient tolerated procedure well Assessment/Plan Active Problems Non-healing wound of lower extremity (Chronic) Venous insufficiency of left lower extremity (Chronic) History of vein stripping (Chronic) Edema of both lower extremities (Chronic) Nerve pain (Acute) Chronic venous insufficiency (Chronic) Venous hypertension, chronic, with ulcer and inflammation (Chronic) Varicose veins with ulcer and inflammation (Chronic) Venous stasis ulcer (Chronic) Leg swelling (Acute) Lipodermatosclerosis (Chronic) Hyperpigmentation (Chronic) Assessment: This is a 43-year-old generally healthy white male with severe chronic venous insufficiency, and clinical manifestations related to his chronic venous disease. His 2 left lateral calf ulcerations have failed to heal, despite implemented conservative treatment measures to date. The healing delay appears related to the patient's chronic venous insufficiency, venous hypertension with inflammation, varicose veins with inflammation, etc. 1. Non-healing wound of lower extremity (Acute). 2. Venous insufficiency of left lower extremity (Chronic). 3. History of vein stripping (Chronic). 4. Edema of both lower extremities (Chronic) Plan: Conservative treatment measures relative to the patient's chronic disc disease have been discussed thoroughly. The patient is to elevate his lower extremities much as possible. Leg elevation is to be to heart level, or higher. This is to be accomplished even during daytime hours. The patient is to continue sleeping on a flat mattress at night. Activity has been encouraged. Prolonged idle standing and sitting has been discouraged. Weight loss has also been recommended, as the patient is obese. Compression has been recommended as well, using at least 20-30 mmHg compression. The patient has been encouraged to utilize his graduated compression stockings of 20-30 mmHg compression, as much as possible. Alternatively, a double or triple layer of Tubigrip's will be utilized. Collagenase Santyl is to be continued topically. Serial debridements appear warranted, and will continue. We have cultured the chronic left calf wounds, and will await the results of aerobic and anaerobic cultures. We have discussed the role of endovenous laser ablation of the incompetent veins in the left lower extremity. It is felt that the patient's pre-existing venous disease, which is severe in nature, it is likely accounting for the delay in healing of his traumatic left calf wounds. The indications and risks of endovenous laser ablation of the left great saphenous vein, the left small saphenous vein, and the left accessory saphenous vein have been discussed with the patient in detail. It is evident that conservative treatment measures have been unsuccessful in achieving successful healing of his left calf wounds. Addressing the issues related to his chronic venous disease will likely create a more favorable environment for wound healing, and would be expected to expedite the healing process. The patient wishes for preauthorization to be initiated. In the meantime, the patient will continue under the care of the patient's current wound center provider. The patient has obtained mechanical pneumatic compression pumps, which will be utilized several times daily. The patient is not a smoker. Influenza vaccine was not administered today. The patient weighs 325 pounds. He stands 6 feet 3 inches tall. His BMI is 40.6. Weight loss has been recommended, and the patient has been advised to collaborate with his primary care physician in this regard.
--- NOTE | 2018-10-07 08:52 | HP.PCM_ITS ---
(1) Chronic venous insufficiency Status: Chronic Current Visit: Yes Code(s): I87.2 - Venous insufficiency (chronic) (peripheral) (2) Venous hypertension, chronic, with ulcer and inflammation Status: Chronic Current Visit: Yes Qualifiers: Laterality: left Qualified Code(s): I87.332 - Chronic venous hypertension (idiopathic) with ulcer and inflammation of left lower extremity; L97.929 - Non- pressure chronic ulcer of unspecified part of left lower leg with unspecified severity Code(s): I87.339 - Chronic venous hypertension (idiopathic) with ulcer and inflammation of unspecified lower extremity; L97.909 - Non-pressure chronic ulcer of unspecified part of unspecified lower leg with unspecified severity (3) Varicose veins with ulcer and inflammation Status: Chronic Current Visit: Yes Code(s): I83.209 - Varicose veins of unspecified lower extremity with both ulcer of unspecified site and inflammation; L97.909 - Non-pressure chronic ulcer of unspecified part of unspecified lower leg with unspecified severity (4) Venous stasis ulcer Status: Chronic Current Visit: Yes Qualifiers: Venous stasis ulcer site: calf Varicose vein presence: with varicose veins Laterality: left Non-pressure ulcer stage: with fat layer exposed Qualified Code(s): I83.022 - Varicose veins of left lower extremity with ulcer of calf; L97.222 - Non-pressure chronic ulcer of left calf with fat layer exposed Code(s): I83.009 - Varicose veins of unspecified lower extremity with ulcer of unspecified site; L97.909 - Non-pressure chronic ulcer of unspecified part of unspecified lower leg with unspecified severity (5) Leg swelling Status: Acute Current Visit: Yes Code(s): M79.89 - Other specified soft tissue disorders (6) Lipodermatosclerosis Status: Chronic Current Visit: Yes Code(s): I83.10 - Varicose veins of unspecified lower extremity with inflammation (7) Hyperpigmentation Status: Chronic Current Visit: Yes Code(s): L81.9 - Disorder of pigmentation, unspecified (8) Edema of both lower extremities Status: Chronic Current Visit: Yes Code(s): R60.0 - Localized edema (9) History of vein stripping Status: Chronic Current Visit: Yes Code(s): Z98.890 - Other specified postprocedural states (10) Non-healing wound of lower extremity Status: Chronic Current Visit: Yes Qualifiers: Encounter type: initial encounter Laterality: left Qualified Code(s): S81.802A - Unspecified open wound, left lower leg, initial encounter Code(s): S81.809A - Unspecified open wound, unspecified lower leg, initial encounter (11) Venous insufficiency of left lower extremity Status: Chronic Current Visit: Yes Code(s): I87.2 - Venous insufficiency (chronic) (peripheral) History of Present Illness Chief Complaint: Chronic venous insufficiency; venous hypertension with ulceration and inflammation; varicose veins with ulceration and inflammation; leg swelling; leg edema; nonhealing wound of left lower extremity caused by dog scratch- March 2018. History of Wound: This is an otherwise healthy 43-year-old male who has a long- standing history of chronic venous insufficiency, left lower extremity venous hypertension, chronic venous insufficiency, as well as swelling and edema in the left lower extremity. The patient has had approximately 10 years of symptoms in his left lower extremity, which include pain, as well as chronic skin changes such as lipodermatosclerosis and hyperpigmentation. He denies a history of thrombophlebitis. Patient sustained a left lower leg wound caused by a scratch from his dog in March 2018. He ended up hospitalized with cellulitis and had IV antibiotics for MRSA at [facility]. Since March he has been on Keflex for MSSA. He has been treated at our wound center for several months, and is currently being treated with collagenase Santyl topically, and compression to his left lower extremity. He has been treated by conservative measures for many years relative to his chronic venous disease. He has been wearing prescription graduated compression stockings of 20-30 mmHg compression for many years as well. He claims that the compression stockings are painful to wear, and has been using a 2 or 3 layer Tubigrip to his left lower extremity in recent weeks. He has just recently obtained mechanical pneumatic compression pumps, which he is to use several times daily on his left lower extremity. He has a long- standing history of swelling and edema in his left lower extremity, typically worse at the end of the day. 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 He has previously undergone left lower extremity vein stripping in the remote past, approximately 20 years ago. The procedure was performed in a suburban of [place], [place], and the precise nature of the procedure is unknown. Venous duplex examination was performed on July 22, 2018, revealing incompetence of the left great saphenous vein in the thigh, apparent absence of the left great saphenous vein in the mid leg, and incompetence of the left great saphenous vein in the lower calf and ankle. He has been applying Neosporin to the site. Patient has a history of vein stripping 15 years ago of that left leg. He has a history of venous stasis. He has significant amount of edema of his lower extremities. Patient has compression stockings that he has not been wearing due to the significant amount of pain of his left lower extremity wound, but has been wearing several layers of Tubigrip's. Patient is obese. Denies smoking. Patient is on his feet standing for 10-15 hours per day. The patient has been evaluated on an outpatient basis by Dr. Devyn Carrillo, vascular surgeon, who recommended reevaluation and possible endothermal venous ablation at a later date, once the patient's left lower extremity ulceration/wound has healed. Patient is scheduled to return to Dr. Carrillo for evaluation in several months. Despite conservative treatment measures implemented at our wound center, patient is shown little progress, and request has been made for a second opinion and further recommendations. Patient sustained a left lower leg wound caused by a scratch from his dog in March 2018. He ended up hospitalized with cellulitis and had IV antibiotics for MRSA at [facility]. Since March he has been on Keflex for MSSA. He has been treated at our wound center for several months, and is currently being treated with collagenase Santyl topically, and compress ion to his left lower extremity. He has been treated by conservative measures for many years relative to his chronic venous disease. He has been wearing prescription graduated compression stockings of 20-30 mmHg compression for many years as well. He claims that the compression stockings are painful to wear, and has been using a 2 or 3 layer Tubigrip to his left lower extremity in recent weeks. He has just recently obtained mechanical pneumatic compression pumps, which she is to use several times daily on his left lower extremity. He has a long-standing history of swelling and edema in his left lower extremity, typically worse at the end of the day. 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 He has previously undergone left lower extremity vein stripping in the remote past, approximately 20 years ago. The procedure was performed in a suburban of [place], [place], and the precise nature of the procedure is unknown. Venous duplex examination was performed on July 22, 2018, revealing incompetence of the left great saphenous vein in the thigh, apparent absence of the left great saphenous vein in the mid leg, and incompetence of the left great saphenous vein in the lower calf and ankle. The left accessory saphenous vein is also noted to be incompetent, as is the left small saphenous vein. There is an incompetent left calf process safety specialist vein located 7 cm proximal to the left medial malleolus. He has been applying Neosporin to the site. Patient has a history of vein stripping 15 years ago of that left leg. He has a history of venous stasis. He has significant amount of edema of his lower extremities. Patient has compression stockings that he has not been wearing due to the significant amount of pain of his left lower extremity wound. Patient is obese. Denies smoking. Patient is on his feet standing for 10-15 hours per day. Redundancy noted in this report is due to errors created by [employer], which may also account for omissions in this dictated report. Past Medical History Past Medical History: Chronic Problems Non-healing wound of lower extremity (Chronic) Venous insufficiency of left lower extremity (Chronic) History of vein stripping (Chronic) Edema of both lower extremities (Chronic) Chronic venous insufficiency (Chronic) Venous hypertension, chronic, with ulcer and inflammation (Chronic) Varicose veins with ulcer and inflammation (Chronic) Venous stasis ulcer (Chronic) Lipodermatosclerosis (Chronic) Hyperpigmentation (Chronic) Past Medical History: Patient's history is negative for myocardial infarction, congestive heart failure, cerebrovascular accident, hypertension, pulmonary disease, renal disease, hyperlipidemia, and thyroid disease. Surgical History: - - The patient has had bilateral knee arthroscopies on several occasions. He has also undergone a vein stripping procedure in the left lower extremity approximately 20 years ago, the nature of which is uncertain. Allergies/Adverse Reactions: Allergies shrimp Allergy (Verified 07/17/18 10:06) Unknown - Family History Maternal Hypertension Social History: Patient denies tobacco use. He consumes alcoholic beverages socially. He is . 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 Lives: Spouse/ Significant Other Smoking Status: Never smoker Tobacco Use: Non-smoker Alcohol: None Drugs: None Review of Systems Constitutional: Denies: Chills, Fever, Weight Change Eyes: Denies: Pain, Vision Change HEENT: Denies: Difficulty Hearing, Difficulty Swallowing, Sinus Congestion Cardiovascular: Denies: Chest Pain, Palpitations Respiratory: Denies: Cough, Shortness of Breath Gastrointestinal: Denies: Diarrhea, Nausea, Vomiting Genitourinary: Denies: Dysuria, Hematuria Endocrine: Denies: Heat/ Cold Intolerance, Polydipsia, Polyuria Hematologic/ Lymphatic: Denies: Easy Bruising, Easy Bleeding - Physical Exam Vital Signs Temp Pulse Resp BP 96.8 F L 83 18 139/81 H 10/07/18 08:07 10/07/18 08:07 10/07/18 08:07 10/07/18 08:07 General: Alert, Oriented x3, Cooperative, No apparent distress, Well developed, Well nourished, - - The patient is obese HEENT: Atraumatic, PERRLA, EOMI, Normocephalic Oral: Moist Mucosa, No Gingival or Mucosal Lesions/ Ulcerations Neck: Supple, No JVD, Negative Carotid Bruits, Negative Hepatojugular Reflux, No Nodes, No Nuchal Rigidity, Trachea Midline Lungs: Clear to auscultation, Normal air movement, No rhonchi, No wheeze, No rales Cardiovascular: Regular rate, Regular Rhythm, Normal S1, Normal S2, No murmurs Abdomen: Soft, Non Tender, Non-Distended Extremities: No clubbing, No cyanosis, No Calf Tenderness, Edema - Mild swelling and edema is noted in the left lower extremity. Significant skin changes are noted in the left gaiter area as well, including lipodermatosclerosis and hyperpigmentation. There are 2 adjacent ulcers on the left lateral calf. The ulcer dimensions are documented elsewhere. There is no obvious sign of infection or cellulitis. The base of each ulceration is pink and healthy in appearance, with a moderate amount of bioburden., - Wound Measurements and Assessment WC - Nurse 1 - General Ulcer Measurement Start: 09/23/18 15:38 Freq: Status: Active Protocol: Activity Type Activity Date Activity User E-Sign Co-Sign Detail Recorded Client Recorded Date Recorded By Document 10/07/18 08:07 [id number] 10/07/18 08:09 10/07/18 08:07 Wound Center Nurse 1 [Ulcer Assessment] 2-left inferior moralez -Combined with other wound No -Current Size (cm) - Length 1.0 -Current Size (cm) - Width 1.1 -Current Size (cm) - Depth 0.1 -Total Square Cm 1.10 -Photo Taken No -Epithelialization Small 1-33% -Tunneling No -Undermining/Tunneling No -Circular Undermining No -Exudate Amt Small (1-33%) -Exudate Type Serosanguineous -Wound Margin Flat & Intact -Granulation Amt Large (67-100%) -Granulation Quality Red -Slough/Fibrin Yes -Necrosis Amt Small (1-33%) -Necrotic Tissue Type Adherent Slough -Structure Exposed N/A -Texture (Adali-wound Skin Appearance) Assessed Localized Edema -Moisture (Adali-wound Skin Appearance Assessed ) Dry/Scaly -Color (Adali-wound Skin Appearance) Assessed Hemosiderin Staining -Temperature (Adali-wound Skin No Abnormality Appearance) (Pt Warm) -Tenderness on Palpation (Adali-wound No Skin Appearance) -Ulcer Cleansing Wound Cleanser -Foul Odor after Cleansing No -Anesthetic Used 5% Lidocaine Gel #1 Left superior moralez -Combined with other wound No -Current Size (cm) - Length 2.3 -Current Size (cm) - Width 1.7 -Current Size (cm) - Depth 0.1 -Total Square Cm 3.91 -Photo Taken No -Epithelialization Small 1-33% -Tunneling No -Undermining/Tunneling No -Circular Undermining No -Exudate Amt Small (1-33%) -Exudate Type Serosanguineous -Wound Margin Flat & Intact -Granulation Amt Large (67-100%) -Granulation Quality Red -Slough/Fibrin Yes -Necrosis Amt Small (1-33%) -Necrotic Tissue Type Adherent Slough -Structure Exposed N/A -Texture (Adali-wound Skin Appearance) Assessed Localized Edema -Moisture (Adali-wound Skin Appearance Assessed ) Dry/Scaly -Color (Adali-wound Skin Appearance) Assessed Hemosiderin Staining -Temperature (Adali-wound Skin No Abnormality Appearance) (Pt Warm) -Tenderness on Palpation (Adali-wound No Skin Appearance) -Ulcer Cleansing Wound Cleanser -Foul Odor after Cleansing No -Anesthetic Used 5% Lidocaine Gel [Edema Assessment] -Lower Limb Edema Present Yes -Left Calf (cm) 48.0 -Left Ankle (cm) 27.5 WC - Nurse 2 - General Ulcer CM Notes Start: 09/23/18 15:38 Freq: Status: Active Protocol: Activity Type Activity Date Activity User E-Sign Co-Sign Detail Recorded Client Recorded Date Recorded By Document 10/07/18 08:26 DV [id number] 10/07/18 08:40 DV 10/07/18 08:26 Wound Center Nurse 2 [Procedure/Treatment] 2-left inferior moralez -Time 08:32 -Correct Patient Yes -Correct Side, Site, Position Yes -Correct Procedure Yes -Procedure Performed Yes -Type of Procedure Debridement -Clinical Debridement Subcutaneous -Post Debridement Size (cm) - Length 1.1 -Post Debridement Size (cm) - Width 1.2 -Post Debridement Size (cm) - Depth 0.1 -Total Square Cm 1.32 -Wound/Ulcer Outcome Not Healed -Ulcer Cleansing Rinsed/ Irrigated with Saline -Foul Odor after Cleansing No -Bioengineered Tissue No -Bleeding Controlled with Pressure -Offloading No -Treatment Response Procedure Tolerated Well #1 Left superior moralez -Time 08:32 -Correct Patient Yes -Correct Side, Site, Position Yes -Correct Procedure Yes -Procedure Performed Yes -Type of Procedure Debridement -Clinical Debridement Subcutaneous -Post Debridement Size (cm) - Length 2.5 -Post Debridement Size (cm) - Width 1.8 -Post Debridement Size (cm) - Depth 0.1 -Total Square Cm 4.50 -Wound/Ulcer Outcome Not Healed -Ulcer Cleansing Rinsed/ Irrigated with Saline -Foul Odor after Cleansing No -Bioengineered Tissue No -Bleeding Controlled with Pressure -Offloading No -Treatment Response Procedure Tolerated Well [See Physician Procedure note for Specifics] Pain Scale: 0-10 Numeric [Pain] -Is Patient Pain Free? Yes Musculoskeletal: No Muscle Wasting Neurological: Cranial nerves II-XII grossly intact, Neuro grossly intact Psych/Mental Status: Normal Affect, Appropriate, Alert and oriented to time, place, person, mood and affect Debridement Note Post-Debridement Measurements/Treatment SILVANO - Nurse 2 - General Ulcer CM Notes Start: 09/23/18 15:38 Freq: Status: Active Protocol: Activity Type Activity Date Activity User E-Sign Co-Sign Detail Recorded Client Recorded Date Recorded By Document 09/23/18 15:54 [id number] 09/23/18 15:55 Document 09/30/18 16:26 [id number] 09/30/18 16:29 Document 10/07/18 08:26 DV [id number] 10/07/18 08:40 DV 09/23/18 09/30/18 10/07/18 15:54 16:26 08:26 Wound Center Nurse 2 2-left inferior moralez -Time 15:54 16:27 08:32 -Correct Patient Yes Yes Yes -Correct Side, Site, Position Yes Yes Yes -Correct Procedure Yes Yes Yes -Procedure Performed Yes Yes Yes -Type of Procedure Debridement Debridement Debridement -Clinical Debridement Subcutaneous Subcutaneous Subcutaneous -Post Debridement Size (cm) - Length 1.1 1.6 1.1 -Post Debridement Size (cm) - Width 1.4 1.2 1.2 -Post Debridement Size (cm) - Depth 0.1 0.2 0.1 -Total Square Cm 1.54 1.92 1.32 -Wound/Ulcer Outcome Not Healed Not Healed Not Healed -Ulcer Cleansing Rinsed/ Rinsed/ Rinsed/ Irrigated with Irrigated with Irrigated with Saline Saline Saline -Foul Odor after Cleansing No No No -Bioengineered Tissue No No No -Bleeding Controlled with Pressure Pressure Pressure -Offloading No No No -Treatment Response Procedure Procedure Procedure Tolerated Well Tolerated Well Tolerated Well #1 Left superior moarlez -Time 15:54 16:27 08:32 -Correct Patient Yes Yes Yes -Correct Side, Site, Position Yes Yes Yes -Correct Procedure Yes Yes Yes -Procedure Performed Yes Yes Yes -Type of Procedure Debridement Debridement Debridement -Clinical Debridement Subcutaneous Subcutaneous Subcutaneous -Post Debridement Size (cm) - Length 1.9 1.9 2.5 -Post Debridement Size (cm) - Width 1.5 1.5 1.8 -Post Debridement Size (cm) - Depth 0.2 0.2 0.1 -Total Square Cm 2.85 2.85 4.50 -Wound/Ulcer Outcome Not Healed Not Healed Not Healed -Ulcer Cleansing Rinsed/ Rinsed/ Rinsed/ Irrigated with Irrigated with Irrigated with Saline Saline Saline -Foul Odor after Cleansing No No No -Bioengineered Tissue No No No -Bleeding Controlled with Pressure Pressure Pressure -Offloading No No No -Treatment Response Procedure Procedure Procedure Tolerated Well Tolerated Well Tolerated Well Pain Scale: 0-10 Numeric Is Patient Pain Free? Yes Yes Yes Laterality: Left - Lateral calf Type of Debridement: Excisional debridement Anesthesia Used: 5% Lidocaine Gel Depth: Down to and including healthy tissue, in the subcutaneous layer Percentage of wound debrided: 100 Instrument Used: 7mm curette Severity: Fat Layer Exposed Amount of bleeding with debridement: Mild Bleeding Controlled with: Compression and gauze Patient tolerated procedure well Assessment/Plan Active Problems Non-healing wound of lower extremity (Chronic) Venous insufficiency of left lower extremity (Chronic) History of vein stripping (Chronic) Edema of both lower extremities (Chronic) Nerve pain (Acute) Chronic venous insufficiency (Chronic) Venous hypertension, chronic, with ulcer and inflammation (Chronic) Varicose veins with ulcer and inflammation (Chronic) Venous stasis ulcer (Chronic) Leg swelling (Acute) Lipodermatosclerosis (Chronic) Hyperpigmentation (Chronic) Assessment: This is a 43-year-old generally healthy white male with severe chronic venous insufficiency, and clinical manifestations related to his chronic venous disease. His 2 left lateral calf ulcerations have failed to heal, despite implemented conservative treatment measures to date. The healing delay appears related to the patient's chronic venous insufficiency, venous hypertension with inflammation, varicose veins with inflammation, etc. 1. Non- healing wound of lower extremity (Acute). 2. Venous insufficiency of left lower extremity (Chronic). 3. History of vein stripping (Chronic). 4. Edema of both lower extremities (Chronic) Plan: Conservative treatment measures relative to the patient's chronic disc disease have been discussed thoroughly. The patient is to elevate his lower extremities much as possible. Leg elevation is to be to heart level, or higher. This is to be accomplished even during daytime hours. The patient is to continue sleeping on a flat mattress at night. Activity has been encouraged. Prolonged idle standing and sitting has been discouraged. Weight loss has also been recommended, as the patient is obese. Compression has been recommended as well, using at least 20-30 mmHg compression. The patient has been encouraged to utilize his graduated compression stockings of 20-30 mmHg compression, as much as possible. Alternatively, a double or triple layer of Tubigrip's will be utilized. Collagenase Santyl is to be continued topically. Serial debridements appear warranted, and will continue. We have cultured the chronic left calf wounds, and will await the results of aerobic and anaerobic cultures. We have discussed the role of endovenous laser ablation of the incompetent veins in the left lower extremity. It is felt that the patient's pre-existing venous disease, which is severe in nature, it is likely accounting for the delay in healing of his traumatic left calf wounds. The indications and risks of endovenous laser ablation of the left great saphenous vein, the left small saphenous vein, and the left accessory saphenous vein have been discussed with the patient in detail. It is evident that conservative treatment measures have been unsuccessful in achieving successful healing of his left calf wounds. Addressing the issues related to his chronic venous disease will likely create a more favorable environment for wound healing, and would be expected to expedite the healing process. The patient wishes for preauthorization to be initiated. In the meantime, the patient will continue under the care of the patient's current wound center provider. The patient has obtained mechanical pneumatic compression pumps, which will be utilized several times daily. The patient is not a smoker. Influenza vaccine was not administered today. The patient weighs 325 pounds. He stands 6 feet 3 inches tall. His BMI is 40.6. Weight loss has been recommended, and the patient has been advised to collaborate with his primary care physician in this regard.
[2018-10-07 16:57] LABS: M R Staph aureus DNA By PCR Negative (Negative); Probe Check PASS; Specimen Processing Control PASS; Staph aureus DNA By PCR POSITIVE (Negative)
[2018-10-20 08:45] VITALS: BP 146/86; PULSE 74; RESP 18; TEMP 36.4
--- NOTE | 2018-10-22 14:38 | PCM.WC.PN ---
(1) Non-healing wound of lower extremity Status: Acute Qualifiers: Encounter type: initial encounter Laterality: left Qualified Code(s): S81.802A - Unspecified open wound, left lower leg, initial encounter Code(s): S81.809A - Unspecified open wound, unspecified lower leg, initial encounter (2) Venous insufficiency of left lower extremity Status: Chronic Code(s): I87.2 - Venous insufficiency (chronic) (peripheral) (3) History of vein stripping Status: Chronic Code(s): Z98.890 - Other specified postprocedural states (4) Edema of both lower extremities Status: Chronic Code(s): R60.0 - Localized edema (5) Nerve pain Status: Chronic Code(s): M79.2 - Neuralgia and neuritis, unspecified Type of Wound Date of Service: 10/20/18 Chief Complaint: Chronic venous insufficiency; venous hypertension with ulceration and inflammation; varicose veins with ulceration and inflammation; leg swelling; leg edema; nonhealing wound of left lower extremity caused by dog scratch- March 2018. History of Wound: This is an otherwise healthy 43-year-old male who has a long-standing history of chronic venous insufficiency, left lower extremity venous hypertension, chronic venous insufficiency, as well as swelling and edema in the left lower extremity. The patient has had approximately 10 years of symptoms in his left lower extremity, which include pain, as well as chronic skin changes such as lipodermatosclerosis and hyperpigmentation. He denies a history of thrombophlebitis. Patient sustained a left lower leg wound caused by a scratch from his dog in March 2018. He ended up hospitalized with cellulitis and had IV antibiotics for MRSA at [facility]. Since March he has been on Keflex for MSSA. He has been treated at our wound center for several months, and is currently being treated with collagenase Santyl topically, and compression to his left lower extremity. He has been treated by conservative measures for many years relative to his chronic venous disease. He has been wearing prescription graduated compression stockings of 20-30 mmHg compression for many years as well. He claims that the compression stockings are painful to wear, and has been using a 2 or 3 layer Tubigrip to his left lower extremity in recent weeks. He has just recently obtained mechanical pneumatic compression pumps, which he is to use several times daily on his left lower extremity. He has a long-standing history of swelling and edema in his left lower extremity, typically worse at the end of the day. 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 He has previously undergone left lower extremity vein stripping in the remote past, approximately 20 years ago. The procedure was performed in a suburban of [place], [place], and the precise nature of the procedure is unknown. Venous duplex examination was performed on July 22, 2018, revealing incompetence of the left great saphenous vein in the thigh, apparent absence of the left great saphenous vein in the mid leg, and incompetence of the left great saphenous vein in the lower calf and ankle. He has been applying Neosporin to the site. Patient has a history of vein stripping 15 years ago of that left leg. He has a history of venous stasis. He has significant amount of edema of his lower extremities. Patient has compression stockings that he has not been wearing due to the significant amount of pain of his left lower extremity wound, but has been wearing several layers of Tubigrip's. Patient is obese. Denies smoking. Patient is on his feet standing for 10-15 hours per day. The patient has been evaluated on an outpatient basis by Dr. Devyn Carrillo, vascular surgeon, who recommended reevaluation and possible endothermal venous ablation at a later date, once the patient's left lower extremity ulceration/wound has healed. Patient is scheduled to return to Dr. Carrillo for evaluation in several months. Despite conservative treatment measures implemented at our wound center, patient is shown little progress, and request has been made for a second opinion and further recommendations. Patient sustained a left lower leg wound caused by a scratch from his dog in March 2018. He ended up hospitalized with cellulitis and had IV antibiotics for MRSA at [facility]. Since March he has been on Keflex for MSSA. He has been treated at our wound center for several months, and is currently being treated with collagenase Santyl topically, and compression to his left lower extremity. He has been treated by conservative measures for many years relative to his chronic venous disease. He has been wearing prescription graduated compression stockings of 20-30 mmHg compression for many years as well. He claims that the compression stockings are painful to wear, and has been using a 2 or 3 layer Tubigrip to his left lower extremity in recent weeks. He has just recently obtained mechanical pneumatic compression pumps, which she is to use several times daily on his left lower extremity. He has a long-standing history of swelling and edema in his left lower extremity, typically worse at the end of the day. 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 He has previously undergone left lower extremity vein stripping in the remote past, approximately 20 years ago. The procedure was performed in a suburban of [place], [place], and the precise nature of the procedure is unknown. Venous duplex examination was performed on July 22, 2018, revealing incompetence of the left great saphenous vein in the thigh, apparent absence of the left great saphenous vein in the mid leg, and incompetence of the left great saphenous vein in the lower calf and ankle. The left accessory saphenous vein is also noted to be incompetent, as is the left small saphenous vein. There is an incompetent left calf cdl instructor vein located 7 cm proximal to the left medial malleolus. He has been applying Neosporin to the site. Patient has a history of vein stripping 15 years ago of that left leg. He has a history of venous stasis. He has significant amount of edema of his lower extremities. Patient has compression stockings that he has not been wearing due to the significant amount of pain of his left lower extremity wound. Patient is obese. Denies smoking. Patient is on his feet standing for 10-15 hours per day. Redundancy noted in this report is due to errors created by Surendra, which may also account for omissions in this dictated report. Progress of Wound: Improvement. Continues to have lower extremity edema. - Physical Exam Vital Signs Temp Pulse Resp BP 97.5 F L 74 18 146/86 H 10/20/18 08:45 10/20/18 08:45 10/20/18 08:45 10/20/18 08:45 General: Alert, Oriented x3, Cooperative HEENT: Atraumatic, PERRLA Lungs: Normal air movement Extremities: Capillary Refill Less than 3 Seconds, Diminished Peripheral Pulses, Edema Skin: Ulcer/ Wound - Left lower leg anterior and left lateral lower leg Wound Measurements and Assessment WC - Nurse 1 - General Ulcer Measurement Start: 09/23/18 15:38 Freq: Status: Active Protocol: Activity Type Activity Date Activity User E-Sign Co-Sign Detail Recorded Client Recorded Date Recorded By Document 10/20/18 08:45 RB [id number] 10/20/18 08:55 RB 10/20/18 08:45 Wound Center Nurse 1 [Ulcer Assessment] 2-left inferior moralez -Combined with other wound No -Current Size (cm) - Length 0.7 -Current Size (cm) - Width 1 -Current Size (cm) - Depth 0.1 -Total Square Cm 0.7 -Photo Taken No -Tunneling No -Undermining/Tunneling No -Circular Undermining No -Exudate Amt Small (1-33%) -Exudate Type Serosanguineous -Wound Margin Distinct, Outline Attached -Granulation Amt Large (67-100%) -Granulation Quality [place] Red -Slough/Fibrin Yes -Necrosis Amt Small (1-33%) -Necrotic Tissue Type Adherent Slough -Structure Exposed N/A -Texture (Adali-wound Skin Appearance) Assessed -Moisture (Adali-wound Skin Appearance Assessed ) -Color (Adali-wound Skin Appearance) Assessed -Temperature (Adali-wound Skin No Abnormality Appearance) (Pt Warm) -Tenderness on Palpation (Adali-wound No Skin Appearance) -Ulcer Cleansing Rinsed/ Irrigated with Saline -Foul Odor after Cleansing No -Anesthetic Used 4% Lidocaine Solution 5% Lidocaine Gel #1 Left superior moralez -Combined with other wound No -Current Size (cm) - Length 1.9 -Current Size (cm) - Width 1.4 -Current Size (cm) - Depth 0.1 -Total Square Cm 2.66 -Photo Taken No -Tunneling No -Undermining/Tunneling No -Circular Undermining No -Exudate Amt Small (1-33%) -Exudate Type Serosanguineous -Wound Margin Distinct, Outline Attached -Granulation Amt Large (67-100%) -Granulation Quality [place] Red -Slough/Fibrin Yes -Necrosis Amt Small (1-33%) -Necrotic Tissue Type Adherent Slough -Structure Exposed N/A -Texture (Adali-wound Skin Appearance) Assessed -Moisture (Adali-wound Skin Appearance Assessed ) -Color (Adali-wound Skin Appearance) Assessed -Temperature (Adali-wound Skin No Abnormality Appearance) (Pt Warm) -Tenderness on Palpation (Adali-wound No Skin Appearance) -Ulcer Cleansing Rinsed/ Irrigated with Saline -Foul Odor after Cleansing No -Anesthetic Used 4% Lidocaine Solution 5% Lidocaine Gel [Edema Assessment] -Lower Limb Edema Present Yes -Left Calf (cm) 48.5 -Left Ankle (cm) 29 WC - Nurse 2 - General Ulcer CM Notes Start: 09/23/18 15:38 Freq: Status: Active Protocol: Activity Type Activity Date Activity User E-Sign Co-Sign Detail Recorded Client Recorded Date Recorded By Document 10/20/18 09:09 [id number] 10/20/18 09:10 10/20/18 09:09 Wound Center Nurse 2 [Procedure/Treatment] 2-left inferior moralez -Time 09:09 -Correct Patient Yes -Correct Side, Site, Position Yes -Correct Procedure Yes -Procedure Performed Yes -Type of Procedure Debridement -Clinical Debridement Subcutaneous -Post Debridement Size (cm) - Length 0.7 -Post Debridement Size (cm) - Width 1.1 -Post Debridement Size (cm) - Depth 0.1 -Total Square Cm 0.77 -Wound/Ulcer Outcome Not Healed -Ulcer Cleansing Rinsed/ Irrigated with Saline -Foul Odor after Cleansing No -Bioengineered Tissue No -Bleeding Controlled with Pressure -Offloading No -Treatment Response Procedure Tolerated Well #1 Left superior moralez -Time 09:10 -Correct Patient Yes -Correct Side, Site, Position Yes -Correct Procedure Yes -Procedure Performed Yes -Type of Procedure Debridement -Clinical Debridement Subcutaneous -Post Debridement Size (cm) - Length 1.4 -Post Debridement Size (cm) - Width 1.6 -Post Debridement Size (cm) - Depth 0.1 -Total Square Cm 2.24 -Wound/Ulcer Outcome Not Healed -Ulcer Cleansing Rinsed/ Irrigated with Saline -Foul Odor after Cleansing No -Bioengineered Tissue No -Bleeding Controlled with Pressure -Offloading No -Treatment Response Procedure Tolerated Well [See Physician Procedure note for Specifics] Pain Scale: 0-10 Numeric [Pain] -Is Patient Pain Free? Yes Neurological: Neuro grossly intact Psych/Mental Status: Normal Affect, Appropriate Debridement Note Post-Debridement Measurements/Treatment - Nurse 2 - General Ulcer CM Notes Start: 09/23/18 15:38 Freq: Status: Active Protocol: Activity Type Activity Date Activity User E-Sign Co-Sign Detail Recorded Client Recorded Date Recorded By Document 09/23/18 15:54 [id number] 09/23/18 15:55 Document 09/30/18 16:26 [id number] 09/30/18 16:29 Document 10/07/18 08:26 DV [id number] 10/07/18 08:40 DV Document 10/20/18 09:09 [id number] 10/20/18 09:10 09/23/18 09/30/18 10/07/18 15:54 16:26 08:26 Wound Center Nurse 2 2-left inferior moralez -Time 15:54 16:27 08:32 -Correct Patient Yes Yes Yes -Correct Side, Site, Position Yes Yes Yes -Correct Procedure Yes Yes Yes -Procedure Performed Yes Yes Yes -Type of Procedure Debridement Debridement Debridement -Clinical Debridement Subcutaneous Subcutaneous Subcutaneous -Post Debridement Size (cm) - Length 1.1 1.6 1.1 -Post Debridement Size (cm) - Width 1.4 1.2 1.2 -Post Debridement Size (cm) - Depth 0.1 0.2 0.1 -Total Square Cm 1.54 1.92 1.32 -Wound/Ulcer Outcome Not Healed Not Healed Not Healed -Ulcer Cleansing Rinsed/ Rinsed/ Rinsed/ Irrigated with Irrigated with Irrigated with Saline Saline Saline -Foul Odor after Cleansing No No No -Bioengineered Tissue No No No -Bleeding Controlled with Pressure Pressure Pressure -Offloading No No No -Treatment Response Procedure Procedure Procedure Tolerated Well Tolerated Well Tolerated Well #1 Left superior moralez -Time 15:54 16:27 08:32 -Correct Patient Yes Yes Yes -Correct Side, Site, Position Yes Yes Yes -Correct Procedure Yes Yes Yes -Procedure Performed Yes Yes Yes -Type of Procedure Debridement Debridement Debridement -Clinical Debridement Subcutaneous Subcutaneous Subcutaneous -Post Debridement Size (cm) - Length 1.9 1.9 2.5 -Post Debridement Size (cm) - Width 1.5 1.5 1.8 -Post Debridement Size (cm) - Depth 0.2 0.2 0.1 -Total Square Cm 2.85 2.85 4.50 -Wound/Ulcer Outcome Not Healed Not Healed Not Healed -Ulcer Cleansing Rinsed/ Rinsed/ Rinsed/ Irrigated with Irrigated with Irrigated with Saline Saline Saline -Foul Odor after Cleansing No No No -Bioengineered Tissue No No No -Bleeding Controlled with Pressure Pressure Pressure -Offloading No No No -Treatment Response Procedure Procedure Procedure Tolerated Well Tolerated Well Tolerated Well Pain Scale: 0-10 Numeric Is Patient Pain Free? Yes Yes Yes 10/20/18 09:09 Wound Center Nurse 2 2-left inferior moralez -Time 09:09 -Correct Patient Yes -Correct Side, Site, Position Yes -Correct Procedure Yes -Procedure Performed Yes -Type of Procedure Debridement -Clinical Debridement Subcutaneous -Post Debridement Size (cm) - Length 0.7 -Post Debridement Size (cm) - Width 1.1 -Post Debridement Size (cm) - Depth 0.1 -Total Square Cm 0.77 -Wound/Ulcer Outcome Not Healed -Ulcer Cleansing Rinsed/ Irrigated with Saline -Foul Odor after Cleansing No -Bioengineered Tissue No -Bleeding Controlled with Pressure -Offloading No -Treatment Response Procedure Tolerated Well #1 Left superior moralez -Time 09:10 -Correct Patient Yes -Correct Side, Site, Position Yes -Correct Procedure Yes -Procedure Performed Yes -Type of Procedure Debridement -Clinical Debridement Subcutaneous -Post Debridement Size (cm) - Length 1.4 -Post Debridement Size (cm) - Width 1.6 -Post Debridement Size (cm) - Depth 0.1 -Total Square Cm 2.24 -Wound/Ulcer Outcome Not Healed -Ulcer Cleansing Rinsed/ Irrigated with Saline -Foul Odor after Cleansing No -Bioengineered Tissue No -Bleeding Controlled with Pressure -Offloading No -Treatment Response Procedure Tolerated Well Pain Scale: 0-10 Numeric Is Patient Pain Free? Yes Wound debrided: Left lower medial leg Laterality: Left Type of Debridement: Excisional debridement Anesthesia Used: 4% Lidocaine Solution Depth: Down to and including healthy tissue, in the subcutaneous layer Percentage of wound debrided: 100 Instrument Used: 7mm curette Tissue Removed: Subcutaneous tissue and slough Severity: Limited To Skin Breakdown Amount of bleeding with debridement: Mild Bleeding Controlled with: Pressure Patient tolerated procedure well - Additional Wound Wound debrided: Left lower lateral leg Laterality: Left Type of Debridement: Excisional debridement Anesthesia Used: 4% Lidocaine Solution Depth: Down to and including healthy tissue, in the subcutaneous layer Percentage of wound debrided: 100 Instrument Used: 7mm curette Tissue Removed: Subcutaneous tissue and slough Severity: Limited To Skin Breakdown Amount of bleeding with debridement: Mild Bleeding Controlled with: Pressure Patient tolerated procedure: Patient tolerated procedure well Assessment/Plan Assessment: This is a 43-year-old generally healthy white male with severe chronic venous insufficiency, and clinical manifestations related to his chronic venous disease. His 2 left lateral calf ulcerations have failed to heal, despite implemented conservative treatment measures to date. The healing delay appears related to the patient's chronic venous insufficiency, venous hypertension with inflammation, varicose veins with inflammation, etc. 1. Non-healing wound of lower extremity (Acute). 2. Venous insufficiency of left lower extremity (Chronic). 3. History of vein stripping (Chronic). 4. Edema of both lower extremities (Chronic) Plan: Patient saw Dr. Fountain for venous evaluation a couple weeks ago. He recommends: The patient is to elevate his lower extremities much as possible. Leg elevation is to be to heart level, or higher. This is to be accomplished even during daytime hours. The patient is to continue sleeping on a flat mattress at night. Activity has been encouraged. Prolonged idle standing and sitting has been discouraged. Weight loss has also been recommended, as the patient is obese. Compression has been recommended as well, using at least 20-30 mmHg compression. The patient has been encouraged to utilize his graduated compression stockings of 20-30 mmHg compression, as much as possible. Alternatively, a double or triple layer of Tubigrip's will be utilized. We have discussed the role of endovenous laser ablation of the incompetent veins in the left lower extremity. It is felt that the patient's pre-existing venous disease, which is severe in nature, it is likely accounting for the delay in healing of his traumatic left calf wounds. The indications and risks of endovenous laser ablation of the left great saphenous vein, the left small saphenous vein, and the left accessory saphenous vein have been discussed with the patient in detail. It is evident that conservative treatment measures have been unsuccessful in achieving successful healing of his left calf wounds. Addressing the issues related to his chronic venous disease will likely create a more favorable environment for wound healing, and would be expected to expedite the healing process. The patient wishes for Dr. Fountain to go ahead with the laser ablation. In the meantime, the patient will continue conservative treatment with Collagenase Santyl topically and debridements. On 10/07/18 His wound culture of his chronic left calf wounds, showed Staphylococcus areus, Streptococcus group C and A aero c cocc which he was started on Augmentin by Dr. Fountain. The patient has obtained mechanical pneumatic compression pumps, which he should by using several times daily. He will follow up in one week. Code Visit 111xxx-113xx: 22086 Greta subq tissue 20 sq cm/<
--- NOTE | 2018-10-22 14:43 | PN.PCM_ITS ---
(1) Non-healing wound of lower extremity Status: Acute Qualifiers: Encounter type: initial encounter Laterality: left Qualified Code(s): S81.802A - Unspecified open wound, left lower leg, initial encounter Code(s): S81.809A - Unspecified open wound, unspecified lower leg, initial encounter (2) Venous insufficiency of left lower extremity Status: Chronic Code(s): I87.2 - Venous insufficiency (chronic) (peripheral) (3) History of vein stripping Status: Chronic Code(s): Z98.890 - Other specified postprocedural states (4) Edema of both lower extremities Status: Chronic Code(s): R60.0 - Localized edema (5) Nerve pain Status: Chronic Code(s): M79.2 - Neuralgia and neuritis, unspecified Type of Wound Date of Service: 10/20/18 Chief Complaint: Chronic venous insufficiency; venous hypertension with ulceration and inflammation; varicose veins with ulceration and inflammation; leg swelling; leg edema; nonhealing wound of left lower extremity caused by dog scratch- March 2018. History of Wound: This is an otherwise healthy 43-year-old male who has a long-standing history of chronic venous insufficiency, left lower extremity venous hypertension, chronic venous insufficiency, as well as swelling and edema in the left lower extremity. The patient has had approximately 10 years of symptoms in his left lower extremity, which include pain, as well as chronic skin changes such as lipodermatosclerosis and hyperpigmentation. He denies a history of thrombophlebitis. Patient sustained a left lower leg wound caused by a scratch from his dog in March 2018. He ended up hospitalized with cellulitis and had IV antibiotics for MRSA at [facility]. Since March he has been on Keflex for MSSA. He has been treated at our wound center for several months, and is currently being treated with collagenase Santyl topically, and compression to his left lower extremity. He has been treated by conservative measures for many years relative to his chronic venous disease. He has been wearing prescription graduated compression stockings of 20-30 mmHg compression for many years as well. He claims that the compression stockings are painful to wear, and has been using a 2 or 3 layer Tubigrip to his left lower extremity in recent weeks. He has just recently obtained mechanical pneumatic compression pumps, which he is to use several times daily on his left lower extremity. He has a long-standing history of swelling and edema in his left lower extremity, typically worse at the end of the day. 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 He has previously undergone left lower extremity vein stripping in the remote past, approximately 20 years ago. The procedure was performed in a suburban of [place], [place], and the precise nature of the procedure is unknown. Venous duplex examination was performed on July 22, 2018, revealing incompetence of the left great saphenous vein in the thigh, apparent absence of the left great saphenous vein in the mid leg, and incompetence of the left great saphenous vein in the lower calf and ankle. He has been applying Neosporin to the site. Patient has a history of vein stripping 15 years ago of that left leg. He has a history of venous stasis. He has significant amount of edema of his lower extremities. Patient has compression stockings that he has not been wearing due to the significant amount of pain of his left lower extremity wound, but has been wearing several layers of Tubigrip's. Patient is obese. Denies smoking. Patient is on his feet standing for 10-15 hours per day. The patient has been evaluated on an outpatient basis by Dr. Devyn Carrillo, vascular surgeon, who recommended reevaluation and possible endothermal venous ablation at a later date, once the patient's left lower extremity ulceration/wound has healed. Patient is scheduled to return to Dr. Carrillo for evaluation in several months. Despite conservative treatment measures implemented at our wound center, patient is shown little progress, and request has been made for a second opinion and further recommendations. Patient sustained a left lower leg wound caused by a scratch from his dog in March 2018. He ended up hospitalized with cellulitis and had IV antibiotics for MRSA at [facility]. Since March he has been on Keflex for MSSA. He has been treated at our wound center for several months, and is currently being treated with collagenase Santyl topically, and compression to his left lower extremity. He has been treated by conservative measures for many years relative to his chronic venous disease. He has been wearing prescription graduated compression stockings of 20-30 mmHg compression for many years as well. He claims that the compression stockings are painful to wear, and has been using a 2 or 3 layer Tubigrip to his left lower extremity in recent weeks. He has just recently obtained mechanical pneumatic compression pumps, which she is to use several times daily on his left lower extremity. He has a long-standing history of swelling and edema in his left lower extremity, typically worse at the end of the day. 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 He has previously undergone left lower extremity vein stripping in the remote past, approximately 20 years ago. The procedure was performed in a suburban of [place], [place], and the precise nature of the procedure is unknown. Venous duplex examination was performed on July 22, 2018, revealing incompetence of the left great saphenous vein in the thigh, apparent absence of the left great saphenous vein in the mid leg, and incompetence of the left great saphenous vein in the lower calf and ankle. The left accessory saphenous vein is also noted to be incompetent, as is the left small saphenous vein. There is an incompetent left calf senior dynamics crm developer vein located 7 cm proximal to the left medial malleolus. He has been applying Neosporin to the site. Patient has a history of vein stripping 15 years ago of that left leg. He has a history of venous stasis. He has significant amount of edema of his lower extremities. Patient has compression stockings that he has not been wearing due to the significant amount of pain of his left lower extremity wound. Patient is obese. Denies smoking. Patient is on his feet standing for 10-15 hours per day. Redundancy noted in this report is due to errors created by Surendra, which may also account for omissions in this dictated report. Progress of Wound: Improvement. Continues to have lower extremity edema. - Physical Exam Vital Signs Temp Pulse Resp BP 97.5 F L 74 18 146/86 H 10/20/18 08:45 10/20/18 08:45 10/20/18 08:45 10/20/18 08:45 General: Alert, Oriented x3, Cooperative HEENT: Atraumatic, PERRLA Lungs: Normal air movement Extremities: Capillary Refill Less than 3 Seconds, Diminished Peripheral Pulses, Edema Skin: Ulcer/ Wound - Left lower leg anterior and left lateral lower leg Wound Measurements and Assessment WC - Nurse 1 - General Ulcer Measurement Start: 09/23/18 15:38 Freq: Status: Active Protocol: Activity Type Activity Date Activity User E-Sign Co-Sign Detail Recorded Client Recorded Date Recorded By Document 10/20/18 08:45 RB [id number] 10/20/18 08:55 RB 10/20/18 08:45 Wound Center Nurse 1 [Ulcer Assessment] 2-left inferior moralez -Combined with other wound No -Current Size (cm) - Length 0.7 -Current Size (cm) - Width 1 -Current Size (cm) - Depth 0.1 -Total Square Cm 0.7 -Photo Taken No -Tunneling No -Undermining/Tunneling No -Circular Undermining No -Exudate Amt Small (1-33%) -Exudate Type Serosanguineous -Wound Margin Distinct, Outline Attached -Granulation Amt Large (67-100%) -Granulation Quality [place] Red -Slough/Fibrin Yes -Necrosis Amt Small (1-33%) -Necrotic Tissue Type Adherent Slough -Structure Exposed N/A -Texture (Adali-wound Skin Appearance) Assessed -Moisture (Adali-wound Skin Appearance Assessed ) -Color (Adali-wound Skin Appearance) Assessed -Temperature (Adali-wound Skin No Abnormality Appearance) (Pt Warm) -Tenderness on Palpation (Adali-wound No Skin Appearance) -Ulcer Cleansing Rinsed/ Irrigated with Saline -Foul Odor after Cleansing No -Anesthetic Used 4% Lidocaine Solution 5% Lidocaine Gel #1 Left superior moralez -Combined with other wound No -Current Size (cm) - Length 1.9 -Current Size (cm) - Width 1.4 -Current Size (cm) - Depth 0.1 -Total Square Cm 2.66 -Photo Taken No -Tunneling No -Undermining/Tunneling No -Circular Undermining No -Exudate Amt Small (1-33%) -Exudate Type Serosanguineous -Wound Margin Distinct, Outline Attached -Granulation Amt Large (67-100%) -Granulation Quality [place] Red -Slough/Fibrin Yes -Necrosis Amt Small (1-33%) -Necrotic Tissue Type Adherent Slough -Structure Exposed N/A -Texture (Adali-wound Skin Appearance) Assessed -Moisture (Adali-wound Skin Appearance Assessed ) -Color (Adali-wound Skin Appearance) Assessed -Temperature (Adali-wound Skin No Abnormality Appearance) (Pt Warm) -Tenderness on Palpation (Adali-wound No Skin Appearance) -Ulcer Cleansing Rinsed/ Irrigated with Saline -Foul Odor after Cleansing No -Anesthetic Used 4% Lidocaine Solution 5% Lidocaine Gel [Edema Assessment] -Lower Limb Edema Present Yes -Left Calf (cm) 48.5 -Left Ankle (cm) 29 WC - Nurse 2 - General Ulcer CM Notes Start: 09/23/18 15:38 Freq: Status: Active Protocol: Activity Type Activity Date Activity User E-Sign Co-Sign Detail Recorded Client Recorded Date Recorded By Document 10/20/18 09:09 [id number] 10/20/18 09:10 10/20/18 09:09 Wound Center Nurse 2 [Procedure/Treatment] 2-left inferior moralez -Time 09:09 -Correct Patient Yes -Correct Side, Site, Position Yes -Correct Procedure Yes -Procedure Performed Yes -Type of Procedure Debridement -Clinical Debridement Subcutaneous -Post Debridement Size (cm) - Length 0.7 -Post Debridement Size (cm) - Width 1.1 -Post Debridement Size (cm) - Depth 0.1 -Total Square Cm 0.77 -Wound/Ulcer Outcome Not Healed -Ulcer Cleansing Rinsed/ Irrigated with Saline -Foul Odor after Cleansing No -Bioengineered Tissue No -Bleeding Controlled with Pressure -Offloading No -Treatment Response Procedure Tolerated Well #1 Left superior moralez -Time 09:10 -Correct Patient Yes -Correct Side, Site, Position Yes -Correct Procedure Yes -Procedure Performed Yes -Type of Procedure Debridement -Clinical Debridement Subcutaneous -Post Debridement Size (cm) - Length 1.4 -Post Debridement Size (cm) - Width 1.6 -Post Debridement Size (cm) - Depth 0.1 -Total Square Cm 2.24 -Wound/Ulcer Outcome Not Healed -Ulcer Cleansing Rinsed/ Irrigated with Saline -Foul Odor after Cleansing No -Bioengineered Tissue No -Bleeding Controlled with Pressure -Offloading No -Treatment Response Procedure Tolerated Well [See Physician Procedure note for Specifics] Pain Scale: 0-10 Numeric [Pain] -Is Patient Pain Free? Yes Neurological: Neuro grossly intact Psych/Mental Status: Normal Affect, Appropriate Debridement Note Post-Debridement Measurements/Treatment - Nurse 2 - General Ulcer CM Notes Start: 09/23/18 15:38 Freq: Status: Active Protocol: Activity Type Activity Date Activity User E-Sign Co-Sign Detail Recorded Client Recorded Date Recorded By Document 09/23/18 15:54 [id number] 09/23/18 15:55 Document 09/30/18 16:26 [id number] 09/30/18 16:29 Document 10/07/18 08:26 [id number] 10/07/18 08:40 DV Document 10/20/18 09:09 [id number] 10/20/18 09:10 09/23/18 09/30/18 10/07/18 15:54 16:26 08:26 Wound Center Nurse 2 2-left inferior moralez -Time 15:54 16:27 08:32 -Correct Patient Yes Yes Yes -Correct Side, Site, Position Yes Yes Yes -Correct Procedure Yes Yes Yes -Procedure Performed Yes Yes Yes -Type of Procedure Debridement Debridement Debridement -Clinical Debridement Subcutaneous Subcutaneous Subcutaneous -Post Debridement Size (cm) - Length 1.1 1.6 1.1 -Post Debridement Size (cm) - Width 1.4 1.2 1.2 -Post Debridement Size (cm) - Depth 0.1 0.2 0.1 -Total Square Cm 1.54 1.92 1.32 -Wound/Ulcer Outcome Not Healed Not Healed Not Healed -Ulcer Cleansing Rinsed/ Rinsed/ Rinsed/ Irrigated with Irrigated with Irrigated with Saline Saline Saline -Foul Odor after Cleansing No No No -Bioengineered Tissue No No No -Bleeding Controlled with Pressure Pressure Pressure -Offloading No No No -Treatment Response Procedure Procedure Procedure Tolerated Well Tolerated Well Tolerated Well #1 Left superior moralez -Time 15:54 16:27 08:32 -Correct Patient Yes Yes Yes -Correct Side, Site, Position Yes Yes Yes -Correct Procedure Yes Yes Yes -Procedure Performed Yes Yes Yes -Type of Procedure Debridement Debridement Debridement -Clinical Debridement Subcutaneous Subcutaneous Subcutaneous -Post Debridement Size (cm) - Length 1.9 1.9 2.5 -Post Debridement Size (cm) - Width 1.5 1.5 1.8 -Post Debridement Size (cm) - Depth 0.2 0.2 0.1 -Total Square Cm 2.85 2.85 4.50 -Wound/Ulcer Outcome Not Healed Not Healed Not Healed -Ulcer Cleansing Rinsed/ Rinsed/ Rinsed/ Irrigated with Irrigated with Irrigated with Saline Saline Saline -Foul Odor after Cleansing No No No -Bioengineered Tissue No No No -Bleeding Controlled with Pressure Pressure Pressure -Offloading No No No -Treatment Response Procedure Procedure Procedure Tolerated Well Tolerated Well Tolerated Well Pain Scale: 0-10 Numeric Is Patient Pain Free? Yes Yes Yes 10/20/18 09:09 Wound Center Nurse 2 2-left inferior moralez -Time 09:09 -Correct Patient Yes -Correct Side, Site, Position Yes -Correct Procedure Yes -Procedure Performed Yes -Type of Procedure Debridement -Clinical Debridement Subcutaneous -Post Debridement Size (cm) - Length 0.7 -Post Debridement Size (cm) - Width 1.1 -Post Debridement Size (cm) - Depth 0.1 -Total Square Cm 0.77 -Wound/Ulcer Outcome Not Healed -Ulcer Cleansing Rinsed/ Irrigated with Saline -Foul Odor after Cleansing No -Bioengineered Tissue No -Bleeding Controlled with Pressure -Offloading No -Treatment Response Procedure Tolerated Well #1 Left superior moralez -Time 09:10 -Correct Patient Yes -Correct Side, Site, Position Yes -Correct Procedure Yes -Procedure Performed Yes -Type of Procedure Debridement -Clinical Debridement Subcutaneous -Post Debridement Size (cm) - Length 1.4 -Post Debridement Size (cm) - Width 1.6 -Post Debridement Size (cm) - Depth 0.1 -Total Square Cm 2.24 -Wound/Ulcer Outcome Not Healed -Ulcer Cleansing Rinsed/ Irrigated with Saline -Foul Odor after Cleansing No -Bioengineered Tissue No -Bleeding Controlled with Pressure -Offloading No -Treatment Response Procedure Tolerated Well Pain Scale: 0-10 Numeric Is Patient Pain Free? Yes Wound debrided: Left lower medial leg Laterality: Left Type of Debridement: Excisional debridement Anesthesia Used: 4% Lidocaine Solution Depth: Down to and including healthy tissue, in the subcutaneous layer Percentage of wound debrided: 100 Instrument Used: 7mm curette Tissue Removed: Subcutaneous tissue and slough Severity: Limited To Skin Breakdown Amount of bleeding with debridement: Mild Bleeding Controlled with: Pressure Patient tolerated procedure well - Additional Wound Wound debrided: Left lower lateral leg Laterality: Left Type of Debridement: Excisional debridement Anesthesia Used: 4% Lidocaine Solution Depth: Down to and including healthy tissue, in the subcutaneous layer Percentage of wound debrided: 100 Instrument Used: 7mm curette Tissue Removed: Subcutaneous tissue and slough Severity: Limited To Skin Breakdown Amount of bleeding with debridement: Mild Bleeding Controlled with: Pressure Patient tolerated procedure: Patient tolerated procedure well Assessment/Plan Assessment: This is a 43-year-old generally healthy white male with severe chronic venous insufficiency, and clinical manifestations related to his chronic venous disease. His 2 left lateral calf ulcerations have failed to heal, despite implemented conservative treatment measures to date. The healing delay appears related to the patient's chronic venous insufficiency, venous hypertension with inflammation, varicose veins with inflammation, etc. 1. Non- healing wound of lower extremity (Acute). 2. Venous insufficiency of left lower extremity (Chronic). 3. History of vein stripping (Chronic). 4. Edema of both lower extremities (Chronic) Plan: Patient saw Dr. Fountain for venous evaluation a couple weeks ago. He recommends: The patient is to elevate his lower extremities much as possible. Leg elevation is to be to heart level, or higher. This is to be accomplished even during daytime hours. The patient is to continue sleeping on a flat mattress at night. Activity has been encouraged. Prolonged idle standing and sitting has been discouraged. Weight loss has also been recommended, as the patient is obese. Compression has been recommended as well, using at least 20- 30 mmHg compression. The patient has been encouraged to utilize his graduated compression stockings of 20-30 mmHg compression, as much as possible. Alternatively, a double or triple layer of Tubigrip's will be utilized. We have discussed the role of endovenous laser ablation of the incompetent veins in the left lower extremity. It is felt that the patient's pre-existing venous disease, which is severe in nature, it is likely accounting for the delay in healing of his traumatic left calf wounds. The indications and risks of endovenous laser ablation of the left great saphenous vein, the left small saphenous vein, and the left accessory saphenous vein have been discussed with the patient in detail. It is evident that conservative treatment measures have been unsuccessful in achieving successful healing of his left calf wounds. Addressing the issues related to his chronic venous disease will likely create a more favorable environment for wound healing, and would be expected to expedite the healing process. The patient wishes for Dr. Fountain to go ahead with the laser ablation. In the meantime, the patient will continue conservative treatment with Collagenase Santyl topically and debridements. On 10/07/18 His wound culture of his chronic left calf wounds, showed Staphylococcus areus, Streptococcus group C and A aero c cocc which he was started on Augmentin by Dr. Fountain. The patient has obtained mechanical pneumatic compression pumps, which he should by using several times daily. He will follow up in one week. Code Visit [id number]: 17672 Greta subq tissue 20 sq cm/<
== END 2018-10-20 23:59 ==
LOC: WC 08:30
PROVIDERS: Referring Provider Nurse Practitioner Family; Visit Provider Nurse Practitioner Family
DX: I83.222 Varicose veins of left lower extremity with both ulcer of calf and inflammation (principal); L97.222 Non-pressure chronic ulcer of left calf with fat layer exposed; I87.2 Venous insufficiency (chronic) (peripheral); S80.812A Abrasion, left lower leg, initial encounter; W45.8XXA Other foreign body or object entering through skin, initial encounter; R60.0 Localized edema; M79.2 Neuralgia and neuritis, unspecified
CPT/HCPCS: 11042; 87070; 87075; 87077; 87186; 87205; 87640

== ENCOUNTER 2018-10-28 08:42 | Outpatient (RCR) | payer BC, SELFPAY ==
[2018-10-21 00:59] VITALS: BP 146/86; PULSE 74; RESP 18; TEMP 36.4
[2018-10-28 15:26] VITALS: BP 143/80; PULSE 85; RESP 16; TEMP 36.6
--- NOTE | 2018-10-28 16:56 | PCM.WC.PN ---
(1) Non-healing wound of lower extremity Status: Chronic Qualifiers: Encounter type: initial encounter Laterality: left Qualified Code(s): S81.802A - Unspecified open wound, left lower leg, initial encounter Code(s): S81.809A - Unspecified open wound, unspecified lower leg, initial encounter (2) Venous insufficiency of left lower extremity Status: Chronic Code(s): I87.2 - Venous insufficiency (chronic) (peripheral) (3) Edema of both lower extremities Status: Chronic Code(s): R60.0 - Localized edema (4) Chronic venous insufficiency Status: Chronic Code(s): I87.2 - Venous insufficiency (chronic) (peripheral) (5) History of vein stripping Status: Chronic Code(s): Z98.890 - Other specified postprocedural states (6) Nerve pain Status: Chronic Code(s): M79.2 - Neuralgia and neuritis, unspecified Type of Wound Date of Service: 10/28/18 Chief Complaint: Chronic venous insufficiency; venous hypertension with ulceration and inflammation; varicose veins with ulceration and inflammation; leg swelling; leg edema; nonhealing wound of left lower extremity caused by dog scratch- March 2018. History of Wound: This is an otherwise healthy 43-year-old male who has a long-standing history of chronic venous insufficiency, left lower extremity venous hypertension, chronic venous insufficiency, as well as swelling and edema in the left lower extremity. The patient has had approximately 10 years of symptoms in his left lower extremity, which include pain, as well as chronic skin changes such as lipodermatosclerosis and hyperpigmentation. He denies a history of thrombophlebitis. Patient sustained a left lower leg wound caused by a scratch from his dog in March 2018. He ended up hospitalized with cellulitis and had IV antibiotics for MRSA at [facility]. Since March he has been on Keflex for MSSA. He has been treated at our wound center for several months, and is currently being treated with collagenase Santyl topically, and compression to his left lower extremity. He has been treated by conservative measures for many years relative to his chronic venous disease. He has been wearing prescription graduated compression stockings of 20-30 mmHg compression for many years as well. He claims that the compression stockings are painful to wear, and has been using a 2 or 3 layer Tubigrip to his left lower extremity in recent weeks. He has just recently obtained mechanical pneumatic compression pumps, which he is to use several times daily on his left lower extremity. He has a long-standing history of swelling and edema in his left lower extremity, typically worse at the end of the day. 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 He has previously undergone left lower extremity vein stripping in the remote past, approximately 20 years ago. The procedure was performed in a suburb of [place], [place], and the precise nature of the procedure is unknown. Venous duplex examination was performed on July 22, 2018, revealing incompetence of the left great saphenous vein in the thigh, apparent absence of the left great saphenous vein in the mid leg, and incompetence of the left great saphenous vein in the lower calf and ankle. The patient has been evaluated on an outpatient basis by Dr. Devyn Carrillo, vascular surgeon, who recommended reevaluation and possible endothermal venous ablation at a later date, once the patient's left lower extremity ulceration/wound has healed. Patient is scheduled to return to Dr. Carrillo for evaluation in several months. Despite conservative treatment measures implemented at our wound center, patient is shown little progress, and request has been made for a second opinion and further recommendations. Venous duplex examination was performed on July 22, 2018, revealing incompetence of the left great saphenous vein in the thigh, apparent absence of the left great saphenous vein in the mid leg, and incompetence of the left great saphenous vein in the lower calf and ankle. The left accessory saphenous vein is also noted to be incompetent, as is the left small saphenous vein. There is an incompetent left calf manometer technician vein located 7 cm proximal to the left medial malleolus. Progress of Wound: Not showing much improvement. Using Santyl, but this week seems to have more biofilm than he previously has had. Continues to have lower extremity edema. - Physical Exam Vital Signs Temp Pulse Resp BP 98 F 85 16 143/80 H 10/28/18 15:26 10/28/18 15:26 10/28/18 15:26 10/28/18 15:26 General: Alert, Oriented x3, Cooperative HEENT: Atraumatic Oral: Moist Mucosa Lungs: Normal air movement Cardiovascular: Regular rate Extremities: Capillary Refill Less than 3 Seconds, No Calf Tenderness, Diminished Peripheral Pulses, Edema Skin: Ulcer/ Wound - Left lower anterior leg Wound Measurements and Assessment WC - Nurse 1 - General Ulcer Measurement Start: 10/28/18 15:26 Freq: Status: Active Protocol: Activity Type Activity Date Activity User E-Sign Co-Sign Detail Recorded Client Recorded Date Recorded By Document 10/28/18 15:26 [id number] 10/28/18 15:32 CS 10/28/18 15:26 Wound Center Nurse 1 [Ulcer Assessment] 2-left inferior moralez -Combined with other wound No -Current Size (cm) - Length 0.6 -Current Size (cm) - Width 1 -Current Size (cm) - Depth 0.1 -Total Square Cm 0.6 -Date of Last Picture (Recall this 10/28/18 field) -Photo Taken Yes -Epithelialization Small 1-33% -Tunneling No -Undermining/Tunneling No -Circular Undermining No -Exudate Amt Small (1-33%) -Exudate Type Serosanguineous -Wound Margin Distinct, Outline Attached -Granulation Amt Large (67-100%) -Granulation Quality Hyper- granulation -Slough/Fibrin Yes -Necrosis Amt None Present (0 %) -Necrotic Tissue Type Adherent Slough -Structure Exposed None/Limited to Skin Breakdown -Texture (Adali-wound Skin Appearance) Scarring -Moisture (Adali-wound Skin Appearance No Abnormality ) -Color (Adali-wound Skin Appearance) Hemosiderin Staining -Temperature (Adali-wound Skin No Abnormality Appearance) (Pt Warm) -Tenderness on Palpation (Adali-wound Yes Skin Appearance) -Ulcer Cleansing Rinsed/ Irrigated with Saline -Foul Odor after Cleansing No -Anesthetic Used 5% Lidocaine Gel #1 Left superior moralez -Combined with other wound No -Current Size (cm) - Length 1.3 -Current Size (cm) - Width 1.7 -Current Size (cm) - Depth 0.1 -Total Square Cm 2.21 -Date of Last Picture (Recall this 10/28/18 field) -Photo Taken Yes -Epithelialization Small 1-33% -Tunneling No -Undermining/Tunneling No -Circular Undermining No -Exudate Amt Small (1-33%) -Exudate Type Serosanguineous -Wound Margin Distinct, Outline Attached -Granulation Amt Large (67-100%) -Granulation Quality Hyper- granulation Red -Slough/Fibrin Yes -Necrosis Amt None Present (0 %) -Necrotic Tissue Type Adherent Slough -Structure Exposed None/Limited to Skin Breakdown -Texture (Adali-wound Skin Appearance) Scarring -Moisture (Adali-wound Skin Appearance No Abnormality ) Assessed -Color (Adali-wound Skin Appearance) Hemosiderin Staining -Temperature (Adali-wound Skin No Abnormality Appearance) (Pt Warm) -Tenderness on Palpation (Adali-wound Yes Skin Appearance) -Ulcer Cleansing Rinsed/ Irrigated with Saline -Foul Odor after Cleansing No -Anesthetic Used 5% Lidocaine Gel [Edema Assessment] -Lower Limb Edema Present No -Left Calf (cm) 51 -Left Ankle (cm) 29 WC - Nurse 2 - General Ulcer CM Notes Start: 10/28/18 15:26 Freq: Status: Active Protocol: Activity Type Activity Date Activity User E-Sign Co-Sign Detail Recorded Client Recorded Date Recorded By Document 10/28/18 16:20 [id number] 10/28/18 16:22 CORI 10/28/18 16:20 Wound Center Nurse 2 [Procedure/Treatment] 2-left inferior moralez -Time 16:21 -Correct Patient Yes -Correct Side, Site, Position Yes -Correct Procedure Yes -Procedure Performed Yes -Type of Procedure Debridement -Clinical Debridement Subcutaneous -Post Debridement Size (cm) - Length 0.8 -Post Debridement Size (cm) - Width 0.7 -Post Debridement Size (cm) - Depth 0.1 -Total Square Cm 0.56 -Wound/Ulcer Outcome Not Healed -Ulcer Cleansing Rinsed/ Irrigated with Saline -Foul Odor after Cleansing No -Bioengineered Tissue No -Bleeding Controlled with Pressure -Offloading No -Treatment Response Procedure Tolerated Well #1 Left superior moralez -Time 16:21 -Correct Patient Yes -Correct Side, Site, Position Yes -Correct Procedure Yes -Procedure Performed Yes -Type of Procedure Debridement -Clinical Debridement Subcutaneous -Post Debridement Size (cm) - Length 1.8 -Post Debridement Size (cm) - Width 1.5 -Post Debridement Size (cm) - Depth 0.1 -Total Square Cm 2.70 -Wound/Ulcer Outcome Not Healed -Ulcer Cleansing Rinsed/ Irrigated with Saline -Foul Odor after Cleansing No -Bioengineered Tissue No -Bleeding Controlled with Pressure -Offloading No -Treatment Response Procedure Tolerated Well [See Physician Procedure note for Specifics] Pain Scale: 0-10 Numeric [Pain] -Is Patient Pain Free? Yes Musculoskeletal: No Tenderness to Palpation of Joints or Extremities Neurological: Neuro grossly intact Psych/Mental Status: Normal Affect, Appropriate Debridement Note Post-Debridement Measurements/Treatment WC - Nurse 2 - General Ulcer CM Notes Start: 10/28/18 15:26 Freq: Status: Active Protocol: Activity Type Activity Date Activity User E-Sign Co-Sign Detail Recorded Client Recorded Date Recorded By Document 10/28/18 16:20 [email or web address] 10/28/18 16:22 CORI 10/28/18 16:20 Wound Center Nurse 2 2-left inferior moralez -Time 16:21 -Correct Patient Yes -Correct Side, Site, Position Yes -Correct Procedure Yes -Procedure Performed Yes -Type of Procedure Debridement -Clinical Debridement Subcutaneous -Post Debridement Size (cm) - Length 0.8 -Post Debridement Size (cm) - Width 0.7 -Post Debridement Size (cm) - Depth 0.1 -Total Square Cm 0.56 -Wound/Ulcer Outcome Not Healed -Ulcer Cleansing Rinsed/ Irrigated with Saline -Foul Odor after Cleansing No -Bioengineered Tissue No -Bleeding Controlled with Pressure -Offloading No -Treatment Response Procedure Tolerated Well #1 Left superior moralez -Time 16:21 -Correct Patient Yes -Correct Side, Site, Position Yes -Correct Procedure Yes -Procedure Performed Yes -Type of Procedure Debridement -Clinical Debridement Subcutaneous -Post Debridement Size (cm) - Length 1.8 -Post Debridement Size (cm) - Width 1.5 -Post Debridement Size (cm) - Depth 0.1 -Total Square Cm 2.70 -Wound/Ulcer Outcome Not Healed -Ulcer Cleansing Rinsed/ Irrigated with Saline -Foul Odor after Cleansing No -Bioengineered Tissue No -Bleeding Controlled with Pressure -Offloading No -Treatment Response Procedure Tolerated Well Pain Scale: 0-10 Numeric Is Patient Pain Free? Yes Wound debrided: Left anterior leg Laterality: Left Type of Debridement: Excisional debridement Anesthesia Used: 4% Lidocaine Solution Depth: Down to and including healthy tissue, in the subcutaneous layer Percentage of wound debrided: 100 Instrument Used: 3mm curette Tissue Removed: Subcutaneous tissue and slough Severity: Limited To Skin Breakdown Amount of bleeding with debridement: Mild Bleeding Controlled with: Pressure Patient tolerated procedure well Assessment/Plan Assessment: This is a 43-year-old generally healthy white male with severe chronic venous insufficiency, and clinical manifestations related to his chronic venous disease. His 2 left lateral calf ulcerations have failed to heal, despite implemented conservative treatment measures to date. The healing delay appears related to the patient's chronic venous insufficiency, venous hypertension with inflammation, varicose veins with inflammation, etc. 1. Non-healing wound of lower extremity (Acute). 2. Venous insufficiency of left lower extremity (Chronic). 3. History of vein stripping (Chronic). 4. Edema of both lower extremities (Chronic) Plan: Conservative treatment measures relative to the patient's chronic disc disease have been discussed thoroughly. The patient is to elevate his lower extremities much as possible. Leg elevation is to be to heart level, or higher. This is to be accomplished even during daytime hours. The patient is to continue sleeping on a flat mattress at night. Activity has been encouraged. Prolonged idle standing and sitting has been discouraged. Weight loss has also been recommended, as the patient is obese. Compression has been recommended as well, using at least 20-30 mmHg compression. The patient has been encouraged to utilize his graduated compression stockings of 20-30 mmHg compression, as much as possible. Alternatively, a double or triple layer of Tubigrip's will be utilized. Collagenase Santyl is to be discontinued and will change him to a collegen silver. Serial debridements appear warranted, and will continue. We have cultured the chronic left calf wounds on 10/07/18 and was treated with Augmentin. We have discussed the role of endovenous laser ablation of the incompetent veins in the left lower extremity. It is felt that the patient's pre-existing venous disease, which is severe in nature, it is likely accounting for the delay in healing of his traumatic left calf wounds. The indications and risks of endovenous laser ablation of the left great saphenous vein, the left small saphenous vein, and the left accessory saphenous vein have been discussed with the patient in detail. It is evident that conservative treatment measures have been unsuccessful in achieving successful healing of his left calf wounds. Addressing the issues related to his chronic venous disease will likely create a more favorable environment for wound healing, and would be expected to expedite the healing process. The patient wishes for preauthorization to be initiated. The patient has obtained mechanical pneumatic compression pumps, which will be utilized several times daily. Patient has not heard anything about the ablation from Dr. Fountain's office. He also has questions that I am not able to answer. I will send him back to Dr. Fountain to be seen at the wound center next week so he can have some clarification on his questions. He may follow up with me in 2 weeks. The patient is not a smoker. Influenza vaccine was not administered today. The patient weighs 325 pounds. He stands 6 feet 3 inches tall. His BMI is 40.6. Weight loss has been recommended, and the patient has been advised to collaborate with his primary care physician in this regard. Code Visit [id number]: [id number] Greta subq tissue 20 sq cm/<
== END 2018-11-20 23:59 ==
LOC: WC 08:42
PROVIDERS: Referring Provider Nurse Practitioner Family; Visit Provider Nurse Practitioner Family
DX: I83.222 Varicose veins of left lower extremity with both ulcer of calf and inflammation (principal); L97.222 Non-pressure chronic ulcer of left calf with fat layer exposed; I87.2 Venous insufficiency (chronic) (peripheral); S80.812A Abrasion, left lower leg, initial encounter; W45.8XXA Other foreign body or object entering through skin, initial encounter; R60.0 Localized edema; M79.2 Neuralgia and neuritis, unspecified; Z86.14 Personal history of Methicillin resistant Staphylococcus aureus infection
CPT/HCPCS: 11042